=== PATIENT | male | born 1955 | race Two or more races ===

== ENCOUNTER 2023-03-20 10:22 | Inpatient (IN) | payer MEDICARE, MEDICAID ==
[~2023-03-20] VITALS: Ht 165.1 cm; Wt 71.8 kg
[2023-03-20] MEDS ORDERED: VANCOMYCIN 1 GM in IV D5W 250 ML IV ONE (11:00)
[2023-03-20] MEDS ORDERED: IV NS 0.9% 1,000 ML BAG IV ONE (11:00)
[2023-03-20] MEDS ORDERED: PIPERACILLIN /TAZOBACTAM 3.375 G in IV D5W 50 ML IV ONE (11:00)
--- NOTE | 2023-03-20 11:00 | NUR ---
pt BIBA for RLE wound. Hypotension on Ambulance. BP 98/48 upon arrival.
--- NOTE | 2023-03-20 11:15 | NUR ---
Straight cath inserted. 125cc collected. urine sent to lab
--- NOTE | 2023-03-20 11:22 | NUR ---
IV started on RW20g and LW 18g. flushing well no infiltration noted. Blood sent to lab
[2023-03-20 11:23] LABS: BASOPHILS % (AUTO) 0.6 % (0.0-2.0); EOSINOPHILS % (AUTO) 9.4 % (0.0-6.0); HEMATOCRIT 40 % (39-51); HEMOGLOBIN 12.6 g/dL (13.5-17.5); LYMPHOCYTES # (AUTO) 1.1 K/uL (0.8-4.8); LYMPHOCYTES % (AUTO) 19.4 % (20.0-44.0); MEAN CORPUSCULAR HGB CONC 32 g/dl (31.0-36.0); MEAN CORPUSCULAR VOLUME 84 fL (80-96); MONOCYTES # (AUTO) 0.5 K/uL (0.1-1.30); MONOCYTES % (AUTO) 9.9 % (2.0-12.0); NEUTROPHILS # (AUTO) 3.3 K/uL (1.8-8.9); NEUTROPHILS % (AUTO) 60.7 % (43.0-81.0); PLATELET COUNT (AUTO) 309 K/uL (150-450); RED BLOOD CELL COUNT(AUTO) 4.74 MIL/uL (4.5-6.0); WHITE BLOOD COUNT (AUTO) 5.5 K/uL (4.3-11.0)
--- NOTE | 2023-03-20 11:23 | NUR ---
IV medication started. no infiltration noted
[2023-03-20 11:35] LABS: CALCIUM, SERUM 9.2 mg/dL (8.5-10.1); CARBON DIOXIDE 26 mmol/L (21-32); CHLORIDE 107 mmol/L (98-107); CREATININE 0.8 mg/dL (0.6-1.3); GLUCOSE 101 mg/dL (74-106); POTASSIUM 4.5 mmol/L (3.5-5.1); SODIUM SERUM 140 mmol/L (136-145); UREA NITROGEN, BLOOD 35 mg/dL (7-18)
[2023-03-20 11:37] LABS: BILIRUBIN,URINE NEGATIVE (NEGATIVE); COLOR,URINE YELLOW (YELLOW); LEUKOCYTE ESTERASE ,URINE 3+ (NEGATIVE); NITRITE, URINE POSITIVE (NEGATIVE); PH,URINE 7.5 (5.0-8.0); PROTEIN,URINE 1+ mg/dl (NEGATIVE); UGLUCOSE NEGATIVE (NEGATIVE); UROBILINOGEN,URINE 0.2 EU/dL (0.2)
[2023-03-20 11:49] LABS: ALANINE AMINOTRANSFERASE 39 U/L (12-78); ALBUMIN 2.9 g/dL (3.4-5.0); ALKALINE PHOSPHATASE 107 U/L (46-116); ASPARTATE AMINOTRANSFERASE 36 U/L (15-37); BILIRUBIN,DIRECT 0.1 mg/dL (0.0-0.2); BILIRUBIN,TOTAL 0.1 mg/dL (0.2-1.0); TOTAL PROTEIN, SERUM 7.5 g/dL (6.4-8.2)
--- NOTE | 2023-03-20 12:21 | NUR ---
VERBAL CONSENT FROM SISTER TRINIDAD POE GIVEN, CONFIRMED BY 2RNS, CONSENT PHONE PLACED IN PT'S CHART.
[2023-03-20 12:30] LABS: BACTERIA,URINE Many /HPF (None Seen); SQUAMOUS EPITHELIAL CELL,UR Few /HPF (None Seen); WBC,URINE TOO NUMEROUS TO COUN /HPF (0-3)
--- NOTE | 2023-03-20 12:33 | NUR ---
SPOKE TO CHANGE ATTENDANT CLIFTON [phone]. ASKING FOR MD NOTE AND FACESHEET TO BE FAXED TO [phone]
--- NOTE | 2023-03-20 13:00 | NUR ---
called dr rosa, speaking with dr frias
--- NOTE | 2023-03-20 13:29 | NUR ---
CALLED NURSING SUP REGARDING PT BED
--- NOTE | 2023-03-20 14:19 | NUR ---
BED GIVEN 105
--- NOTE | 2023-03-20 14:50 | NUR ---
Report given to financial consultant for [facility]. Will send pt as soon as room is clean
--- NOTE | 2023-03-20 15:12 | NUR ---
PT TRANSFERRED TO [facility] WITH ACLS PROTOCOLS IN PLACE
--- NOTE | 2023-03-20 15:20 | NUR ---
RECEIVED PATIENT FROM ER, ALERT, COOPERATIVE. PT IS BEDBOUND, OBTUND, CRISTHIAN WITH FUNCTIONAL QUADRIPLEGIA. SKIN PROBLEM DOCUMENTED, NON HEALING WOUND RIGHT FOOT. PT S/P TRACH, NO MORE VENT DEPENDENT, ON RA WITH 100% SATURATION. S/P G-TUBE, DIET IS GLUCERNA 1.2 AT 50ML/HR. IV ACCESS RIGHT AND LEFT HANDS AND RIGHT UPPER ARM PICC LINE. WILL CONTINUE TO MONITOR.
[2023-03-20] MEDS ORDERED: ASCO-352 GT (16:31)
[2023-03-20] MEDS ORDERED: APIX5TAB GT (16:31)
[2023-03-20] MEDS ORDERED: DOCU-141 GT (16:31)
[2023-03-20] MEDS ORDERED: METO25TA20 GT (16:31)
[2023-03-20] MEDS ORDERED: DOXA2TAB2 GT (16:31)
[2023-03-20] MEDS ORDERED: FAMO20TA8 GT (16:31)
[2023-03-20] MEDS ORDERED: CHLO473M5 MM (16:31)
[2023-03-20] MEDS ORDERED: ASPI-1169 GT (16:31)
[2023-03-20] MEDS ORDERED: ALBU18HF2 IH ×2 (16:31)
[2023-03-20] MEDS ORDERED: MAGN400O6 GT (16:31)
[2023-03-20] MEDS ORDERED: INSU100V11 SQ (16:31)
[2023-03-20] MEDS ORDERED: MULT9LIQ6 GT (16:31)
[2023-03-20] MEDS ORDERED: NA P133E RC (16:31)
[2023-03-20] MEDS ORDERED: AMLO-212 GT (16:31)
[2023-03-20] MEDS ORDERED: AMIN30LI2 GT (16:31)
[2023-03-20] MEDS ORDERED: NUT.250L18 GT (16:31)
[2023-03-20] MEDS ORDERED: ARGI1POW13 GT (16:31)
[2023-03-20] MEDS ORDERED: ACET650S26 GT ×2 (16:31)
[2023-03-20] MEDS ORDERED: BISA10SU11 RC (16:31)
[2023-03-20] MEDS ORDERED: POTA20PA3 GT (16:31)
[2023-03-20] MEDS ORDERED: FURO-144 GT (16:31)
[2023-03-20] MEDS ORDERED: CRAN425C6 GT (16:31)
[2023-03-20] MEDS ORDERED: ISOS30TA86 GT (16:31)
[2023-03-20] MEDS ORDERED: LEVE500T9 GT (16:31)
[2023-03-20] MEDS ORDERED: HYDR-4076 GT (16:31)
[2023-03-20] MEDS ORDERED: MAGN400T26 GT (16:31)
[2023-03-20] MEDS ORDERED: POVI3780 TP (16:31)
[2023-03-20] MEDS ORDERED: Medication Not On Formulary EA (Cranberry Extract (Cranberry) 850 MG) GT SCH (17:00)
[2023-03-20] MEDS ORDERED: BISACODYL SUPP (10 MG) 10 MG/SUPP.RECT SUPP.RECT RC PRN (17:00)
[2023-03-20] MEDS ORDERED: MAGNESIUM HYDROXIDE 30 ML UDC GT PRN (17:00)
[2023-03-20] MEDS ORDERED: NA PHOS,M-B/NA PHOS,DI-BA 1 EA ENEMA RC PRN (17:00)
[2023-03-20] MEDS ORDERED: ACETAMINOPHEN 650 MG/20.3 ML UDC GT PRN (17:00)
[2023-03-20] MEDS ORDERED: ALBUTEROL FS 2.5 MG/0.5 ML VIAL.NEB IH PRN (17:30)
[2023-03-20] MEDS: CHLORHEXIDINE GLUCONATE 15 ML UDC MM SCH ×2 (17:54→17:58)
[2023-03-20] MEDS: FAMOTIDINE (20 MG) 20 MG TABLET GT SCH (17:58)
[2023-03-20] MEDS: ASPIRIN 81 MG TAB.CHEW GT SCH (17:58)
[2023-03-20] MEDS: ASCORBIC ACID 500 MG TABLET GT SCH (17:58)
[2023-03-20] MEDS: MULTIVIT W/MINERALS 1 TAB TABLET GT SCH (17:59)
[2023-03-20] MEDS: MAGNESIUM OXIDE 400 MG TABLET GT SCH (17:59)
[2023-03-20] MEDS ORDERED: Medication Not On Formulary EA (Arginine/Ascorbate Sod/Vite AC (Arginaid Powder) 1 EACH) GT SCH (18:00)
[2023-03-20] MEDS ORDERED: GLUCERNA 1.2 1,000 ML BOTTLE NG PRN (18:00)
[2023-03-20] MEDS ORDERED: PROSOURCE / PROSTAT (PYXIS) 30 ML UDC GT SCH (18:00)
[2023-03-20] MEDS: APIXABAN 5 MG TABLET GT SCH (18:01)
[2023-03-20] MEDS: IV NS 0.9% 1,000 ML IV PRN (18:03)
--- NOTE | 2023-03-20 18:50 | NUR ---
RN CLOSING NOTE. PT ASLEEP, ALL MEDS ADMINISTERED, ALL NEEDS ATTENDED. SAFETY MEASURES IMPLEMENTED, BED LOCKED AND IN LOWEST POSITION. WILL ENDORSE TO THE BULL RIVETER FOR JUAN PABLO.
--- NOTE | 2023-03-20 19:35 | NUR ---
RN OPENING NOTE RECEIVED PATIENT IN BED; AWAKE, ALERT AND ORIENTED X 1-2. ON ROOM AIR; TOLERATING WELL SATURATING @ 100%. BREATHING EVEN AND UNLABORED. ON EXTERNAL CARDIAC MONITORING WHICH READS A FLUTTER HR-74 BPM. NO S/S OF PAIN OR DISCOMFORT NOTED AT THIS TIME. WITH ARIADNA PICC LINE; PATENT, INTACT AND SALINE LOCKED. ANOTHER IV ACCESS ON RIGHT WRIST 20g; PATENT AND INTACT INFUSING WITH NS 1L REGULATED @ 100 ML/HR; FLUSHES WELL. WITH G-TUBE IN PLACE; PATENT AND INTACT RUNNING WITH GLUCERNA 1.2 REGULATED @ 50 ML/HR; FLUSHING WELL. NEEDS ANTICIPATED. SAFETY PRECAUTIONS IMPLEMENTED: HEAD OF BED ELEVATED, CALL LIGHT AND TABLE WITHIN REACH, SIDE RAILS UP X 3, BED IN LOWEST LOCKED POSITION. WILL CONTINUE TO MONITOR THROUGHOUT SHIFT.
[2023-03-20 20:00] VITALS: BP 111/52
[2023-03-20] MEDS: CEFTRIAXONE 1 G in IV D5W 50 ML IV SCH (20:27)
[2023-03-20] MEDS: LEVETIRACETAM SOL (5 ML) 100 MG/ML UDC GT SCH (20:30)
--- NOTE | 2023-03-20 21:12 | NUR ---
UNABLE TO PERFORM ARTERIAL U/S OF LOWER EXTREMITIES. BOTH LEGS ARE CONTRACTED. INFORMED RN TREVER.
[2023-03-21] VITALS: BP 99/50
[2023-03-21 04:00] VITALS: BP 99/54
--- NOTE | 2023-03-21 06:45 | NUR ---
RN NOTE CALLED TRINIDAD POE X 3 (SISTER:[phone]) TO GET TELEPHONE CONSENT FOR WOUND DEBRIDEMENT; UNABLE TO CONTACT. LEFT VOICEMAIL; AWAITING CALL BACK. CALLED TONIE POE (BROTHER:[phone]); HE CAN'T GIVE A CONSENT INSTEAD HE SAID TRINIDAD IS THE ONE WHO WILL GIVE THE CONSENT.
--- NOTE | 2023-03-21 06:50 | NUR ---
RN CLOSING NOTE PATIENT IN BED; AWAKE, A/O X 1-2. STILL ON ROOM AIR; WELL TOLERATING. IN NO ACUTE DISTRESS. ON EXTERNAL CARDIAC MONITORING WHICH READS A FLUTTER HR-63 BPM. NO S/S OF PAIN OR DISCOMFORT AT THIS TIME. WITH ARIADNA PICC LINE; PATENT, INTACT AND SALINE LOCKED. ANOTHER IV ACCESS ON RIGHT WRIST 20g; PATENT AND INTACT INFUSING WITH NS 1L REGULATED @ 100 ML/HR; FLUSHES WELL. WITH G-TUBE IN PLACE; PATENT AND INTACT RUNNING WITH GLUCERNA 1.2 RUNNING @ 50 ML/HR; FLUSHING WELL. ALL NEEDS ATTENDED. SAFETY PRECAUTIONS MAINTAINED: HEAD OF BED ELEVATED, CALL LIGHT AND TABLE WITHIN REACH, SIDE RAILS UP X 3, BED IN LOWEST LOCKED POSITION. ENDORSED TO MORNING SHIFT FOR JUAN PABLO.
[2023-03-21 08:00] VITALS: BP 117/59
[2023-03-21 08:01] LABS: BASOPHILS # (AUTO) 0.1 K/uL (0.0-0.2); BASOPHILS % (AUTO) 0.9 % (0.0-2.0); EOSINOPHILS % (AUTO) 11.9 % (0.0-6.0); HEMATOCRIT 36 % (39-51); HEMOGLOBIN 11.3 g/dL (13.5-17.5); LYMPHOCYTES # (AUTO) 1.1 K/uL (0.8-4.8); LYMPHOCYTES % (AUTO) 18.3 % (20.0-44.0); MEAN CORPUSCULAR HGB CONC 31 g/dl (31.0-36.0); MEAN CORPUSCULAR VOLUME 84 fL (80-96); MONOCYTES # (AUTO) 0.6 K/uL (0.1-1.30); MONOCYTES % (AUTO) 9.5 % (2.0-12.0); NEUTROPHILS # (AUTO) 3.5 K/uL (1.8-8.9); NEUTROPHILS % (AUTO) 59.4 % (43.0-81.0); PLATELET COUNT (AUTO) 285 K/uL (150-450); RED BLOOD CELL COUNT(AUTO) 4.31 MIL/uL (4.5-6.0); WHITE BLOOD COUNT (AUTO) 5.8 K/uL (4.3-11.0)
[2023-03-21 08:22] LABS: CREATININE 0.8 mg/dL (0.6-1.3); POTASSIUM 3.8 mmol/L (3.5-5.1)
--- NOTE | 2023-03-21 08:48 | NUR ---
WOUND CARE CONSULT: PT PRESENTS WITH SACRAL SCARRING, SCARRING TO LEFT LATERAL ANKLE, FRAGILE SKIN, RT 2ND TOE AND RT HEEL PURULENT WOUNDS, PRESENT ON ADMISSION. PT HAS LOWER EXTREMITY CONTRACTURES. PT IS INCONTINENT. DEFER TO PODIATRY FOR WOUND TREATMENT PLAN. DISCUSSED SKIN PROTECTION WITH NURSING STAFF. M D IN AGREEMENT WITH PLAN OF CARE. PT IS ON [place] [facility] LOW AIRLOSS BED.
[2023-03-21] MEDS ORDERED: Z GUARD REMEDY 4 OZ OINT TP PRN (09:00)
[2023-03-21] MEDS: APIXABAN 5 MG TABLET GT SCH ×2 (09:00→17:00)
--- NOTE | 2023-03-21 11:27 | NUR ---
RN NOTE PATIENT'S SISTER TRINIDAD ([phone] CONSENTED ON TELEPHONE, FOR PATIENT TO HAVE MRI OF RIGHT FOOT WITHOUT CONTRAST, AND FOR RIGHT FOOT WOUND DEBRIDEMENT, PARTIAL CALCENECTOMY, POSSIBLE RIGHT SECOND TOE AMPUTATION, AND BLOOD TRANSFUSION CONSENTS PLACED IN CHART.
[2023-03-21] MEDS: VANCOMYCIN 1 GM in IV D5W 250ml IV SCH ×2 (11:41→22:00)
[2023-03-21] MEDS: DAKINS QUARTER STRENGTH (0.125%) 480 ML BOTTLE TOP SCH (11:42)
[2023-03-21] MEDS: Z GUARD REMEDY 4 OZ OINT TP SCH (11:42)
[2023-03-21] MEDS: AMMONIUM LACTATE 227 GM BOTTLE TP SCH ×2 (11:43→17:24)
[2023-03-21 12:00] VITALS: BP 131/78
[2023-03-21] MEDS: PROSOURCE / PROSTAT (PYXIS) 30 ML UDC GT SCH ×2 (13:49→19:22)
[2023-03-21] MEDS: FAMOTIDINE (20 MG) 20 MG TABLET GT SCH ×2 (13:52→19:22)
[2023-03-21] MEDS: LEVETIRACETAM SOL (5 ML) 100 MG/ML UDC GT SCH ×2 (13:52→20:47)
[2023-03-21] MEDS: IV NS 0.9% 1,000 ML IV PRN ×2 (13:53→23:47)
[2023-03-21 16:00] VITALS: BP 122/66
--- NOTE | 2023-03-21 17:17 | NUR ---
RN NOTE WOUND CULTURE OF R HEEL SENT TO LAB AT THIS TIME.
--- NOTE | 2023-03-21 19:09 | NUR ---
RN NOTE ELIQUIS DOES HELD AT THIS TIME DUE TO POSSIBLE AMPUTATION FRIDAY.
[2023-03-21] MEDS: CHLORHEXIDINE GLUCONATE 15 ML UDC MM SCH (19:22)
[2023-03-21] MEDS: ASPIRIN 81 MG TAB.CHEW GT SCH (19:22)
[2023-03-21] MEDS: MAGNESIUM OXIDE 400 MG TABLET GT SCH (19:23)
[2023-03-21] MEDS: ASCORBIC ACID 500 MG TABLET GT SCH (19:23)
[2023-03-21] MEDS: MULTIVIT W/MINERALS 1 TAB TABLET GT SCH (19:23)
--- NOTE | 2023-03-21 19:53 | NUR ---
RN CLOSING NOTE PATIENT IN BED; AWAKE, A/O X 1-2. BREATHING STILL ON ROOM AIR; WELL TOLERATING. IN NO ACUTE DISTRESS. ON EXTERNAL CARDIAC MONITORING WHICH READS A FLUTTER HR 77 BPM. NO S/S OF PAIN OR DISCOMFORT AT THIS TIME. WITH ARIADNA PICC LINE; PATENT, INTACT AND SALINE LOCKED. ANOTHER IV ACCESS ON RIGHT WRIST 20g; PATENT AND INTACT INFUSING WITH NS 1L REGULATED @ 100 ML/HR; FLUSHES WELL. WITH G-TUBE IN PLACE; PATENT AND INTACT RUNNING WITH GLUCERNA 1.2 RUNNING @ 65ML/HR; FLUSHING WELL. ALL NEEDS ATTENDED. SAFETY PRECAUTIONS MAINTAINED: HEAD OF BED ELEVATED, CALL LIGHT AND TABLE WITHIN REACH, SIDE RAILS UP X 3, BED IN LOWEST LOCKED POSITION. ENDORSED TO DIRECTOR ASSET FOR JUAN PABLO.
[2023-03-21 20:00] VITALS: BP 131/73
[2023-03-21] MEDS: CEFTRIAXONE 1 G in IV D5W 50 ML IV SCH (20:45)
[2023-03-21] MEDS: MUPIROCIN OINT 2% 22 GM TUBE NS SCH (20:47)
[2023-03-22] VITALS: BP 127/63
[2023-03-22 04:00] VITALS: BP 116/65
[2023-03-22] MEDS: GLUCERNA 1.2 1,000 ML BOTTLE NG PRN (06:02)
--- NOTE | 2023-03-22 06:51 | NUR ---
RN NOTES PATIENT REMAOINS STABLE NO SIGNIFICANT CHANGES. ALL DUE MEDS GIVEN ORDERED. NGT RUNNING @ 65 CC/HR TOLERATING WELL NO RESIDUAL NOTED. ALL NEEDS ATTENDED. KEPT CLEAN AND DRY AT ALL TIMES. WILL ENDORSED TO [id number] SHIFT FOR JUAN PABLO
[2023-03-22 08:00] VITALS: BP 143/59
[2023-03-22 09:34] LABS: BASOPHILS # (AUTO) 0.1 K/uL (0.0-0.2); BASOPHILS % (AUTO) 0.9 % (0.0-2.0); EOSINOPHILS % (AUTO) 11.9 % (0.0-6.0); HEMATOCRIT 38 % (39-51); HEMOGLOBIN 11.8 g/dL (13.5-17.5); LYMPHOCYTES # (AUTO) 1.4 K/uL (0.8-4.8); LYMPHOCYTES % (AUTO) 20.2 % (20.0-44.0); MEAN CORPUSCULAR HGB CONC 31 g/dl (31.0-36.0); MEAN CORPUSCULAR VOLUME 84 fL (80-96); MONOCYTES # (AUTO) 0.6 K/uL (0.1-1.30); MONOCYTES % (AUTO) 9.3 % (2.0-12.0); NEUTROPHILS # (AUTO) 3.9 K/uL (1.8-8.9); NEUTROPHILS % (AUTO) 57.7 % (43.0-81.0); PLATELET COUNT (AUTO) 252 K/uL (150-450); RED BLOOD CELL COUNT(AUTO) 4.47 MIL/uL (4.5-6.0); WHITE BLOOD COUNT (AUTO) 6.7 K/uL (4.3-11.0)
[2023-03-22 09:45] LABS: ALBUMIN 2.8 g/dL (3.4-5.0); BILIRUBIN,TOTAL 0.2 mg/dL (0.2-1.0); CALCIUM, SERUM 8.7 mg/dL (8.5-10.1); CREATININE 0.6 mg/dL (0.6-1.3); POTASSIUM 3.6 mmol/L (3.5-5.1); TOTAL PROTEIN, SERUM 7.2 g/dL (6.4-8.2)
[2023-03-22] MEDS: MUPIROCIN OINT 2% 22 GM TUBE NS SCH ×2 (09:48→21:30)
[2023-03-22] MEDS: AMMONIUM LACTATE 227 GM BOTTLE TP SCH ×2 (09:48→17:00)
[2023-03-22] MEDS: DAKINS QUARTER STRENGTH (0.125%) 480 ML BOTTLE TOP SCH (09:48)
[2023-03-22] MEDS: Z GUARD REMEDY 4 OZ OINT TP SCH (09:48)
[2023-03-22] MEDS: IV NS 0.9% 1,000 ML IV PRN ×2 (09:51→19:50)
[2023-03-22] MEDS: PROSOURCE / PROSTAT (PYXIS) 30 ML UDC GT SCH ×2 (10:19→18:40)
[2023-03-22] MEDS: APIXABAN 5 MG TABLET GT SCH ×2 (10:19→18:38)
[2023-03-22] MEDS: LEVETIRACETAM SOL (5 ML) 100 MG/ML UDC GT SCH ×2 (10:20→21:26)
[2023-03-22] MEDS: CHLORHEXIDINE GLUCONATE 15 ML UDC MM SCH ×2 (10:20→18:40)
[2023-03-22] MEDS: VANCOMYCIN 1 GM in IV D5W 250ml IV SCH ×2 (10:20→22:03)
[2023-03-22] MEDS: FAMOTIDINE (20 MG) 20 MG TABLET GT SCH ×2 (10:20→18:40)
--- NOTE | 2023-03-22 10:21 | NUR ---
RN NOTE PER ROBERTO AT PHARMACY OK TO GIVE 1000 VANCO DOSE. TROUGH LEVEL IS ORDERED FOR TODAY AT 1900.
[2023-03-22 12:00] VITALS: BP 149/54
[2023-03-22 16:00] VITALS: BP 150/64
[2023-03-22] MEDS: ASCORBIC ACID 500 MG TABLET GT SCH (18:39)
[2023-03-22] MEDS: ASPIRIN 81 MG TAB.CHEW GT SCH (18:40)
[2023-03-22] MEDS: MAGNESIUM OXIDE 400 MG TABLET GT SCH (18:40)
[2023-03-22] MEDS: MULTIVIT W/MINERALS 1 TAB TABLET GT SCH (18:40)
[2023-03-22] MEDS: CEFTRIAXONE 1 G in IV D5W 50 ML IV SCH (19:40)
--- NOTE | 2023-03-22 19:52 | NUR ---
RN CLOSING NOTE PATIENT IN BED; AWAKE, A/O X 3-4. BREATHING STILL ON ROOM AIR; WELL TOLERATING. IN NO ACUTE DISTRESS. ON EXTERNAL CARDIAC MONITORING WHICH READS A FLUTTER HR 93 BPM. NO S/S OF PAIN OR DISCOMFORT AT THIS TIME. WITH ARIADNA PICC LINE; PATENT, INTACT AND SALINE LOCKED. ANOTHER IV ACCESS ON RIGHT WRIST 20g; PATENT AND INTACT INFUSING WITH NS 1L REGULATED @ 100 ML/HR; FLUSHES WELL. WITH G-TUBE IN PLACE; PATENT AND INTACT RUNNING WITH GLUCERNA 1.2 RUNNING @ 65ML/HR; FLUSHING WELL. ALL NEEDS ATTENDED. KEPT WOUNDS CLEAN AND DRY. ALL SAFETY PRECAUTIONS MAINTAINED: HEAD OF BED ELEVATED AT 40 DEGREES, CALL LIGHT AND TABLE WITHIN REACH, SIDE RAILS UP X 3, BED IN LOWEST LOCKED POSITION. ENDORSED TO WATCHMAKING TEACHER FOR JUAN PABLO.
[2023-03-22 20:00] VITALS: BP_SYST 108; BP_SYST 118; BP_SYST 148; BP_DIAS 39; BP_DIAS 89
[2023-03-23] VITALS (7 sets, daily range): BP systolic 110–139; BP diastolic 60–73
[2023-03-23] MEDS: GLUCERNA 1.2 1,000 ML BOTTLE NG PRN ×2 (00:45→17:35)
--- NOTE | 2023-03-23 04:42 | NUR ---
CLOSING NOTES: ALERT / ORX1 HIS EYES WILL WATCH WHAT I AM DOING TACH CARE AND ORAL CARE GIVEN GT FEEDING RUNNING VIA PUMP NO RESIDUAL HOB KEPT ELEVATED 40 DEGREES ASP PRECAUTIONS DIAPER ON VANCO TROUGH WAS DONE AT 2100 LAST NIGHT RESULTS BEING 14
[2023-03-23 07:30] LABS: CALCIUM, SERUM 8.8 mg/dL (8.5-10.1); CREATININE 0.6 mg/dL (0.6-1.3); POTASSIUM 3.4 mmol/L (3.5-5.1)
--- NOTE | 2023-03-23 07:56 | NUR ---
RN OPENING NOTE RECEIVED PATIENT IN BED AO x 1, ABLE TO RESPONDS PHYSICAL STIMULI. RESPIRATORY EVEN AND UNLABORED IN ROOM AIR. IN NO ACUTE RESPIRATORY DISTRESS OBSERVED. SKIN IS WARM TO TOUCH, KEEP CLEAN/DRY. KEPT ELEVATED HOB FOR ASPIRATION PRECAUTION AND ENSURE AIRWAY, ALSO LOWEST BED POSITIONED. BED ALARM IS ON AT ALL TIMES FOR SAFETY. CALL LIGHT WITHIN REACH, WILL CONTINUE TO MONITOR.
[2023-03-23] MEDS ORDERED: POTASSIUM CHLORIDE 20 MEQ POWDER PACKET PO SCH (09:30)
[2023-03-23] MEDS: LEVETIRACETAM SOL (5 ML) 100 MG/ML UDC GT SCH ×2 (09:38→21:14)
[2023-03-23] MEDS: CHLORHEXIDINE GLUCONATE 15 ML UDC MM SCH ×2 (09:38→17:25)
[2023-03-23] MEDS: FAMOTIDINE (20 MG) 20 MG TABLET GT SCH ×2 (09:39→17:24)
[2023-03-23] MEDS: PROSOURCE / PROSTAT (PYXIS) 30 ML UDC GT SCH ×2 (09:39→17:25)
[2023-03-23] MEDS: APIXABAN 5 MG TABLET GT SCH ×2 (09:41→17:00)
[2023-03-23] MEDS: DAKINS QUARTER STRENGTH (0.125%) 480 ML BOTTLE TOP SCH (09:43)
[2023-03-23] MEDS: AMMONIUM LACTATE 227 GM BOTTLE TP SCH ×2 (09:44→17:26)
[2023-03-23] MEDS: VANCOMYCIN 1 GM in IV D5W 250ml IV SCH ×2 (09:44→21:14)
[2023-03-23] MEDS: Z GUARD REMEDY 4 OZ OINT TP SCH (09:44)
[2023-03-23] MEDS: IV NS 0.9% 1,000 ML IV PRN (10:02)
[2023-03-23] MEDS ORDERED: POTASSIUM CHLORIDE 20 MEQ POWDER PACKET PO ONE (11:30)
--- NOTE | 2023-03-23 11:51 | NUR ---
DR. WARNER ORDERED POTASSIUM 40 EMQ, BUT PATIENT HAD [address] WARNER CANCELLED POTASSIUM 40 MEQ.
[2023-03-23] MEDS: MUPIROCIN OINT 2% 22 GM TUBE NS SCH ×2 (14:02→20:34)
[2023-03-23] MEDS: MULTIVIT W/MINERALS 1 TAB TABLET GT SCH (17:24)
[2023-03-23] MEDS: ASPIRIN 81 MG TAB.CHEW GT SCH (17:24)
[2023-03-23] MEDS: MAGNESIUM OXIDE 400 MG TABLET GT SCH (17:24)
[2023-03-23] MEDS: ASCORBIC ACID 500 MG TABLET GT SCH (17:25)
--- NOTE | 2023-03-23 17:27 | NUR ---
PATIENT GOING HAVE SX TOMORROW, ASKED DR. MOMIN AND WILL HOLD ELIQUISE AT THIS TIME.
--- NOTE | 2023-03-23 18:30 | NUR ---
RN CLOSING NOTE PATIENT RESTING IN BED. IN NO ACUTE DISTRESS OBSERVED. RESPIRATORY EVEN AND UNLABORED IN ROOM AIR, O2SAT 100%, NO SOB OR DESATURATION NOTED. SKIN IS WARM TO TOUCH KEEP CLEAN/DRY. KEPT ELEVATED HOB FOR ENSURE AIRWAY AND ASPIRATION PRECAUTION, ALSO LOWEST BED POSITION. BED ALARM IS ON AT ALL TIMES FOR SAFETY. PATIENT GOING PROCEDURE FOR AMPUTATE AND NPO AFTER MN. CALL LIGHT WITHIN REACH, WILL ENDORSE PARTS EXPEDITER.
--- NOTE | 2023-03-23 19:41 | NUR ---
RN OPENING NOTE RECEIVED PATIENT IN BED AO x 1. RESPIRATORY EVEN AND UNLABORED IN ROOM AIR. IN NO ACUTE RESPIRATORY DISTRESS OBSERVED. SKIN IS WARM TO TOUCH, KEEP CLEAN/DRY. KEPT ELEVATED HOB FOR ASPIRATION PRECAUTION AND ENSURE AIRWAY, ALSO LOWEST BED POSITIONED. BED ALARM IS ON AT ALL TIMES FOR SAFETY. G TUBE RUNNING GLUCERNA 1.2 @65 ML/HR TOLERATING WELL. NO RESIDUAL NOTED.CALL LIGHT WITHIN REACH.
[2023-03-23] MEDS: CEFTRIAXONE 1 G in IV D5W 50 ML IV SCH (19:48)
--- NOTE | 2023-03-24 00:08 | NUR ---
RN NOTE PT DISCONNECTED FROM FEEDING AT THIS TIME HE IS TO MAINTAIN NPO FOR DEBRIDEMENT IN THE AM.
[2023-03-24 00:33] VITALS: BP 142/81
[2023-03-24 04:00] VITALS: BP 145/83
--- NOTE | 2023-03-24 06:50 | NUR ---
RN CLOSING NOTE PATIENT IN BED AO x 2. RESPIRATORY EVEN AND UNLABORED IN ROOM AIR. IN NO ACUTE RESPIRATORY DISTRESS OBSERVED. SKIN IS WARM TO TOUCH, KEEP CLEAN/DRY. KEPT ELEVATED HOB FOR ASPIRATION PRECAUTION AND ENSURE AIRWAY, ALSO LOWEST BED POSITIONED. BED ALARM IS ON AT ALL TIMES FOR SAFETY. NPO SINCE MIDNIGHT FOR DEBRIDEMENT PROCEDURE TODAY.CALL LIGHT WITHIN REACH.CALL LIGHT WITHIN REACH HOB ELEVATED. BILATERAL SIDE RAILS UP FOR SAFETY.
--- NOTE | 2023-03-24 07:00 | NUR ---
RN OPENING NOTE RECEIVE PATIENT IN BED A0 X1, IN BED, ON ROOM AIR BREATHING EVEN AND UNLABORED, IV SITE ARIADNA PICC LINE WITH NS RUNNING 100ML/HR. IV FLUSHING WELL AND INTACT. HEAD OF BED ELEVATED, BED IN LOWEST AND LOCKED POSITION, ALL SAFETY MEASURES IN PLACE, CALL LIGHT WITHIN REACH. WILL CONTINUE TO MONITOR
[2023-03-24 08:00] VITALS: BP 120/47
[2023-03-24 08:04] LABS: CALCIUM, SERUM 8.7 mg/dL (8.5-10.1); CREATININE 0.7 mg/dL (0.6-1.3); POTASSIUM 3.6 mmol/L (3.5-5.1)
[2023-03-24] MEDS: CHLORHEXIDINE GLUCONATE 15 ML UDC MM SCH ×2 (08:17→16:33)
[2023-03-24] MEDS: LEVETIRACETAM SOL (5 ML) 100 MG/ML UDC GT SCH ×2 (08:17→20:13)
[2023-03-24] MEDS: APIXABAN 5 MG TABLET GT SCH ×2 (08:18→22:11)
--- NOTE | 2023-03-24 08:19 | NUR ---
RN NOTE CHANO HELD, PATIENT IS SCHEDULED FOR WOUND DEBRIDEMENT TODAY
[2023-03-24] MEDS: FAMOTIDINE (20 MG) 20 MG TABLET GT SCH ×2 (08:20→16:33)
[2023-03-24] MEDS: DAKINS QUARTER STRENGTH (0.125%) 480 ML BOTTLE TOP SCH (08:33)
[2023-03-24] MEDS: Z GUARD REMEDY 4 OZ OINT TP SCH (08:34)
[2023-03-24] MEDS: AMMONIUM LACTATE 227 GM BOTTLE TP SCH ×2 (08:35→16:34)
[2023-03-24] MEDS: MUPIROCIN OINT 2% 22 GM TUBE NS SCH ×2 (08:35→22:13)
[2023-03-24] MEDS: PROSOURCE / PROSTAT (PYXIS) 30 ML UDC GT SCH ×2 (08:36→16:33)
[2023-03-24] MEDS: VANCOMYCIN 1 GM in IV D5W 250ml IV SCH (10:31)
--- NOTE | 2023-03-24 11:50 | NUR ---
RN NOTES: PT PICKED UP BY SURGERY STAFF, CALLED SISTER VIA PHONE CONSENTED BLOOD TRANSFUSION IN CASE NEEDED, PT LEFT IN STABLE CONDITION
[2023-03-24] MEDS ORDERED: BUPIVACAINE 0.25% 75 MG/30 ML VIAL ONE (12:55)
[2023-03-24] MEDS ORDERED: LIDOCAINE HCL/MPF 1% 30 ML VIAL IJ ONE (12:55)
[2023-03-24] MEDS ORDERED: LEVOFLOXACIN 500 MG /D5W 100ML 500 MG in PREMIX 1 EA IV SCH (14:00)
--- NOTE | 2023-03-24 15:00 | NUR ---
RN NOTES: PT IS BACK PER SURGERY RN MAY RIGHT HEEL DEBRIDEMENT DONE, RIGHT SECOND TOE AMPUTATION DONE, NO BLEEDING NOTED AT THIS TIME, VITAL SIGNS BP 123/58, TEMP 97.8,HR 94,RR 14, O2 SAT 100 % ON ROOM AIR WILL MONITOR
[2023-03-24 16:00] VITALS: BP 120/47
[2023-03-24] MEDS: ASPIRIN 81 MG TAB.CHEW GT SCH (17:45)
[2023-03-24] MEDS: MULTIVIT W/MINERALS 1 TAB TABLET GT SCH (17:45)
[2023-03-24] MEDS: ASCORBIC ACID 500 MG TABLET GT SCH (17:46)
[2023-03-24] MEDS: MAGNESIUM OXIDE 400 MG TABLET GT SCH (17:49)
--- NOTE | 2023-03-24 19:30 | NUR ---
PROJECT ASSISTANT OPENING NOTES RECEIVED PATIENT IN BED AWAKE. A/O x 2. ON ROOM AIR, BREATHING EVEN AND UNLABORED, RESPIRATORY EVEN AND UNLABORED, NO ACUTE RESPIRATORY DISTRESS AND SOB NOTED AT THIS TIME. HOB ELEVATED FOR ASPIRATION PRECAUTION. PICC LINE ARIADNA RUNNING NS @100ML/HR. GT WITH GLUCERNA RUNNING @ 65ML/HR. SAFETY PRECAUSTIONS IN PLACE WITH BED IN LOWEST LOCKED POSITION, SIDE RAILS UPX 2. CALL LIGHT WITHIN EASY REACH. WILL CONTINUE WITH THE PLAN OF CARE.
--- NOTE | 2023-03-24 19:36 | NUR ---
RN CLOSING NOTE PATIENT IN BED AO x 2. RESPIRATORY EVEN AND UNLABORED IN ROOM AIR. IN NO ACUTE RESPIRATORY DISTRESS OBSERVED. SKIN IS WARM TO TOUCH, KEEP CLEAN/DRY. KEPT ELEVATED HOB FOR ASPIRATION PRECAUTION AND ENSURE AIRWAY, ALSO LOWEST BED POSITIONED. BED ALARM IS ON AT ALL TIMES FOR SAFETY.CALL LIGHT WITHIN REACH.CALL LIGHT WITHIN REACH HOB ELEVATED. BILATERAL SIDE RAILS UP FOR SAFETY.
[2023-03-24 20:00] VITALS: BP 127/60
[2023-03-24] MEDS: IV NS 0.9% 1,000 ML IV PRN (20:00)
[2023-03-24] MEDS: CIPROFLOXACIN HCL 500 MG TABLET PO SCH (20:13)
[2023-03-24] MEDS ORDERED: SULFAMETH/TRIMETH 800/160 MG 1 UDTAB TABLET PO SCH (21:00)
[2023-03-24 23:35] VITALS: BP 127/60
[2023-03-25] VITALS: BP 138/64
[2023-03-25] MEDS: GLUCERNA 1.2 1,000 ML BOTTLE NG PRN (01:41)
[2023-03-25] MEDS: IV NS 0.9% 1,000 ML IV PRN (05:47)
--- NOTE | 2023-03-25 07:14 | NUR ---
[employer] TECHNICAL MANAGER OPENING NOTES PATIENT RECEIVED IN BED. AO x2-3. CALM AND COOPERATIVE. ON TELE MONITOR. STATUS POST TRACH WITH CAP. ON ROOM AIR WITH BREATHING EVEN AND UNLABORED AND NO S/S OF RESPIRATORY DISTRESS OR SOB. SAFETY MEASURES IN PLACE, WITH BED IN LOWEST AND LOCKED POSITION, SIDE RAILS UP X3, BED ALARM ON, AND CALL LIGHT AND BEDSIDE TABLE WITHIN REACH. WILL CONTINUE TO MONITOR.
[2023-03-25] MEDS ORDERED: SULFAMETH/TRIMETH 800/160 MG 1 UDTAB TABLET GT SCH (07:25)
[2023-03-25 07:39] LABS: BASOPHILS % (AUTO) 0.5 % (0.0-2.0); EOSINOPHILS % (AUTO) 8.9 % (0.0-6.0); HEMATOCRIT 37 % (39-51); HEMOGLOBIN 11.9 g/dL (13.5-17.5); LYMPHOCYTES # (AUTO) 1.2 K/uL (0.8-4.8); LYMPHOCYTES % (AUTO) 16.1 % (20.0-44.0); MEAN CORPUSCULAR HGB CONC 33 g/dl (31.0-36.0); MEAN CORPUSCULAR VOLUME 84 fL (80-96); MONOCYTES # (AUTO) 0.7 K/uL (0.1-1.30); MONOCYTES % (AUTO) 8.9 % (2.0-12.0); NEUTROPHILS % (AUTO) 65.6 % (43.0-81.0); PLATELET COUNT (AUTO) 276 K/uL (150-450); RED BLOOD CELL COUNT(AUTO) 4.36 MIL/uL (4.5-6.0); WHITE BLOOD COUNT (AUTO) 7.6 K/uL (4.3-11.0)
[2023-03-25 07:51] LABS: CALCIUM, SERUM 8.6 mg/dL (8.5-10.1); CREATININE 0.7 mg/dL (0.6-1.3); POTASSIUM 3.7 mmol/L (3.5-5.1)
[2023-03-25 07:57] VITALS: BP 142/71
[2023-03-25 08:00] VITALS: BP 148/65
[2023-03-25] MEDS: CIPROFLOXACIN HCL 500 MG TABLET PO SCH (08:06)
[2023-03-25] MEDS: APIXABAN 5 MG TABLET GT SCH (08:08)
[2023-03-25] MEDS: FAMOTIDINE (20 MG) 20 MG TABLET GT SCH (08:08)
[2023-03-25] MEDS: CHLORHEXIDINE GLUCONATE 15 ML UDC MM SCH (08:08)
[2023-03-25] MEDS: LEVETIRACETAM SOL (5 ML) 100 MG/ML UDC GT SCH (08:08)
[2023-03-25] MEDS: PROSOURCE / PROSTAT (PYXIS) 30 ML UDC GT SCH (08:09)
[2023-03-25] MEDS ORDERED: SULF1TAB48 PO (08:48)
[2023-03-25] MEDS ORDERED: CIPR-262 PO (08:48)
[2023-03-25] MEDS: DAKINS QUARTER STRENGTH (0.125%) 480 ML BOTTLE TOP SCH (09:33)
[2023-03-25] MEDS: AMMONIUM LACTATE 227 GM BOTTLE TP SCH (09:33)
[2023-03-25] MEDS: Z GUARD REMEDY 4 OZ OINT TP SCH (09:33)
[2023-03-25] MEDS: MUPIROCIN OINT 2% 22 GM TUBE NS SCH (09:33)
--- NOTE | 2023-03-25 09:45 | NUR ---
PHOTO TAKEN OF AMPUTATED TOE. PICTURE PLACED IN CHART.
--- NOTE | 2023-03-25 11:33 | NUR ---
RAPID TEST GIVEN AND RETURNED TO LAB
[2023-03-25 12:00] VITALS: BP 119/54
== END 2023-03-25 15:58 | DRG 853 ==
LOC: ER 10:36 → TELE1 14:41 → MEDSG1 03-25 10:37
PROVIDERS: ADMIT Internal Medicine; ATTEND Internal Medicine
PROC: 02HV33Z Insertion of Infusion Device into Superior Vena Cava, Percutaneous Approach (ICD-10-PCS; 2023-03-20)
PROC: B548ZZA Ultrasonography of Superior Vena Cava, Guidance (ICD-10-PCS; 2023-03-20)
PROC: 0Y6R0Z1 Detachment at Right 2nd Toe, High, Open Approach (ICD-10-PCS; principal; 2023-03-24)
PROC: 0QBL0ZZ Excision of Right Tarsal, Open Approach (ICD-10-PCS; 2023-03-24)
DX: A41.9 Sepsis, unspecified organism (principal); R53.2 Functional quadriplegia; E11.52 Type 2 diabetes mellitus with diabetic peripheral angiopathy with gangrene; J96.10 Chronic respiratory failure, unspecified whether with hypoxia or hypercapnia; I69.351 Hemiplegia and hemiparesis following cerebral infarction affecting right dominant side; N39.0 Urinary tract infection, site not specified; M86.171 Other acute osteomyelitis, right ankle and foot; I70.92 Chronic total occlusion of artery of the extremities; I70.268 Atherosclerosis of native arteries of extremities with gangrene, other extremity; L97.414 Non-pressure chronic ulcer of right heel and midfoot with necrosis of bone; E11.51 Type 2 diabetes mellitus with diabetic peripheral angiopathy without gangrene; E11.621 Type 2 diabetes mellitus with foot ulcer; I50.9 Heart failure, unspecified; I11.0 Hypertensive heart disease with heart failure; R13.10 Dysphagia, unspecified; E78.5 Hyperlipidemia, unspecified; I48.0 Paroxysmal atrial fibrillation; Z74.01 Bed confinement status; M24.561 Contracture, right knee; M24.562 Contracture, left knee; E11.69 Type 2 diabetes mellitus with other specified complication; R56.9 Unspecified convulsions; Z20.822 Contact with and (suspected) exposure to COVID-19; M62.50 Muscle wasting and atrophy, not elsewhere classified, unspecified site; Z79.01 Long term (current) use of anticoagulants; S90.32XA Contusion of left foot, initial encounter; S90.31XA Contusion of right foot, initial encounter; X58.XXXA Exposure to other specified factors, initial encounter; Y92.9 Unspecified place or not applicable; Z93.1 Gastrostomy status; E87.6 Hypokalemia; K21.9 Gastro-esophageal reflux disease without esophagitis; Z93.0 Tracheostomy status; M20.11 Hallux valgus (acquired), right foot; Z79.51 Long term (current) use of inhaled steroids; Z79.4 Long term (current) use of insulin; Z79.82 Long term (current) use of aspirin; L97.514 Non-pressure chronic ulcer of other part of right foot with necrosis of bone
CPT/HCPCS: 36415; 71045-TC; 73630-TC; 80048-TC; 80053-TC; 80076-TC; 80202-TC; 81001; 83605-TC; 84484-TC; 85025-TC; 85652-TC; 85730-TC; 86140-TC; 87040-TC; 87081-TC; 87086-TC; 93307-TC; A4216; A4217; A4223; A4349; A4629; A6253; A6403; C9803; G0378; J0690; J0696; J1953; J1956; J2543; J3370; J3490; J7030; J7050; J7060

== ENCOUNTER 2023-07-02 10:33 | Inpatient (IN) | payer MEDICARE, MEDICAID ==
[~2023-07-02] VITALS: Ht 175.3 cm; Wt 68.7 kg
[2023-07-02] VITALS (15 sets, daily range): BP systolic 104–124; BP diastolic 42–66; TEMP 96.2; O2SAT 99–100
[~2023-07-02 10:33] MED LIST: ACET650S26 GT; ALBU18HF2 IH; AMIN30LI2 GT; AMLO-212 GT; APIX5TAB GT; ARGI1POW13 GT; ASCO-352 GT; ASPI-1169 GT; BISA10SU11 RC; CHLO473M5 MM; CIPR-262 PO; CRAN425C6 GT; DOCU-141 GT; DOXA2TAB2 GT; FAMO20TA8 GT; FURO-144 GT; HYDR-4076 GT; INSU100V11 SQ; ISOS30TA86 GT; LEVE500T9 GT; MAGN400O6 GT; MAGN400T26 GT; METO25TA20 GT; MULT9LIQ6 GT; NA P133E RC; NUT.250L18 GT; POTA20PA3 GT; POVI3780 TP; SULF1TAB48 PO
[2023-07-02] MEDS: CEFEPIME 1 GM in IV D5W 50 ML IV ONE ×2 (11:00→11:59)
[2023-07-02] MEDS ORDERED: VANCOMYCIN 1 GM in IV D5W 250 ML IV ONE (11:00)
[2023-07-02 11:26] LABS: BASOPHILS % (AUTO) 0.4 % (0.0-2.0); EOSINOPHILS # (AUTO) 0.3 K/uL (0.0-0.7); EOSINOPHILS % (AUTO) 3.8 % (0.0-6.0); LYMPHOCYTES # (AUTO) 0.5 K/uL (0.8-4.8); LYMPHOCYTES % (AUTO) 6.1 % (20.0-44.0); MEAN CORPUSCULAR HEMOGLOBIN 27 PG (26.0-33.0); MEAN CORPUSCULAR HGB CONC 33 g/dl (31.0-36.0); MEAN CORPUSCULAR VOLUME 83 fL (80-96); MONOCYTES # (AUTO) 0.3 K/uL (0.1-1.30); MONOCYTES % (AUTO) 4.1 % (2.0-12.0); NEUTROPHILS % (AUTO) 85.6 % (43.0-81.0); PLATELET COUNT (AUTO) 171 K/uL (150-450); RED CELL DISTRIBUTION WIDTH 19.4 % (11.5-15.0); WHITE BLOOD COUNT (AUTO) 8.1 K/uL (4.3-11.0)
[2023-07-02] MEDS ORDERED: NORM210S TP (11:29)
[2023-07-02] MEDS ORDERED: NUT.237L30 GT (11:29)
[2023-07-02] MEDS ORDERED: INSU100I47 SQ (11:29)
[2023-07-02] MEDS ORDERED: ACET-2605 GT (11:29)
[2023-07-02] MEDS ORDERED: IV NS 0.9% 1,000 ML BAG IV ONE (11:30)
[2023-07-02 11:33] LABS: CALCIUM, SERUM 9.3 mg/dL (8.5-10.1); CARBON DIOXIDE 27 mmol/L (21-32); CHLORIDE 106 mmol/L (98-107); CREATININE 0.6 mg/dL (0.6-1.3); GLUCOSE 125 mg/dL (74-106); POTASSIUM 5.4 mmol/L (3.5-5.1); SODIUM SERUM 139 mmol/L (136-145); UREA NITROGEN, BLOOD 55 mg/dL (7-18)
[2023-07-02 11:34] LABS: HEMOGLOBIN 6.3 g/dL (13.5-17.5)
[2023-07-02 11:35] LABS: HEMATOCRIT 19 % (39-51); INR 1.25 (0.91-1.10); PARTIAL THROMBOPLASTIN TIME 48.8 SEC (24.3-34.3)
[2023-07-02 11:38] LABS: ALANINE AMINOTRANSFERASE 41 U/L (12-78); ALBUMIN 1.8 g/dL (3.4-5.0); ALKALINE PHOSPHATASE 156 U/L (46-116); ASPARTATE AMINOTRANSFERASE 36 U/L (15-37); BILIRUBIN,TOTAL 0.2 mg/dL (0.2-1.0); TOTAL PROTEIN, SERUM 6.6 g/dL (6.4-8.2)
[2023-07-02 12:02] LABS: LACTIC ACID 2.4 mmol/L (0.4-2.0)
[2023-07-02] MEDS ORDERED: CEFTRIAXONE 1GM BAG (ER ONLY) 0 ML IV ONE (12:07)
[2023-07-02 13:35] LABS: COLOR,URINE AMBER (YELLOW); PH,URINE 7.5 (5.0-8.0)
[2023-07-02 13:36] LABS: BILIRUBIN,URINE NEGATIVE (NEGATIVE); KETONES,URINE N mg/dL (NEGATIVE); PROTEIN,URINE 3+ mg/dl (NEGATIVE); UGLUCOSE NEGATIVE (NEGATIVE); UROBILINOGEN,URINE 0.2 EU/dL (0.2)
[2023-07-02 13:37] LABS: APPEARANCE,URINE CLOUDY (CLEAR); BLOOD, URINE 3+ Ery/uL (NEGATIVE); LEUKOCYTE ESTERASE ,URINE 2+ (NEGATIVE); NITRITE, URINE NEGATIVE (NEGATIVE)
[2023-07-02 13:40] LABS: ADD URINE CULTURE YES; BACTERIA,URINE Many /HPF (None Seen); RBC,URINE 81-100 /HPF (0-2); SQUAMOUS EPITHELIAL CELL,UR Moderate /HPF (None Seen); URINE AMORPHOUS PHOSPHATES Moderate /HPF (None Seen); WBC,URINE 51-80 /HPF (0-3)
[2023-07-02 14:05] LABS: ANISOCYTOSIS 2+; BAND % (MANUAL) 3 % (0.0-5.0); EOSINOPHILS % (MANUAL) 4 % (0-4); HYPOCHROMASIA 1+; LYMPHOCYTES % (MANUAL) 8 % (16-48); MONOCYTES % (MANUAL) 3 % (0-11.0); NEUTROPHILS % (MANUAL) 82 (42-76); OVALOCYTES 1+; PLATELET ESTIMATE ADEQUATE
[2023-07-02] MEDS ORDERED: IV NS 0.9% 1,000 ML IV ONE (15:00)
[2023-07-02] MEDS ORDERED: HYDROCORTISONE SOD SUCCINATE 100 MG/2 ML VIAL ONE ×2 (15:25→15:26)
[2023-07-02] MEDS ORDERED: HYDROCORTISONE SOD SUCCINATE 100 MG/2 ML VIAL IV ONE (15:30)
[2023-07-02] MEDS ORDERED: IV NS 0.9% 500 ML IV ONE (16:00)
[2023-07-02] MEDS: NOREPINEPHRINE 8 MG in IV NS 0.9% 242 ML IV PRN ×3 (16:10→18:18)
[2023-07-02] MEDS ORDERED: NA PHOS,M-B/NA PHOS,DI-BA 1 EA ENEMA RC PRN (16:30)
[2023-07-02] MEDS ORDERED: BISACODYL SUPP (10 MG) 10 MG/SUPP.RECT SUPP.RECT RC PRN (16:30)
[2023-07-02] MEDS ORDERED: MAGNESIUM HYDROXIDE 30 ML UDC GT PRN (16:30)
[2023-07-02] MEDS ORDERED: FAMOTIDINE (20 MG) 20 MG TABLET GT SCH (17:00)
[2023-07-02] MEDS ORDERED: Medication Not On Formulary EA (Cranberry Extract (Cranberry) 850 MG) GT SCH (17:00)
[2023-07-02] MEDS ORDERED: ALBUTEROL FS 2.5 MG/3 ML VIAL.NEB NEB PRN (17:30)
[2023-07-02] MEDS: PANTOPRAZOLE 40 MG VIAL IV SCH (17:51)
[2023-07-02] MEDS: MAGNESIUM OXIDE 400 MG TABLET GT SCH (17:51)
[2023-07-02] MEDS ORDERED: CEFEPIME 1 GM in IV D5W 50 ML IV ONE (18:00)
[2023-07-02] MEDS ORDERED: Medication Not On Formulary EA (Arginine/Ascorbate Sod/Vite AC (Arginaid Powder) 1 EACH) GT SCH (18:00)
[2023-07-02] MEDS: ASCORBIC ACID 500 MG TABLET GT SCH (18:18)
[2023-07-02] MEDS: VANCOMYCIN HCL 0.75 GM in IV D5W 250 ML IV SCH (19:02)
[2023-07-02] MEDS: LEVETIRACETAM SOL (5 ML) 100 MG/ML UDC GT SCH (21:17)
[2023-07-02] MEDS: CHLORHEXIDINE GLUCONATE 15 ML UDC MM SCH (21:17)
[2023-07-02] MEDS: ALBUTEROL FS 2.5 MG/3 ML VIAL.NEB NEB SCH (21:26)
[2023-07-03] VITALS (64 sets, daily range): BP systolic 80–144; BP diastolic 35–116; TEMP 96–97.5; O2SAT 96–100
[2023-07-03] MEDS: ALBUTEROL FS 2.5 MG/3 ML VIAL.NEB NEB SCH ×4 (01:11→19:32)
[2023-07-03] MEDS: VANCOMYCIN HCL 0.75 GM in IV D5W 250 ML IV SCH ×3 (02:00→17:01)
[2023-07-03 03:13] LABS: BASOPHILS % (AUTO) 0.1 % (0.0-2.0); EOSINOPHILS % (AUTO) 0.1 % (0.0-6.0); HEMATOCRIT 22 % (39-51); HEMOGLOBIN 7.1 g/dL (13.5-17.5); LYMPHOCYTES # (AUTO) 0.3 K/uL (0.8-4.8); LYMPHOCYTES % (AUTO) 2.8 % (20.0-44.0); MEAN CORPUSCULAR HEMOGLOBIN 28 PG (26.0-33.0); MEAN CORPUSCULAR HGB CONC 33 g/dl (31.0-36.0); MEAN CORPUSCULAR VOLUME 84 fL (80-96); MONOCYTES # (AUTO) 0.2 K/uL (0.1-1.30); NEUTROPHILS # (AUTO) 9.8 K/uL (1.8-8.9); PLATELET COUNT (AUTO) 165 K/uL (150-450); RED BLOOD CELL COUNT(AUTO) 2.58 MIL/uL (4.5-6.0); WHITE BLOOD COUNT (AUTO) 10.3 K/uL (4.3-11.0)
[2023-07-03 03:37] LABS: ALBUMIN 1.7 g/dL (3.4-5.0); BILIRUBIN,TOTAL 0.2 mg/dL (0.2-1.0); CALCIUM, SERUM 8.4 mg/dL (8.5-10.1); CREATININE 0.6 mg/dL (0.6-1.3); POTASSIUM 4.4 mmol/L (3.5-5.1); TOTAL PROTEIN, SERUM 6.4 g/dL (6.4-8.2)
[2023-07-03 03:42] LABS: LACTIC ACID 1.9 mmol/L (0.4-2.0)
[2023-07-03] MEDS: NOREPINEPHRINE 8 MG in IV NS 0.9% 242 ML IV PRN ×2 (07:09→20:08)
[2023-07-03] MEDS: ARGININE/GLUTAMINE/CALCIUM BMB 1 EACH POWD.PACK PEG SCH ×2 (09:00→16:57)
[2023-07-03] MEDS ORDERED: [UNRECOGNIZED DRUG - OTHER] TP SCH (09:00)
[2023-07-03] MEDS ORDERED: NORMAL SALINE TP SCH (09:00)
[2023-07-03] MEDS: ACETAMINOPHEN 650 MG/20.3 ML UDC GT SCH (09:00)
[2023-07-03] MEDS: CHLORHEXIDINE GLUCONATE 15 ML UDC MM SCH ×2 (09:19→21:01)
[2023-07-03] MEDS: PANTOPRAZOLE 40 MG VIAL IV SCH ×2 (09:19→17:01)
[2023-07-03] MEDS: LEVETIRACETAM SOL (5 ML) 100 MG/ML UDC GT SCH ×2 (09:19→21:01)
[2023-07-03] MEDS: PROSOURCE / PROSTAT (PYXIS) 30 ML UDC GT SCH (09:30)
[2023-07-03] MEDS: GLUCERNA 1.2 1,000 ML BOTTLE NG PRN (09:30)
[2023-07-03] MEDS: IV NS 0.9% 250 ML IV PRN (14:29)
[2023-07-03 15:32] LABS: HEMOGLOBIN 6.8 g/dL (13.5-17.5)
[2023-07-03] MEDS: CEFEPIME 2 GM in IV D5W 100 ML IV SCH (17:01)
[2023-07-03] MEDS: ASCORBIC ACID 500 MG TABLET GT SCH (17:01)
[2023-07-03] MEDS: MAGNESIUM OXIDE 400 MG TABLET GT SCH (17:04)
[2023-07-03] MEDS: HYDROGEL DRESSING 90 GM TUBE TP SCH (23:00)
[2023-07-03] MEDS: THERAHONEY GEL 1.5 OZ TUBE TP SCH (23:00)
[2023-07-04] VITALS (56 sets, daily range): BP systolic 92–131; BP diastolic 36–77; TEMP 96.1–98.8; O2SAT 97–100
[2023-07-04 00:09] LABS: BASOPHILS % (AUTO) 0.6 % (0.0-2.0); EOSINOPHILS # (AUTO) 0.1 K/uL (0.0-0.7); EOSINOPHILS % (AUTO) 2.3 % (0.0-6.0); HEMATOCRIT 24 % (39-51); HEMOGLOBIN 7.7 g/dL (13.5-17.5); LYMPHOCYTES # (AUTO) 0.6 K/uL (0.8-4.8); LYMPHOCYTES % (AUTO) 10.3 % (20.0-44.0); MEAN CORPUSCULAR HEMOGLOBIN 26 PG (26.0-33.0); MEAN CORPUSCULAR HGB CONC 32 g/dl (31.0-36.0); MEAN CORPUSCULAR VOLUME 82 fL (80-96); MONOCYTES # (AUTO) 0.4 K/uL (0.1-1.30); NEUTROPHILS % (AUTO) 79.8 % (43.0-81.0); PLATELET COUNT (AUTO) 146 K/uL (150-450); RED BLOOD CELL COUNT(AUTO) 2.95 MIL/uL (4.5-6.0); RED CELL DISTRIBUTION WIDTH 18.8 % (11.5-15.0); WHITE BLOOD COUNT (AUTO) 6.2 K/uL (4.3-11.0)
[2023-07-04] MEDS: ALBUTEROL FS 2.5 MG/3 ML VIAL.NEB NEB SCH ×4 (01:51→19:09)
[2023-07-04 04:00] LABS: BASOPHILS % (AUTO) 0.6 % (0.0-2.0); EOSINOPHILS # (AUTO) 0.2 K/uL (0.0-0.7); EOSINOPHILS % (AUTO) 3.1 % (0.0-6.0); HEMATOCRIT 23 % (39-51); HEMOGLOBIN 7.5 g/dL (13.5-17.5); LYMPHOCYTES # (AUTO) 0.6 K/uL (0.8-4.8); LYMPHOCYTES % (AUTO) 10.4 % (20.0-44.0); MEAN CORPUSCULAR HEMOGLOBIN 27 PG (26.0-33.0); MEAN CORPUSCULAR HGB CONC 33 g/dl (31.0-36.0); MEAN CORPUSCULAR VOLUME 82 fL (80-96); MONOCYTES # (AUTO) 0.5 K/uL (0.1-1.30); MONOCYTES % (AUTO) 8.1 % (2.0-12.0); NEUTROPHILS # (AUTO) 4.7 K/uL (1.8-8.9); NEUTROPHILS % (AUTO) 77.8 % (43.0-81.0); PLATELET COUNT (AUTO) 149 K/uL (150-450); RED BLOOD CELL COUNT(AUTO) 2.81 MIL/uL (4.5-6.0)
[2023-07-04 04:14] LABS: CREATININE 0.5 mg/dL (0.6-1.3)
[2023-07-04] MEDS: VANCOMYCIN HCL 0.75 GM in IV D5W 250 ML IV SCH ×2 (06:00→18:45)
[2023-07-04] MEDS: PROSOURCE / PROSTAT (PYXIS) 30 ML UDC GT SCH (08:57)
[2023-07-04] MEDS: ARGININE/GLUTAMINE/CALCIUM BMB 1 EACH POWD.PACK PEG SCH ×2 (08:58→18:06)
[2023-07-04] MEDS: PANTOPRAZOLE 40 MG VIAL IV SCH ×2 (08:58→18:07)
[2023-07-04] MEDS: CHLORHEXIDINE GLUCONATE 15 ML UDC MM SCH ×2 (08:58→20:49)
[2023-07-04] MEDS: ACETAMINOPHEN 650 MG/20.3 ML UDC GT SCH (08:58)
[2023-07-04] MEDS: LEVETIRACETAM SOL (5 ML) 100 MG/ML UDC GT SCH ×2 (08:58→20:49)
[2023-07-04] MEDS: THERAHONEY GEL 1.5 OZ TUBE TP SCH (08:59)
[2023-07-04] MEDS: HYDROGEL DRESSING 90 GM TUBE TP SCH (08:59)
[2023-07-04] MEDS: GLUCERNA 1.2 1,000 ML BOTTLE NG PRN (09:00)
[2023-07-04] MEDS: IV NS 0.9% 250 ML IV PRN (18:06)
[2023-07-04] MEDS: MAGNESIUM OXIDE 400 MG TABLET GT SCH (18:07)
[2023-07-04] MEDS: CEFEPIME 2 GM in IV D5W 100 ML IV SCH (18:07)
[2023-07-04] MEDS: ASCORBIC ACID 500 MG TABLET GT SCH (18:07)
[2023-07-05] VITALS (25 sets, daily range): BP systolic 105–135; BP diastolic 39–74; TEMP 97.4–98.3; O2SAT 91–100
[2023-07-05] MEDS: ALBUTEROL FS 2.5 MG/3 ML VIAL.NEB NEB SCH ×4 (00:55→20:00)
[2023-07-05 05:16] LABS: CALCIUM, SERUM 9.2 mg/dL (8.5-10.1); CREATININE 0.6 mg/dL (0.6-1.3); POTASSIUM 4.1 mmol/L (3.5-5.1)
[2023-07-05 05:29] LABS: BASOPHILS % (AUTO) 0.3 % (0.0-2.0); EOSINOPHILS # (AUTO) 0.2 K/uL (0.0-0.7); HEMATOCRIT 26 % (39-51); HEMOGLOBIN 8.5 g/dL (13.5-17.5); LYMPHOCYTES # (AUTO) 0.8 K/uL (0.8-4.8); LYMPHOCYTES % (AUTO) 10.1 % (20.0-44.0); MEAN CORPUSCULAR HEMOGLOBIN 27 PG (26.0-33.0); MEAN CORPUSCULAR HGB CONC 33 g/dl (31.0-36.0); MEAN CORPUSCULAR VOLUME 82 fL (80-96); MONOCYTES # (AUTO) 0.8 K/uL (0.1-1.30); MONOCYTES % (AUTO) 9.5 % (2.0-12.0); NEUTROPHILS # (AUTO) 6.2 K/uL (1.8-8.9); NEUTROPHILS % (AUTO) 77.1 % (43.0-81.0); PLATELET COUNT (AUTO) 154 K/uL (150-450); RED BLOOD CELL COUNT(AUTO) 3.17 MIL/uL (4.5-6.0); RED CELL DISTRIBUTION WIDTH 18.2 % (11.5-15.0)
[2023-07-05] MEDS: GLUCERNA 1.2 1,000 ML BOTTLE NG PRN (05:36)
[2023-07-05 05:58] LABS: EOSINOPHILS % (MANUAL) 8 % (0-4); LYMPHOCYTES % (MANUAL) 10 % (16-48); MONOCYTES % (MANUAL) 3 % (0-11.0); MYELOCYTES % 2 % (0-0); NEUTROPHILS % (MANUAL) 77 (42-76); PLATELET ESTIMATE ADEQUATE
[2023-07-05] MEDS: VANCOMYCIN HCL 0.75 GM in IV D5W 250 ML IV SCH ×2 (05:59→18:16)
[2023-07-05] MEDS: ACETAMINOPHEN 650 MG/20.3 ML UDC GT SCH (09:25)
[2023-07-05] MEDS: CHLORHEXIDINE GLUCONATE 15 ML UDC MM SCH ×2 (09:25→21:48)
[2023-07-05] MEDS: PANTOPRAZOLE 40 MG VIAL IV SCH ×2 (09:25→18:12)
[2023-07-05] MEDS: LEVETIRACETAM SOL (5 ML) 100 MG/ML UDC GT SCH ×2 (09:25→21:48)
[2023-07-05] MEDS: ARGININE/GLUTAMINE/CALCIUM BMB 1 EACH POWD.PACK PEG SCH ×2 (09:26→18:15)
[2023-07-05] MEDS: PROSOURCE / PROSTAT (PYXIS) 30 ML UDC GT SCH (09:26)
[2023-07-05] MEDS: THERAHONEY GEL 1.5 OZ TUBE TP SCH (09:27)
[2023-07-05] MEDS: HYDROGEL DRESSING 90 GM TUBE TP SCH (09:27)
[2023-07-05] MEDS: Z GUARD REMEDY 4 OZ OINT TP SCH ×2 (10:41→22:06)
[2023-07-05] MEDS: CEFEPIME 2 GM in IV D5W 100 ML IV SCH ×2 (10:42→21:24)
[2023-07-05] MEDS: MAGNESIUM OXIDE 400 MG TABLET GT SCH (18:12)
[2023-07-05] MEDS: ASCORBIC ACID 500 MG TABLET GT SCH (18:12)
[2023-07-06] VITALS (10 sets, daily range): BP systolic 123–135; BP diastolic 58–71; TEMP 97.7–98.1; O2SAT 95–100
[2023-07-06] MEDS: GLUCERNA 1.2 1,000 ML BOTTLE NG PRN (01:16)
[2023-07-06] MEDS: ALBUTEROL FS 2.5 MG/3 ML VIAL.NEB NEB SCH ×4 (01:43→19:45)
[2023-07-06] MEDS: VANCOMYCIN HCL 0.75 GM in IV D5W 250 ML IV SCH ×2 (05:40→18:00)
[2023-07-06 07:05] LABS: CALCIUM, SERUM 9.2 mg/dL (8.5-10.1); CREATININE 0.8 mg/dL (0.6-1.3); POTASSIUM 3.9 mmol/L (3.5-5.1)
[2023-07-06 07:48] LABS: BASOPHILS % (AUTO) 0.3 % (0.0-2.0); EOSINOPHILS # (AUTO) 0.3 K/uL (0.0-0.7); EOSINOPHILS % (AUTO) 3.9 % (0.0-6.0); HEMATOCRIT 26 % (39-51); HEMOGLOBIN 8.4 g/dL (13.5-17.5); LYMPHOCYTES # (AUTO) 1.1 K/uL (0.8-4.8); MEAN CORPUSCULAR HEMOGLOBIN 27 PG (26.0-33.0); MEAN CORPUSCULAR HGB CONC 33 g/dl (31.0-36.0); MEAN CORPUSCULAR VOLUME 82 fL (80-96); MONOCYTES # (AUTO) 0.9 K/uL (0.1-1.30); MONOCYTES % (AUTO) 10.6 % (2.0-12.0); NEUTROPHILS # (AUTO) 6.1 K/uL (1.8-8.9); NEUTROPHILS % (AUTO) 72.2 % (43.0-81.0); PLATELET COUNT (AUTO) 166 K/uL (150-450); RED BLOOD CELL COUNT(AUTO) 3.15 MIL/uL (4.5-6.0); RED CELL DISTRIBUTION WIDTH 18.7 % (11.5-15.0); WHITE BLOOD COUNT (AUTO) 8.5 K/uL (4.3-11.0)
[2023-07-06] MEDS: CEFEPIME 2 GM in IV D5W 100 ML IV SCH (08:37)
[2023-07-06] MEDS: PROSOURCE / PROSTAT (PYXIS) 30 ML UDC GT SCH (08:37)
[2023-07-06] MEDS: ACETAMINOPHEN 650 MG/20.3 ML UDC GT SCH (08:38)
[2023-07-06] MEDS: PANTOPRAZOLE 40 MG VIAL IV SCH ×2 (08:38→16:39)
[2023-07-06] MEDS: CHLORHEXIDINE GLUCONATE 15 ML UDC MM SCH ×2 (08:38→20:36)
[2023-07-06] MEDS: LEVETIRACETAM SOL (5 ML) 100 MG/ML UDC GT SCH ×2 (08:38→20:36)
[2023-07-06] MEDS: Z GUARD REMEDY 4 OZ OINT TP SCH ×2 (08:39→20:49)
[2023-07-06] MEDS: THERAHONEY GEL 1.5 OZ TUBE TP SCH (08:39)
[2023-07-06] MEDS: HYDROGEL DRESSING 90 GM TUBE TP SCH (08:39)
[2023-07-06] MEDS: ARGININE/GLUTAMINE/CALCIUM BMB 1 EACH POWD.PACK PEG SCH ×2 (10:01→16:40)
[2023-07-06] MEDS: MEROPENEM 1 G in IV NS 0.9% 100 ML IV SCH ×2 (11:14→18:24)
[2023-07-06] MEDS: ASCORBIC ACID 500 MG TABLET GT SCH (17:24)
[2023-07-06] MEDS: MAGNESIUM OXIDE 400 MG TABLET GT SCH (17:37)
[2023-07-06] MEDS: VANCOMYCIN 500 MG in IV D5W 100ml IV SCH (19:06)
[2023-07-07] VITALS (18 sets, daily range): BP systolic 86–112; BP diastolic 40–61; TEMP 94.1–98.4; O2SAT 96–100
[2023-07-07] MEDS: ALBUTEROL FS 2.5 MG/3 ML VIAL.NEB NEB SCH ×4 (01:57→19:45)
[2023-07-07] MEDS: MEROPENEM 1 G in IV NS 0.9% 100 ML IV SCH ×3 (02:27→20:37)
[2023-07-07 06:23] LABS: BASOPHILS % (AUTO) 0.3 % (0.0-2.0); EOSINOPHILS # (AUTO) 0.3 K/uL (0.0-0.7); EOSINOPHILS % (AUTO) 4.2 % (0.0-6.0); HEMATOCRIT 25 % (39-51); HEMOGLOBIN 8.1 g/dL (13.5-17.5); LYMPHOCYTES # (AUTO) 0.8 K/uL (0.8-4.8); MEAN CORPUSCULAR HEMOGLOBIN 27 PG (26.0-33.0); MEAN CORPUSCULAR HGB CONC 32 g/dl (31.0-36.0); MEAN CORPUSCULAR VOLUME 83 fL (80-96); MONOCYTES # (AUTO) 0.8 K/uL (0.1-1.30); MONOCYTES % (AUTO) 10.1 % (2.0-12.0); NEUTROPHILS # (AUTO) 6.4 K/uL (1.8-8.9); NEUTROPHILS % (AUTO) 76.4 % (43.0-81.0); PLATELET COUNT (AUTO) 161 K/uL (150-450); RED BLOOD CELL COUNT(AUTO) 3.02 MIL/uL (4.5-6.0); RED CELL DISTRIBUTION WIDTH 18.6 % (11.5-15.0); WHITE BLOOD COUNT (AUTO) 8.3 K/uL (4.3-11.0)
[2023-07-07 06:32] LABS: CALCIUM, SERUM 9.1 mg/dL (8.5-10.1); CREATININE 0.8 mg/dL (0.6-1.3); POTASSIUM 3.8 mmol/L (3.5-5.1)
[2023-07-07] MEDS: VANCOMYCIN 500 MG in IV D5W 100ml IV SCH ×2 (06:56→19:40)
[2023-07-07] MEDS: PROSOURCE / PROSTAT (PYXIS) 30 ML UDC GT SCH (08:00)
[2023-07-07] MEDS: CHLORHEXIDINE GLUCONATE 15 ML UDC MM SCH ×2 (08:30→21:24)
[2023-07-07] MEDS: ACETAMINOPHEN 650 MG/20.3 ML UDC GT SCH (08:31)
[2023-07-07] MEDS: PANTOPRAZOLE 40 MG VIAL IV SCH ×2 (08:31→17:14)
[2023-07-07] MEDS: LEVETIRACETAM SOL (5 ML) 100 MG/ML UDC GT SCH ×2 (08:31→21:24)
[2023-07-07] MEDS: ARGININE/GLUTAMINE/CALCIUM BMB 1 EACH POWD.PACK PEG SCH ×2 (08:32→17:14)
[2023-07-07] MEDS: HYDROGEL DRESSING 90 GM TUBE TP SCH (08:33)
[2023-07-07] MEDS: Z GUARD REMEDY 4 OZ OINT TP SCH ×2 (08:33→21:24)
[2023-07-07] MEDS: THERAHONEY GEL 1.5 OZ TUBE TP SCH (08:34)
[2023-07-07] MEDS ORDERED: MIDAZOLAM HCL 2 MG/2ML VIAL ONE (12:37)
[2023-07-07] MEDS ORDERED: FENTANYL PF 100MCG/2ML AMPUL ONE (12:37)
[2023-07-07] MEDS ORDERED: LIDOCAINE HCL/MPF 1% 30 ML VIAL IJ ONE (12:55)
[2023-07-07] MEDS ORDERED: BUPIVACAINE 0.5 % PF 150 MG/30 ML VIAL ONE (12:55)
[2023-07-07] MEDS ORDERED: ANESTHESIA TRAY IN PYXIS 1 EA TRAY MC ONE (13:50)
[2023-07-07] MEDS ORDERED: FLUMAZENIL 0.5 MG VIAL ONE (14:05)
[2023-07-07] MEDS: MAGNESIUM OXIDE 400 MG TABLET GT SCH (17:14)
[2023-07-07] MEDS: ASCORBIC ACID 500 MG TABLET GT SCH (17:14)
[2023-07-07] MEDS: GLUCERNA 1.2 1,000 ML BOTTLE NG PRN (17:19)
[2023-07-08] VITALS (11 sets, daily range): BP systolic 110–115; BP diastolic 49–52; TEMP 98–99.6; O2SAT 97–100
[2023-07-08] MEDS: ALBUTEROL FS 2.5 MG/3 ML VIAL.NEB NEB SCH ×4 (01:10→20:17)
[2023-07-08] MEDS: MEROPENEM 1 G in IV NS 0.9% 100 ML IV SCH ×3 (05:01→20:56)
[2023-07-08] MEDS: VANCOMYCIN 500 MG in IV D5W 100ml IV SCH ×2 (06:22→18:15)
[2023-07-08 06:47] LABS: BASOPHILS % (AUTO) 0.3 % (0.0-2.0); EOSINOPHILS # (AUTO) 0.2 K/uL (0.0-0.7); EOSINOPHILS % (AUTO) 2.6 % (0.0-6.0); HEMATOCRIT 24 % (39-51); HEMOGLOBIN 7.7 g/dL (13.5-17.5); LYMPHOCYTES # (AUTO) 0.7 K/uL (0.8-4.8); LYMPHOCYTES % (AUTO) 7.3 % (20.0-44.0); MEAN CORPUSCULAR HEMOGLOBIN 27 PG (26.0-33.0); MEAN CORPUSCULAR HGB CONC 32 g/dl (31.0-36.0); MEAN CORPUSCULAR VOLUME 83 fL (80-96); MONOCYTES # (AUTO) 0.8 K/uL (0.1-1.30); MONOCYTES % (AUTO) 8.7 % (2.0-12.0); NEUTROPHILS # (AUTO) 7.4 K/uL (1.8-8.9); NEUTROPHILS % (AUTO) 81.1 % (43.0-81.0); PLATELET COUNT (AUTO) 179 K/uL (150-450); RED BLOOD CELL COUNT(AUTO) 2.87 MIL/uL (4.5-6.0); RED CELL DISTRIBUTION WIDTH 18.3 % (11.5-15.0); WHITE BLOOD COUNT (AUTO) 9.1 K/uL (4.3-11.0)
[2023-07-08 07:03] LABS: CALCIUM, SERUM 8.8 mg/dL (8.5-10.1); CREATININE 0.8 mg/dL (0.6-1.3)
[2023-07-08] MEDS: ACETAMINOPHEN 650 MG/20.3 ML UDC GT SCH (08:30)
[2023-07-08] MEDS: CHLORHEXIDINE GLUCONATE 15 ML UDC MM SCH ×2 (08:30→20:57)
[2023-07-08] MEDS: PANTOPRAZOLE 40 MG VIAL IV SCH ×2 (08:30→17:00)
[2023-07-08] MEDS: LEVETIRACETAM SOL (5 ML) 100 MG/ML UDC GT SCH ×2 (08:30→20:57)
[2023-07-08] MEDS: PROSOURCE / PROSTAT (PYXIS) 30 ML UDC GT SCH (08:31)
[2023-07-08] MEDS: Z GUARD REMEDY 4 OZ OINT TP SCH ×2 (08:31→20:59)
[2023-07-08] MEDS: ARGININE/GLUTAMINE/CALCIUM BMB 1 EACH POWD.PACK PEG SCH ×2 (08:31→17:00)
[2023-07-08] MEDS: HYDROGEL DRESSING 90 GM TUBE TP SCH (08:32)
[2023-07-08] MEDS: THERAHONEY GEL 1.5 OZ TUBE TP SCH (08:32)
[2023-07-08] MEDS: GLUCERNA 1.2 1,000 ML BOTTLE NG PRN (13:57)
[2023-07-08] MEDS: MAGNESIUM OXIDE 400 MG TABLET GT SCH (17:00)
[2023-07-08] MEDS: ASCORBIC ACID 500 MG TABLET GT SCH (17:00)
[2023-07-09] VITALS (11 sets, daily range): BP systolic 107–121; BP diastolic 53–62; TEMP 97.6–98.2; O2SAT 92–100
[2023-07-09] MEDS: ALBUTEROL FS 2.5 MG/3 ML VIAL.NEB NEB SCH ×4 (01:18→20:08)
[2023-07-09] MEDS: MEROPENEM 1 G in IV NS 0.9% 100 ML IV SCH ×3 (04:48→21:49)
[2023-07-09 06:48] LABS: CALCIUM, SERUM 9.1 mg/dL (8.5-10.1); CREATININE 0.8 mg/dL (0.6-1.3); POTASSIUM 3.7 mmol/L (3.5-5.1)
[2023-07-09] MEDS: VANCOMYCIN 500 MG in IV D5W 100ml IV SCH ×2 (08:18→18:52)
[2023-07-09] MEDS: PROSOURCE / PROSTAT (PYXIS) 30 ML UDC GT SCH (08:18)
[2023-07-09] MEDS: LEVETIRACETAM SOL (5 ML) 100 MG/ML UDC GT SCH ×2 (09:16→21:49)
[2023-07-09] MEDS: ACETAMINOPHEN 650 MG/20.3 ML UDC GT SCH (09:16)
[2023-07-09] MEDS: PANTOPRAZOLE 40 MG VIAL IV SCH ×2 (09:16→16:25)
[2023-07-09] MEDS: CHLORHEXIDINE GLUCONATE 15 ML UDC MM SCH ×2 (09:16→21:49)
[2023-07-09] MEDS: ARGININE/GLUTAMINE/CALCIUM BMB 1 EACH POWD.PACK PEG SCH ×2 (09:18→16:25)
[2023-07-09] MEDS: Z GUARD REMEDY 4 OZ OINT TP SCH ×2 (09:20→21:49)
[2023-07-09] MEDS: THERAHONEY GEL 1.5 OZ TUBE TP SCH (09:20)
[2023-07-09] MEDS: HYDROGEL DRESSING 90 GM TUBE TP SCH (09:21)
[2023-07-09] MEDS: GLUCERNA 1.2 1,000 ML BOTTLE NG PRN (10:52)
[2023-07-09] MEDS: MAGNESIUM OXIDE 400 MG TABLET GT SCH (17:24)
[2023-07-09] MEDS: ASCORBIC ACID 500 MG TABLET GT SCH (17:24)
[2023-07-10] VITALS (27 sets, daily range): BP systolic 90–123; BP diastolic 42–71; TEMP 98.3–100.2; O2SAT 95–100
[2023-07-10] MEDS: ALBUTEROL FS 2.5 MG/3 ML VIAL.NEB NEB SCH ×4 (01:58→19:47)
[2023-07-10] MEDS: GLUCERNA 1.2 1,000 ML BOTTLE NG PRN ×2 (03:41→18:30)
[2023-07-10] MEDS: MEROPENEM 1 G in IV NS 0.9% 100 ML IV SCH ×3 (05:29→21:15)
[2023-07-10 06:26] LABS: BASOPHILS % (AUTO) 0.4 % (0.0-2.0); EOSINOPHILS # (AUTO) 0.2 K/uL (0.0-0.7); EOSINOPHILS % (AUTO) 2.6 % (0.0-6.0); HEMATOCRIT 21 % (39-51); LYMPHOCYTES % (AUTO) 11.8 % (20.0-44.0); MEAN CORPUSCULAR HEMOGLOBIN 27 PG (26.0-33.0); MEAN CORPUSCULAR HGB CONC 32 g/dl (31.0-36.0); MEAN CORPUSCULAR VOLUME 83 fL (80-96); MONOCYTES # (AUTO) 0.8 K/uL (0.1-1.30); MONOCYTES % (AUTO) 9.3 % (2.0-12.0); NEUTROPHILS # (AUTO) 6.4 K/uL (1.8-8.9); NEUTROPHILS % (AUTO) 75.9 % (43.0-81.0); PLATELET COUNT (AUTO) 205 K/uL (150-450); RED BLOOD CELL COUNT(AUTO) 2.48 MIL/uL (4.5-6.0); RED CELL DISTRIBUTION WIDTH 18.4 % (11.5-15.0); WHITE BLOOD COUNT (AUTO) 8.4 K/uL (4.3-11.0)
[2023-07-10 06:30] LABS: CALCIUM, SERUM 9.2 mg/dL (8.5-10.1); POTASSIUM 3.9 mmol/L (3.5-5.1)
[2023-07-10 07:29] LABS: HEMOGLOBIN 6.6 g/dL (13.5-17.5)
[2023-07-10] MEDS: VANCOMYCIN 500 MG in IV D5W 100ml IV SCH ×2 (07:54→21:06)
[2023-07-10] MEDS: LEVETIRACETAM SOL (5 ML) 100 MG/ML UDC GT SCH ×2 (08:57→21:14)
[2023-07-10] MEDS: CHLORHEXIDINE GLUCONATE 15 ML UDC MM SCH ×2 (08:57→21:14)
[2023-07-10] MEDS: PANTOPRAZOLE 40 MG VIAL IV SCH ×2 (08:57→16:16)
[2023-07-10] MEDS: PROSOURCE / PROSTAT (PYXIS) 30 ML UDC GT SCH (08:57)
[2023-07-10] MEDS: ACETAMINOPHEN 650 MG/20.3 ML UDC GT SCH (08:58)
[2023-07-10] MEDS: ARGININE/GLUTAMINE/CALCIUM BMB 1 EACH POWD.PACK PEG SCH ×2 (09:00→16:16)
[2023-07-10] MEDS: HYDROGEL DRESSING 90 GM TUBE TP SCH (09:01)
[2023-07-10] MEDS: Z GUARD REMEDY 4 OZ OINT TP SCH ×2 (09:01→21:15)
[2023-07-10] MEDS: THERAHONEY GEL 1.5 OZ TUBE TP SCH (09:01)
[2023-07-10 11:39] LABS: EOSINOPHILS % (MANUAL) 2 % (0-4); LYMPHOCYTES % (MANUAL) 12 % (16-48); MONOCYTES % (MANUAL) 8 % (0-11.0); NEUTROPHILS % (MANUAL) 78 (42-76); PLATELET ESTIMATE ADEQUATE
[2023-07-10 11:40] LABS: ANISOCYTOSIS 1+
[2023-07-10] MEDS: ACETAMINOPHEN ES 500 MG TABLET GT PRN (16:16)
[2023-07-10] MEDS: ASCORBIC ACID 500 MG TABLET GT SCH (17:02)
[2023-07-10] MEDS: MAGNESIUM OXIDE 400 MG TABLET GT SCH (17:02)
[2023-07-10] MEDS: CIPROFLOXACIN HCL 500 MG TABLET PO SCH (22:10)
[2023-07-11] VITALS (11 sets, daily range): BP systolic 110–130; BP diastolic 47–74; TEMP 98.1–99.5; O2SAT 92–99
[2023-07-11] MEDS: ALBUTEROL FS 2.5 MG/3 ML VIAL.NEB NEB SCH ×4 (01:32→20:01)
[2023-07-11] MEDS: MEROPENEM 1 G in IV NS 0.9% 100 ML IV SCH ×3 (04:24→20:44)
[2023-07-11 06:48] LABS: BASOPHILS # (AUTO) 0.1 K/uL (0.0-0.2); BASOPHILS % (AUTO) 0.5 % (0.0-2.0); EOSINOPHILS # (AUTO) 0.3 K/uL (0.0-0.7); EOSINOPHILS % (AUTO) 2.8 % (0.0-6.0); HEMATOCRIT 27 % (39-51); LYMPHOCYTES # (AUTO) 1.1 K/uL (0.8-4.8); LYMPHOCYTES % (AUTO) 10.5 % (20.0-44.0); MEAN CORPUSCULAR HEMOGLOBIN 28 PG (26.0-33.0); MEAN CORPUSCULAR HGB CONC 33 g/dl (31.0-36.0); MEAN CORPUSCULAR VOLUME 84 fL (80-96); MONOCYTES # (AUTO) 0.9 K/uL (0.1-1.30); MONOCYTES % (AUTO) 8.7 % (2.0-12.0); NEUTROPHILS # (AUTO) 7.8 K/uL (1.8-8.9); NEUTROPHILS % (AUTO) 77.5 % (43.0-81.0); PLATELET COUNT (AUTO) 218 K/uL (150-450); RED BLOOD CELL COUNT(AUTO) 3.23 MIL/uL (4.5-6.0)
[2023-07-11 06:55] LABS: CALCIUM, SERUM 9.3 mg/dL (8.5-10.1); POTASSIUM 3.7 mmol/L (3.5-5.1)
[2023-07-11] MEDS: LEVETIRACETAM SOL (5 ML) 100 MG/ML UDC GT SCH ×2 (08:29→20:56)
[2023-07-11] MEDS: ACETAMINOPHEN 650 MG/20.3 ML UDC GT SCH (08:29)
[2023-07-11] MEDS: CHLORHEXIDINE GLUCONATE 15 ML UDC MM SCH ×2 (08:29→20:35)
[2023-07-11] MEDS: CIPROFLOXACIN HCL 500 MG TABLET PO SCH ×2 (08:29→20:57)
[2023-07-11] MEDS: ARGININE/GLUTAMINE/CALCIUM BMB 1 EACH POWD.PACK PEG SCH ×2 (08:29→16:24)
[2023-07-11] MEDS: PROSOURCE / PROSTAT (PYXIS) 30 ML UDC GT SCH (08:29)
[2023-07-11] MEDS: PANTOPRAZOLE 40 MG VIAL IV SCH ×2 (08:30→16:24)
[2023-07-11] MEDS: IV D5W 1,000 ML IV SCH ×2 (08:54→21:06)
[2023-07-11] MEDS: THERAHONEY GEL 1.5 OZ TUBE TP SCH (08:55)
[2023-07-11] MEDS: Z GUARD REMEDY 4 OZ OINT TP SCH ×2 (08:56→20:50)
[2023-07-11] MEDS: HYDROGEL DRESSING 90 GM TUBE TP SCH (08:58)
[2023-07-11] MEDS: GLUCERNA 1.2 1,000 ML BOTTLE NG PRN (15:24)
[2023-07-11] MEDS: MAGNESIUM OXIDE 400 MG TABLET GT SCH (17:03)
[2023-07-11] MEDS: ASCORBIC ACID 500 MG TABLET GT SCH (17:03)
[2023-07-12] VITALS (8 sets, daily range): BP systolic 110–137; BP diastolic 58–59; TEMP 99.1–100; O2SAT 95–100
[2023-07-12] MEDS: ALBUTEROL FS 2.5 MG/3 ML VIAL.NEB NEB SCH ×3 (01:30→13:30)
[2023-07-12] MEDS: MEROPENEM 1 G in IV NS 0.9% 100 ML IV SCH ×2 (04:03→13:14)
[2023-07-12 06:36] LABS: BASOPHILS # (AUTO) 0.1 K/uL (0.0-0.2); BASOPHILS % (AUTO) 0.6 % (0.0-2.0); EOSINOPHILS # (AUTO) 0.4 K/uL (0.0-0.7); EOSINOPHILS % (AUTO) 4.8 % (0.0-6.0); HEMATOCRIT 29 % (39-51); HEMOGLOBIN 9.2 g/dL (13.5-17.5); LYMPHOCYTES # (AUTO) 0.9 K/uL (0.8-4.8); LYMPHOCYTES % (AUTO) 10.1 % (20.0-44.0); MEAN CORPUSCULAR HEMOGLOBIN 27 PG (26.0-33.0); MEAN CORPUSCULAR HGB CONC 32 g/dl (31.0-36.0); MEAN CORPUSCULAR VOLUME 84 fL (80-96); MONOCYTES # (AUTO) 0.6 K/uL (0.1-1.30); MONOCYTES % (AUTO) 7.2 % (2.0-12.0); NEUTROPHILS # (AUTO) 6.5 K/uL (1.8-8.9); NEUTROPHILS % (AUTO) 77.3 % (43.0-81.0); PLATELET COUNT (AUTO) 270 K/uL (150-450); RED BLOOD CELL COUNT(AUTO) 3.47 MIL/uL (4.5-6.0); WHITE BLOOD COUNT (AUTO) 8.5 K/uL (4.3-11.0)
[2023-07-12 07:08] LABS: CALCIUM, SERUM 8.7 mg/dL (8.5-10.1); CREATININE 0.9 mg/dL (0.6-1.3); POTASSIUM 3.4 mmol/L (3.5-5.1)
[2023-07-12] MEDS ORDERED: CIPR-262 PO (07:55)
[2023-07-12] MEDS ORDERED: MERO1VIA23 IV (07:55)
[2023-07-12] MEDS ORDERED: POTASSIUM CHLORIDE 20 MEQ POWDER PACKET GT ONE (08:00)
[2023-07-12] MEDS: LEVETIRACETAM SOL (5 ML) 100 MG/ML UDC GT SCH (08:35)
[2023-07-12] MEDS: CHLORHEXIDINE GLUCONATE 15 ML UDC MM SCH (08:35)
[2023-07-12] MEDS: ACETAMINOPHEN 650 MG/20.3 ML UDC GT SCH (08:36)
[2023-07-12] MEDS: THERAHONEY GEL 1.5 OZ TUBE TP SCH (08:36)
[2023-07-12] MEDS: HYDROGEL DRESSING 90 GM TUBE TP SCH (08:36)
[2023-07-12] MEDS: PANTOPRAZOLE 40 MG VIAL IV SCH (08:36)
[2023-07-12] MEDS: Z GUARD REMEDY 4 OZ OINT TP SCH (08:36)
[2023-07-12] MEDS: ARGININE/GLUTAMINE/CALCIUM BMB 1 EACH POWD.PACK PEG SCH ×2 (08:37→17:25)
[2023-07-12] MEDS: PROSOURCE / PROSTAT (PYXIS) 30 ML UDC GT SCH (08:38)
[2023-07-12] MEDS: CIPROFLOXACIN HCL 500 MG TABLET PO SCH (08:41)
[2023-07-12] MEDS: IV D5W 1,000 ML IV SCH (10:53)
[2023-07-12] MEDS: GLUCERNA 1.2 1,000 ML BOTTLE NG PRN (10:56)
[2023-07-12 15:20] LABS: CALCIUM, SERUM 8.9 mg/dL (8.5-10.1); CREATININE 0.9 mg/dL (0.6-1.3)
[2023-07-12] MEDS: ACETAMINOPHEN ES 500 MG TABLET GT PRN (15:47)
[2023-07-12] MEDS ORDERED: PANTOPRAZOLE 40 MG/PACK PACK GT SCH (17:00)
[2023-07-12] MEDS: MAGNESIUM OXIDE 400 MG TABLET GT SCH (17:25)
[2023-07-12] MEDS: ASCORBIC ACID 500 MG TABLET GT SCH (17:25)
== END 2023-07-12 18:46 | DRG 853 ==
LOC: ER 10:35 → ICU 17:15 → MED 07-05 14:30
PROVIDERS: ADMIT Internal Medicine; ATTEND Internal Medicine
PROC: 30233N1 Transfusion of Nonautologous Red Blood Cells into Peripheral Vein, Percutaneous Approach (ICD-10-PCS; 2023-07-04)
PROC: 0KBV0ZZ Excision of Right Foot Muscle, Open Approach (ICD-10-PCS; principal; 2023-07-07)
PROC: 0KBP0ZZ Excision of Left Hip Muscle, Open Approach (ICD-10-PCS; 2023-07-09)
PROC: 0KBN0ZZ Excision of Right Hip Muscle, Open Approach (ICD-10-PCS; 2023-07-09)
DX: A41.9 Sepsis, unspecified organism (principal); E43 Unspecified severe protein-calorie malnutrition; R65.21 Severe sepsis with septic shock; L89.154 Pressure ulcer of sacral region, stage 4; R53.2 Functional quadriplegia; R57.1 Hypovolemic shock; J96.10 Chronic respiratory failure, unspecified whether with hypoxia or hypercapnia; L03.115 Cellulitis of right lower limb; N39.0 Urinary tract infection, site not specified; I69.351 Hemiplegia and hemiparesis following cerebral infarction affecting right dominant side; M86.8X7 Other osteomyelitis, ankle and foot; L02.611 Cutaneous abscess of right foot; R47.01 Aphasia; E87.0 Hyperosmolality and hypernatremia; K92.2 Gastrointestinal hemorrhage, unspecified; E86.1 Hypovolemia; I48.0 Paroxysmal atrial fibrillation; L97.519 Non-pressure chronic ulcer of other part of right foot with unspecified severity; Z20.822 Contact with and (suspected) exposure to COVID-19; E11.621 Type 2 diabetes mellitus with foot ulcer; E11.69 Type 2 diabetes mellitus with other specified complication; E11.51 Type 2 diabetes mellitus with diabetic peripheral angiopathy without gangrene; M24.561 Contracture, right knee; M24.562 Contracture, left knee; R13.10 Dysphagia, unspecified; B96.1 Klebsiella pneumoniae [K. pneumoniae] as the cause of diseases classified elsewhere; D63.8 Anemia in other chronic diseases classified elsewhere; Z79.899 Other long term (current) drug therapy; Z74.01 Bed confinement status; Z93.0 Tracheostomy status; Z93.1 Gastrostomy status; E78.5 Hyperlipidemia, unspecified; R56.9 Unspecified convulsions; I11.0 Hypertensive heart disease with heart failure; I50.9 Heart failure, unspecified; I95.89 Other hypotension; K21.9 Gastro-esophageal reflux disease without esophagitis; M62.50 Muscle wasting and atrophy, not elsewhere classified, unspecified site; Z79.4 Long term (current) use of insulin; Z79.51 Long term (current) use of inhaled steroids; Z79.82 Long term (current) use of aspirin; Z79.01 Long term (current) use of anticoagulants; L89.216 Pressure-induced deep tissue damage of right hip; S41.112A Laceration without foreign body of left upper arm, initial encounter; X58.XXXA Exposure to other specified factors, initial encounter; Y92.9 Unspecified place or not applicable; I70.25 Atherosclerosis of native arteries of other extremities with ulceration; B96.4 Proteus (mirabilis) (morganii) as the cause of diseases classified elsewhere; Z89.421 Acquired absence of other right toe(s)
CPT/HCPCS: 31720; 36415; 71045-TC; 73630-TC; 80048-TC; 80053-TC; 80076-TC; 80202-TC; 81001; 82962-TC; 83605-TC; 83735-TC; 84484-TC; 85025-TC; 85027-TC; 85652-TC; 85730-TC; 86140-TC; 86850-TC; 87040-TC; 87086-TC; 94762-TC; 94799-TC; A4217; A4223; A4623; A6209; A6248; A6253; A6403; A7526; C9113; G0378; J0692; J0696; J1720; J1953; J2185; J2250; J2370; J3010; J3370; J3490; J7030; J7040; J7042; J7050; J7060; J7070; P9016

== ENCOUNTER 2023-09-10 11:30 | Inpatient (IN) | payer MEDICARE, MEDICAID ==
[~2023-09-10] VITALS: Ht 172.7 cm; Wt 51.7 kg
[~2023-09-10 11:30] MED LIST changes: +ACET-2605 GT; -AMIN30LI2 GT; +INSU100I47 SQ; -INSU100V11 SQ; +MERO1VIA23 IV; -MULT9LIQ6 GT; +NORM210S TP; +NUT.237L30 GT; -NUT.250L18 GT; -SULF1TAB48 PO
[2023-09-10] MEDS ORDERED: IV NS 0.9% 1,000 ML BAG IV ONE (12:30)
[2023-09-10] MEDS ORDERED: XEROFORM TD (12:35)
[2023-09-10] MEDS ORDERED: ISOS30TA9 GT (12:35)
[2023-09-10] MEDS ORDERED: PETR113O TP (12:35)
[2023-09-10] MEDS ORDERED: CALC1TAB30 GT (12:35)
[2023-09-10] MEDS ORDERED: ALBU2.5V38 IH ×2 (12:35)
[2023-09-10] MEDS ORDERED: SODI480S2 TOP (12:35)
[2023-09-10] MEDS ORDERED: COLL30OI TP (12:35)
[2023-09-10] MEDS ORDERED: ACET650S26 GT (12:35)
[2023-09-10] MEDS ORDERED: NUT.250L18 GT (12:35)
[2023-09-10 12:48] LABS: EOSINOPHILS # (AUTO) 0.3 K/uL (0.0-0.7); LYMPHOCYTES # (AUTO) 0.7 K/uL (0.8-4.8)
[2023-09-10 12:53] LABS: BASOPHILS % (AUTO) 0.4 % (0.0-2.0); EOSINOPHILS % (AUTO) 2.9 % (0.0-6.0); HEMATOCRIT 23 % (39-51); MEAN CORPUSCULAR HEMOGLOBIN 22 PG (26.0-33.0); MEAN CORPUSCULAR HGB CONC 29 g/dl (31.0-36.0); MEAN CORPUSCULAR VOLUME 75 fL (80-96); MONOCYTES # (AUTO) 0.6 K/uL (0.1-1.30); NEUTROPHILS # (AUTO) 8.7 K/uL (1.8-8.9); NEUTROPHILS % (AUTO) 83.7 % (43.0-81.0); PLATELET COUNT (AUTO) 645 K/uL (150-450); RED BLOOD CELL COUNT(AUTO) 3.09 MIL/uL (4.5-6.0); RED CELL DISTRIBUTION WIDTH 20.5 % (11.5-15.0); WHITE BLOOD COUNT (AUTO) 10.4 K/uL (4.3-11.0)
[2023-09-10 12:55] LABS: HEMOGLOBIN 6.8 g/dL (13.5-17.5)
[2023-09-10 12:57] LABS: CALCIUM, SERUM 9.4 mg/dL (8.5-10.1); CREATININE 0.9 mg/dL (0.6-1.3); POTASSIUM 4.2 mmol/L (3.5-5.1)
[2023-09-10 13:02] LABS: INR 1.31 (0.91-1.10); PARTIAL THROMBOPLASTIN TIME 43.9 SEC (24.3-34.3); PROTHROMBIN TIME 13.6 SECS (9.2-11.1)
[2023-09-10 14:21] LABS: BAND % (MANUAL) 2 % (0.0-5.0); EOSINOPHILS % (MANUAL) 1 % (0-4); LYMPHOCYTES % (MANUAL) 8 % (16-48); MONOCYTES % (MANUAL) 7 % (0-11.0); NEUTROPHILS % (MANUAL) 82 (42-76)
[2023-09-10 14:22] LABS: ANISOCYTOSIS 1+; PLATELET ESTIMATE INCREASED
[2023-09-10 14:23] LABS: OVALOCYTES 1+; TARGET CELLS 1+
[2023-09-10] MEDS ORDERED: NA PHOS,M-B/NA PHOS,DI-BA 1 EA ENEMA RC PRN (18:00)
[2023-09-10] MEDS ORDERED: BISACODYL SUPP (10 MG) 10 MG/SUPP.RECT SUPP.RECT RC PRN (18:00)
[2023-09-10] MEDS ORDERED: MAGNESIUM HYDROXIDE 30 ML UDC GT PRN (18:00)
[2023-09-10] MEDS ORDERED: ALBUTEROL FS 2.5 MG/3 ML VIAL.NEB IH PRN (18:00)
[2023-09-10] MEDS: ASPIRIN 81 MG TAB.CHEW GT SCH (18:30)
[2023-09-10] MEDS: ASCORBIC ACID 500 MG TABLET GT SCH (18:30)
[2023-09-10] MEDS ORDERED: GLUCERNA 1.2 1,000 ML BOTTLE NG PRN (18:30)
[2023-09-10] MEDS ORDERED: DEXTROSE 50%-WATER 50 ML DISP.SYRIN IV PRN (18:30)
[2023-09-10 20:00] VITALS: BP 108/63; TEMP 97.2; O2SAT 98
[2023-09-10] MEDS: CEFEPIME 1 GM in IV D5W 50 ML IV SCH (20:15)
[2023-09-10] MEDS ORDERED: METOPROLOL TARTRATE 25 MG TABLET GT SCH (21:00)
[2023-09-10] MEDS: hydrALAZINE HCL 25 MG TABLET GT SCH (21:00)
[2023-09-10] MEDS: LEVETIRACETAM SOL (5 ML) 100 MG/ML UDC GT SCH (21:44)
[2023-09-10] MEDS: VANCOMYCIN 0.75 GM in IV D5W 250 ML IV SCH (21:45)
[2023-09-10] MEDS: CHLORHEXIDINE GLUCONATE 15 ML UDC MM SCH (21:46)
[2023-09-11] VITALS (15 sets, daily range): BP systolic 106–145; BP diastolic 49–70; TEMP 97.2–100.8; O2SAT 96–100
[2023-09-11] MEDS: BLOOD SUGAR DIAGNOSTIC 1 EACH STRIP IN SCH ×4 (00:24→17:11)
[2023-09-11] MEDS: INSULIN REGULAR, HUMAN 100 UNIT/ML 3 ML VIAL SQ PRN ×4 (00:26→17:13)
[2023-09-11] MEDS: ACETAMINOPHEN 650 MG/20.3 ML UDC GT PRN ×2 (04:59→21:57)
[2023-09-11] MEDS: hydrALAZINE HCL 25 MG TABLET GT SCH ×3 (05:00→21:18)
[2023-09-11 07:27] LABS: BASOPHILS % (AUTO) 0.4 % (0.0-2.0); EOSINOPHILS # (AUTO) 0.4 K/uL (0.0-0.7); EOSINOPHILS % (AUTO) 4.7 % (0.0-6.0); HEMATOCRIT 24 % (39-51); HEMOGLOBIN 7.5 g/dL (13.5-17.5); LYMPHOCYTES # (AUTO) 0.6 K/uL (0.8-4.8); LYMPHOCYTES % (AUTO) 7.4 % (20.0-44.0); MEAN CORPUSCULAR HEMOGLOBIN 24 PG (26.0-33.0); MEAN CORPUSCULAR HGB CONC 31 g/dl (31.0-36.0); MEAN CORPUSCULAR VOLUME 75 fL (80-96); MONOCYTES # (AUTO) 0.5 K/uL (0.1-1.30); MONOCYTES % (AUTO) 5.9 % (2.0-12.0); NEUTROPHILS # (AUTO) 6.8 K/uL (1.8-8.9); NEUTROPHILS % (AUTO) 81.6 % (43.0-81.0); PLATELET COUNT (AUTO) 558 K/uL (150-450); RED BLOOD CELL COUNT(AUTO) 3.17 MIL/uL (4.5-6.0); RED CELL DISTRIBUTION WIDTH 20.3 % (11.5-15.0); WHITE BLOOD COUNT (AUTO) 8.4 K/uL (4.3-11.0)
[2023-09-11 07:50] LABS: BILIRUBIN,TOTAL 0.2 mg/dL (0.2-1.0); CALCIUM, SERUM 9.4 mg/dL (8.5-10.1); CREATININE 0.9 mg/dL (0.6-1.3); POTASSIUM 3.8 mmol/L (3.5-5.1); TOTAL PROTEIN, SERUM 8.3 g/dL (6.4-8.2)
[2023-09-11] MEDS: CEFEPIME 1 GM in IV D5W 50 ML IV SCH ×2 (07:59→20:04)
[2023-09-11] MEDS: CALCIUM CARB 600MG /VIT D 1 EACH TABLET GT SCH (08:13)
[2023-09-11] MEDS: ISOSORBIDE DINITRATE (20MG) 20 MG TABLET GT SCH (08:13)
[2023-09-11] MEDS: FAMOTIDINE (20 MG) 20 MG TABLET GT SCH ×2 (08:14→16:06)
[2023-09-11] MEDS: CHLORHEXIDINE GLUCONATE 15 ML UDC MM SCH ×2 (08:14→21:18)
[2023-09-11] MEDS: AMLODIPINE BESYLATE 5 MG TABLET GT SCH ×2 (08:14→16:06)
[2023-09-11] MEDS: LEVETIRACETAM SOL (5 ML) 100 MG/ML UDC GT SCH ×2 (08:14→21:18)
[2023-09-11] MEDS: METOPROLOL TARTRATE 50 MG TABLET GT SCH ×2 (08:14→21:19)
[2023-09-11] MEDS: ARGININE/GLUTAMINE/CALCIUM BMB 1 EACH POWD.PACK GT SCH ×2 (08:16→16:06)
[2023-09-11 08:39] LABS: ALBUMIN 1.4 g/dL (3.4-5.0)
[2023-09-11] MEDS ORDERED: Medication Not On Formulary EA (Cranberry Extract (Cranberry) 850 MG) GT SCH (09:00)
[2023-09-11] MEDS: VANCOMYCIN 0.75 GM in IV D5W 250 ML IV SCH ×2 (09:07→21:17)
[2023-09-11] MEDS: Z GUARD REMEDY 4 OZ OINT TP SCH (09:11)
[2023-09-11] MEDS: DAKINS QUARTER STRENGTH (0.125%) 480 ML BOTTLE TOP SCH ×2 (09:11→12:51)
[2023-09-11 09:47] LABS: BAND % (MANUAL) 1 % (0.0-5.0); EOSINOPHILS % (MANUAL) 3 % (0-4); LYMPHOCYTES % (MANUAL) 6 % (16-48); MONOCYTES % (MANUAL) 10 % (0-11.0); NEUTROPHILS % (MANUAL) 80 (42-76)
[2023-09-11 09:48] LABS: ANISOCYTOSIS 1+; HYPOCHROMASIA 1+; PLATELET ESTIMATE INCREASED
[2023-09-11] MEDS: GLUCERNA 1.2 1,000 ML BOTTLE NG PRN (12:56)
[2023-09-11 16:15] LABS: APPEARANCE,URINE CLEAR (CLEAR); BILIRUBIN,URINE NEGATIVE (NEGATIVE); BLOOD, URINE NEGATIVE Ery/uL (NEGATIVE); COLOR,URINE YELLOW (YELLOW); KETONES,URINE TRACE mg/dL (NEGATIVE); LEUKOCYTE ESTERASE ,URINE TRACE (NEGATIVE); NITRITE, URINE NEGATIVE (NEGATIVE); PH,URINE 6.5 (5.0-8.0); PROTEIN,URINE NEGATIVE (NEGATIVE); UGLUCOSE NEGATIVE (NEGATIVE); UROBILINOGEN,URINE 0.2 EU/dL (0.2)
[2023-09-11 16:26] LABS: ADD URINE CULTURE NO; BACTERIA,URINE 1+ /HPF (None Seen); RBC,URINE NONE SEEN /HPF (0-2)
[2023-09-11] MEDS: ASCORBIC ACID 500 MG TABLET GT SCH (17:17)
[2023-09-11] MEDS: ASPIRIN 81 MG TAB.CHEW GT SCH (17:17)
[2023-09-12] VITALS (7 sets, daily range): BP systolic 104–127; BP diastolic 57–65; TEMP 97.5–98.6; O2SAT 97–100
[2023-09-12] MEDS: INSULIN REGULAR, HUMAN 100 UNIT/ML 3 ML VIAL SQ PRN ×3 (00:01→23:36)
[2023-09-12] MEDS: hydrALAZINE HCL 25 MG TABLET GT SCH ×3 (04:42→21:00)
[2023-09-12] MEDS: BLOOD SUGAR DIAGNOSTIC 1 EACH STRIP IN SCH ×5 (05:41→23:34)
[2023-09-12] MEDS ORDERED: IV NS 0.9% 1,000 ML IV SCH (06:00)
[2023-09-12 06:57] LABS: BASOPHILS # (AUTO) 0.1 K/uL (0.0-0.2); BASOPHILS % (AUTO) 0.6 % (0.0-2.0); EOSINOPHILS # (AUTO) 0.8 K/uL (0.0-0.7); EOSINOPHILS % (AUTO) 8.8 % (0.0-6.0); HEMATOCRIT 25 % (39-51); HEMOGLOBIN 7.9 g/dL (13.5-17.5); LYMPHOCYTES % (AUTO) 11.5 % (20.0-44.0); MEAN CORPUSCULAR HEMOGLOBIN 24 PG (26.0-33.0); MEAN CORPUSCULAR HGB CONC 31 g/dl (31.0-36.0); MEAN CORPUSCULAR VOLUME 78 fL (80-96); MONOCYTES # (AUTO) 0.8 K/uL (0.1-1.30); NEUTROPHILS # (AUTO) 6.3 K/uL (1.8-8.9); NEUTROPHILS % (AUTO) 70.1 % (43.0-81.0); PLATELET COUNT (AUTO) 543 K/uL (150-450); RED BLOOD CELL COUNT(AUTO) 3.25 MIL/uL (4.5-6.0); RED CELL DISTRIBUTION WIDTH 20.5 % (11.5-15.0)
[2023-09-12 07:11] LABS: INR 1.19 (0.91-1.10); PARTIAL THROMBOPLASTIN TIME 37.3 SEC (24.3-34.3); PROTHROMBIN TIME 12.5 SECS (9.2-11.1)
[2023-09-12 07:28] LABS: CALCIUM, SERUM 8.9 mg/dL (8.5-10.1); CREATININE 0.6 mg/dL (0.6-1.3); POTASSIUM 3.2 mmol/L (3.5-5.1)
[2023-09-12] MEDS: CALCIUM CARB 600MG /VIT D 1 EACH TABLET GT SCH (08:15)
[2023-09-12] MEDS: CHLORHEXIDINE GLUCONATE 15 ML UDC MM SCH ×2 (08:16→20:48)
[2023-09-12] MEDS: ISOSORBIDE DINITRATE (20MG) 20 MG TABLET GT SCH (08:16)
[2023-09-12] MEDS: AMLODIPINE BESYLATE 5 MG TABLET GT SCH ×2 (08:17→17:00)
[2023-09-12] MEDS: MUPIROCIN OINT 2% 22 GM TUBE NS SCH ×2 (08:17→21:18)
[2023-09-12] MEDS: FAMOTIDINE (20 MG) 20 MG TABLET GT SCH ×2 (08:17→17:55)
[2023-09-12] MEDS: METOPROLOL TARTRATE 50 MG TABLET GT SCH ×2 (08:17→21:18)
[2023-09-12] MEDS: LEVETIRACETAM SOL (5 ML) 100 MG/ML UDC GT SCH ×2 (08:17→20:48)
[2023-09-12] MEDS: CEFEPIME 1 GM in IV D5W 50 ML IV SCH ×2 (08:18→20:47)
[2023-09-12] MEDS ORDERED: ANESTHESIA TRAY IN PYXIS 1 EA TRAY MC ONE (08:20)
[2023-09-12] MEDS: ARGININE/GLUTAMINE/CALCIUM BMB 1 EACH POWD.PACK GT SCH ×2 (09:00→16:48)
[2023-09-12] MEDS ORDERED: POTASSIUM CHLORIDE 10 MEQ/50 ML PREMIXED IVPB FOR PERIPHERAL LINE IV ONE (09:00)
[2023-09-12] MEDS: POTASSIUM CL. PREMIX PERIPHER. 50 ML IV SCH ×4 (09:06→15:41)
[2023-09-12] MEDS: DAKINS QUARTER STRENGTH (0.125%) 480 ML BOTTLE TOP SCH ×2 (09:07)
[2023-09-12] MEDS: Z GUARD REMEDY 4 OZ OINT TP SCH (09:07)
[2023-09-12] MEDS: VANCOMYCIN 500 MG in IV D5W 100ml IV SCH ×2 (10:35→22:02)
[2023-09-12] MEDS ORDERED: FENTANYL PF 100MCG/2ML AMPUL ONE (11:51)
[2023-09-12] MEDS ORDERED: MIDAZOLAM HCL 2 MG/2ML VIAL ONE (11:51)
[2023-09-12] MEDS ORDERED: BUPIVACAINE 0.5 % PF 150 MG/30 ML VIAL ONE (11:54)
[2023-09-12] MEDS ORDERED: POLYMYXIN B SULFATE 500,000 UNITS ONE (12:30)
[2023-09-12] MEDS ORDERED: LIDOCAINE 1% INJ 50 ML MDV IJ ONE (12:30)
[2023-09-12] MEDS ORDERED: CELLULOSE,OXIDIZED 1 EA PACK MC ONE (13:01)
[2023-09-12] MEDS: IV NS 0.9% 1,000 ML IV PRN (16:59)
[2023-09-12] MEDS: GLUCERNA 1.2 1,000 ML BOTTLE NG PRN (17:43)
[2023-09-12] MEDS: ASCORBIC ACID 500 MG TABLET GT SCH (17:55)
[2023-09-12] MEDS: ASPIRIN 81 MG TAB.CHEW GT SCH (17:55)
[2023-09-13] VITALS (14 sets, daily range): BP systolic 98–134; BP diastolic 54–75; TEMP 98.6–100; O2SAT 96–100
[2023-09-13] MEDS: hydrALAZINE HCL 25 MG TABLET GT SCH ×3 (05:23→21:00)
[2023-09-13] MEDS: IV NS 0.9% 1,000 ML IV PRN (06:19)
[2023-09-13] MEDS: BLOOD SUGAR DIAGNOSTIC 1 EACH STRIP IN SCH ×4 (06:28→23:48)
[2023-09-13] MEDS: INSULIN REGULAR, HUMAN 100 UNIT/ML 3 ML VIAL SQ PRN ×2 (06:28→12:43)
[2023-09-13 08:06] LABS: BASOPHILS % (AUTO) 0.4 % (0.0-2.0); EOSINOPHILS # (AUTO) 0.2 K/uL (0.0-0.7); EOSINOPHILS % (AUTO) 2.4 % (0.0-6.0); HEMATOCRIT 21 % (39-51); LYMPHOCYTES # (AUTO) 0.6 K/uL (0.8-4.8); LYMPHOCYTES % (AUTO) 9.5 % (20.0-44.0); MEAN CORPUSCULAR HEMOGLOBIN 24 PG (26.0-33.0); MEAN CORPUSCULAR HGB CONC 30 g/dl (31.0-36.0); MEAN CORPUSCULAR VOLUME 79 fL (80-96); MONOCYTES # (AUTO) 0.5 K/uL (0.1-1.30); MONOCYTES % (AUTO) 7.4 % (2.0-12.0); NEUTROPHILS # (AUTO) 5.2 K/uL (1.8-8.9); NEUTROPHILS % (AUTO) 80.3 % (43.0-81.0); PLATELET COUNT (AUTO) 415 K/uL (150-450); RED BLOOD CELL COUNT(AUTO) 2.62 MIL/uL (4.5-6.0); RED CELL DISTRIBUTION WIDTH 21.6 % (11.5-15.0); WHITE BLOOD COUNT (AUTO) 6.5 K/uL (4.3-11.0)
[2023-09-13 08:23] LABS: HEMOGLOBIN 6.3 g/dL (13.5-17.5)
[2023-09-13 09:13] LABS: CREATININE 0.3 mg/dL (0.6-1.3)
[2023-09-13] MEDS: CEFEPIME 1 GM in IV D5W 50 ML IV SCH (09:17)
[2023-09-13] MEDS: ISOSORBIDE DINITRATE (20MG) 20 MG TABLET GT SCH (09:18)
[2023-09-13] MEDS: LEVETIRACETAM SOL (5 ML) 100 MG/ML UDC GT SCH ×2 (09:18→21:28)
[2023-09-13] MEDS: CHLORHEXIDINE GLUCONATE 15 ML UDC MM SCH ×2 (09:18→21:28)
[2023-09-13] MEDS: FAMOTIDINE (20 MG) 20 MG TABLET GT SCH ×2 (09:19→17:26)
[2023-09-13] MEDS: AMLODIPINE BESYLATE 5 MG TABLET GT SCH ×2 (09:19→17:00)
[2023-09-13] MEDS: CALCIUM CARB 600MG /VIT D 1 EACH TABLET GT SCH (09:20)
[2023-09-13] MEDS: METOPROLOL TARTRATE 50 MG TABLET GT SCH (09:20)
[2023-09-13] MEDS: ARGININE/GLUTAMINE/CALCIUM BMB 1 EACH POWD.PACK GT SCH ×2 (09:21→17:26)
[2023-09-13] MEDS: MUPIROCIN OINT 2% 22 GM TUBE NS SCH ×2 (09:21→23:48)
[2023-09-13] MEDS: DAKINS QUARTER STRENGTH (0.125%) 480 ML BOTTLE TOP SCH ×2 (09:23→09:24)
[2023-09-13] MEDS: Z GUARD REMEDY 4 OZ OINT TP SCH (09:24)
[2023-09-13 09:35] LABS: CALCIUM, SERUM 4.8 mg/dL (8.5-10.1); POTASSIUM 2.2 mmol/L (3.5-5.1)
[2023-09-13 10:08] LABS: ANISOCYTOSIS 2+; HYPOCHROMASIA 1+; LYMPHOCYTES % (MANUAL) 11 % (16-48); MONOCYTES % (MANUAL) 5 % (0-11.0); NEUTROPHILS % (MANUAL) 84 (42-76); PLATELET ESTIMATE ADEQUATE
[2023-09-13] MEDS: VANCOMYCIN 500 MG in IV D5W 100ml IV SCH ×2 (10:37→22:31)
[2023-09-13] MEDS: POTASSIUM CL. PREMIX PERIPHER. 50 ML IV SCH ×4 (11:20→15:28)
[2023-09-13] MEDS ORDERED: POTASSIUM CHLORIDE 20 MEQ POWDER PACKET GT ONE (12:00)
[2023-09-13] MEDS ORDERED: Calcium Gluconate 1GM/10ML 4.65 MEQ in IV NS 0.9% 100 ML IV ONE (12:00)
[2023-09-13] MEDS: ACETAMINOPHEN 650 MG/20.3 ML UDC GT PRN ×2 (16:48→17:26)
[2023-09-13] MEDS: ASPIRIN 81 MG TAB.CHEW GT SCH (17:29)
[2023-09-13] MEDS: ASCORBIC ACID 500 MG TABLET GT SCH (17:29)
[2023-09-13] MEDS: GLUCERNA 1.2 1,000 ML BOTTLE NG SCH (19:58)
[2023-09-13] MEDS: CEFEPIME 2 GM in IV D5W 100 ML IV SCH (21:58)
[2023-09-14] VITALS (17 sets, daily range): BP systolic 95–121; BP diastolic 56–86; TEMP 97–99.3; O2SAT 97–100
[2023-09-14] MEDS: METOPROLOL TARTRATE 50 MG TABLET GT SCH ×3 (01:11→21:00)
[2023-09-14] MEDS: hydrALAZINE HCL 25 MG TABLET GT SCH ×3 (04:49→21:00)
[2023-09-14] MEDS: BLOOD SUGAR DIAGNOSTIC 1 EACH STRIP IN SCH ×3 (05:17→18:00)
[2023-09-14 08:31] LABS: BASOPHILS % (AUTO) 0.4 % (0.0-2.0); EOSINOPHILS # (AUTO) 0.4 K/uL (0.0-0.7); EOSINOPHILS % (AUTO) 3.9 % (0.0-6.0); HEMATOCRIT 32 % (39-51); HEMOGLOBIN 10.4 g/dL (13.5-17.5); LYMPHOCYTES % (AUTO) 9.5 % (20.0-44.0); MEAN CORPUSCULAR HEMOGLOBIN 27 PG (26.0-33.0); MEAN CORPUSCULAR HGB CONC 32 g/dl (31.0-36.0); MEAN CORPUSCULAR VOLUME 83 fL (80-96); MONOCYTES # (AUTO) 0.4 K/uL (0.1-1.30); MONOCYTES % (AUTO) 3.9 % (2.0-12.0); NEUTROPHILS # (AUTO) 8.9 K/uL (1.8-8.9); NEUTROPHILS % (AUTO) 82.3 % (43.0-81.0); PLATELET COUNT (AUTO) 503 K/uL (150-450); RED BLOOD CELL COUNT(AUTO) 3.92 MIL/uL (4.5-6.0); RED CELL DISTRIBUTION WIDTH 21.8 % (11.5-15.0); WHITE BLOOD COUNT (AUTO) 10.9 K/uL (4.3-11.0)
[2023-09-14 08:42] LABS: CALCIUM, SERUM 8.7 mg/dL (8.5-10.1); CREATININE 0.7 mg/dL (0.6-1.3); MAGNESIUM 2.3 mg/dL (1.8-2.4); POTASSIUM 4.2 mmol/L (3.5-5.1)
[2023-09-14] MEDS: AMLODIPINE BESYLATE 5 MG TABLET GT SCH ×2 (09:00→17:59)
[2023-09-14] MEDS: ISOSORBIDE DINITRATE (20MG) 20 MG TABLET GT SCH (09:00)
[2023-09-14] MEDS: CALCIUM CARB 600MG /VIT D 1 EACH TABLET GT SCH (09:46)
[2023-09-14] MEDS: LEVETIRACETAM SOL (5 ML) 100 MG/ML UDC GT SCH ×2 (09:46→21:44)
[2023-09-14] MEDS: CHLORHEXIDINE GLUCONATE 15 ML UDC MM SCH ×2 (09:46→21:45)
[2023-09-14] MEDS: FAMOTIDINE (20 MG) 20 MG TABLET GT SCH ×2 (09:48→17:59)
[2023-09-14] MEDS: ARGININE/GLUTAMINE/CALCIUM BMB 1 EACH POWD.PACK GT SCH ×2 (09:48→17:59)
[2023-09-14] MEDS: CEFEPIME 2 GM in IV D5W 100 ML IV SCH ×2 (10:01→21:45)
[2023-09-14] MEDS: MUPIROCIN OINT 2% 22 GM TUBE NS SCH ×2 (10:19→21:45)
[2023-09-14] MEDS: DAKINS QUARTER STRENGTH (0.125%) 480 ML BOTTLE TOP SCH ×2 (10:21)
[2023-09-14] MEDS: Z GUARD REMEDY 4 OZ OINT TP PRN ×3 (10:21→10:24)
[2023-09-14] MEDS: Z GUARD REMEDY 4 OZ OINT TP SCH (10:25)
[2023-09-14] MEDS: VANCOMYCIN 500 MG in IV D5W 100ml IV SCH ×2 (11:00→22:36)
[2023-09-14] MEDS: INSULIN REGULAR, HUMAN 100 UNIT/ML 3 ML VIAL SQ PRN (12:43)
[2023-09-14] MEDS: ACETAMINOPHEN 650 MG/20.3 ML UDC GT PRN ×2 (12:52→17:36)
[2023-09-14] MEDS: ASPIRIN 81 MG TAB.CHEW GT SCH (17:59)
[2023-09-14] MEDS: ASCORBIC ACID 500 MG TABLET GT SCH (17:59)
[2023-09-14] MEDS: GLUCERNA 1.2 1,000 ML BOTTLE NG SCH (18:42)
[2023-09-15] VITALS (8 sets, daily range): BP systolic 98–112; BP diastolic 55–68; TEMP 97.7–98.6; O2SAT 96–100
[2023-09-15] MEDS: BLOOD SUGAR DIAGNOSTIC 1 EACH STRIP IN SCH ×3 (00:20→11:52)
[2023-09-15] MEDS: hydrALAZINE HCL 25 MG TABLET GT SCH ×2 (05:00→13:00)
[2023-09-15 08:18] LABS: CREATININE 0.7 mg/dL (0.6-1.3)
[2023-09-15] MEDS: LEVETIRACETAM SOL (5 ML) 100 MG/ML UDC GT SCH (08:29)
[2023-09-15] MEDS: CHLORHEXIDINE GLUCONATE 15 ML UDC MM SCH (08:29)
[2023-09-15] MEDS: ISOSORBIDE DINITRATE (20MG) 20 MG TABLET GT SCH (08:30)
[2023-09-15] MEDS: METOPROLOL TARTRATE 50 MG TABLET GT SCH (08:30)
[2023-09-15] MEDS: AMLODIPINE BESYLATE 5 MG TABLET GT SCH (08:36)
[2023-09-15] MEDS: Z GUARD REMEDY 4 OZ OINT TP SCH (08:38)
[2023-09-15] MEDS: FAMOTIDINE (20 MG) 20 MG TABLET GT SCH (08:38)
[2023-09-15] MEDS: CALCIUM CARB 600MG /VIT D 1 EACH TABLET GT SCH (08:38)
[2023-09-15] MEDS: MUPIROCIN OINT 2% 22 GM TUBE NS SCH (08:39)
[2023-09-15] MEDS: DAKINS QUARTER STRENGTH (0.125%) 480 ML BOTTLE TOP SCH ×2 (08:39)
[2023-09-15] MEDS: CEFEPIME 2 GM in IV D5W 100 ML IV SCH (08:40)
[2023-09-15] MEDS: ARGININE/GLUTAMINE/CALCIUM BMB 1 EACH POWD.PACK GT SCH (08:41)
[2023-09-15] MEDS ORDERED: LEVO500T90 PO (10:01)
[2023-09-15] MEDS ORDERED: METR500T PO (10:01)
[2023-09-15] MEDS: VANCOMYCIN 500 MG in IV D5W 100ml IV SCH (10:42)
[2023-09-15] MEDS: INSULIN REGULAR, HUMAN 100 UNIT/ML 3 ML VIAL SQ PRN (11:54)
== END 2023-09-15 13:55 | DRG 239 ==
LOC: ER 11:39 → MEDSG1 15:52 → TELE1 09-11 08:20
PROVIDERS: ADMIT Internal Medicine; ATTEND Internal Medicine
PROC: 30233N1 Transfusion of Nonautologous Red Blood Cells into Peripheral Vein, Percutaneous Approach (ICD-10-PCS; principal; 2023-09-11)
PROC: 0Y6C0Z2 Detachment at Right Upper Leg, Mid, Open Approach (ICD-10-PCS; 2023-09-12)
PROC: 05HD33Z Insertion of Infusion Device into Right Cephalic Vein, Percutaneous Approach (ICD-10-PCS; 2023-09-13)
DX: E11.52 Type 2 diabetes mellitus with diabetic peripheral angiopathy with gangrene (principal); E43 Unspecified severe protein-calorie malnutrition; L89.154 Pressure ulcer of sacral region, stage 4; R53.2 Functional quadriplegia; J69.0 Pneumonitis due to inhalation of food and vomit; J96.10 Chronic respiratory failure, unspecified whether with hypoxia or hypercapnia; I69.351 Hemiplegia and hemiparesis following cerebral infarction affecting right dominant side; Z68.1 Body mass index [BMI] 19.9 or less, adult; M00.9 Pyogenic arthritis, unspecified; I77.2 Rupture of artery; E11.621 Type 2 diabetes mellitus with foot ulcer; D64.9 Anemia, unspecified; L97.529 Non-pressure chronic ulcer of other part of left foot with unspecified severity; Z93.0 Tracheostomy status; E78.5 Hyperlipidemia, unspecified; I11.0 Hypertensive heart disease with heart failure; I50.9 Heart failure, unspecified; I48.0 Paroxysmal atrial fibrillation; E83.51 Hypocalcemia; E87.6 Hypokalemia; M24.561 Contracture, right knee; M24.562 Contracture, left knee; R13.10 Dysphagia, unspecified; Z79.01 Long term (current) use of anticoagulants; Z79.82 Long term (current) use of aspirin; Z79.899 Other long term (current) drug therapy; Z93.1 Gastrostomy status; Z74.01 Bed confinement status; K21.9 Gastro-esophageal reflux disease without esophagitis
CPT/HCPCS: 31720; 36415; 71045-TC; 72192-TC; 80048-TC; 80053-TC; 80202-TC; 81001; 82962-TC; 83735-TC; 85025-TC; 85610-TC; 85730-TC; 86850-TC; 87081-TC; 94640-TC; 94799-TC; A4223; A4349; A4623; A6253; A6403; A7526; G0378; J0610; J0690; J0692; J1815; J1953; J2250; J2704; J3010; J3370; J3480; J3490; J7030; J7040; J7050; J7060; P9016

== ENCOUNTER 2023-10-21 00:41 | Inpatient (IN) | payer MEDICARE, MEDICAID ==
[~2023-10-21] VITALS: Ht 165.1 cm; Wt 45.4 kg
[2023-10-21] VITALS (18 sets, daily range): BP systolic 90–100; BP diastolic 38–57; TEMP 97.7–98.6; O2SAT 98–100
[~2023-10-21 00:41] MED LIST changes: -ALBU18HF2 IH; +ALBU2.5V38 IH; +CALC1TAB30 GT; -CIPR-262 PO; +COLL30OI TP; -ISOS30TA86 GT; +ISOS30TA9 GT; +LEVO500T90 PO; -MERO1VIA23 IV; +METR500T PO; -NORM210S TP; -NUT.237L30 GT; +NUT.250L18 GT; +PETR113O TP; +SODI480S2 TOP; +XEROFORM TD
[2023-10-21] MEDS ORDERED: CEFEPIME 1 GM in IV D5W 50 ML IV ONE (01:00)
[2023-10-21] MEDS ORDERED: VANCOMYCIN 1 GM in IV D5W 250 ML IV ONE (01:00)
[2023-10-21] MEDS ORDERED: IV NS 0.9% 1,000 ML BAG IV ONE (01:00)
[2023-10-21] MEDS ORDERED: CEFEPIME 1 GM VIAL ONE (01:55)
[2023-10-21 02:10] LABS: BASOPHILS % (AUTO) 0.3 % (0.0-2.0); EOSINOPHILS # (AUTO) 0.1 K/uL (0.0-0.7); EOSINOPHILS % (AUTO) 0.6 % (0.0-6.0); LYMPHOCYTES # (AUTO) 1.3 K/uL (0.8-4.8); LYMPHOCYTES % (AUTO) 11.9 % (20.0-44.0); MEAN CORPUSCULAR HEMOGLOBIN 26 PG (26.0-33.0); MEAN CORPUSCULAR HGB CONC 30 g/dl (31.0-36.0); MEAN CORPUSCULAR VOLUME 86 fL (80-96); MONOCYTES # (AUTO) 0.4 K/uL (0.1-1.30); MONOCYTES % (AUTO) 3.7 % (2.0-12.0); NEUTROPHILS % (AUTO) 83.5 % (43.0-81.0); PLATELET COUNT (AUTO) 486 K/uL (150-450); RED BLOOD CELL COUNT(AUTO) 2.38 MIL/uL (4.5-6.0); RED CELL DISTRIBUTION WIDTH 24.7 % (11.5-15.0); WHITE BLOOD COUNT (AUTO) 10.8 K/uL (4.3-11.0)
[2023-10-21 02:13] LABS: HEMATOCRIT 20 % (39-51); HEMOGLOBIN 6.1 g/dL (13.5-17.5)
[2023-10-21 02:20] LABS: CALCIUM, SERUM 9.6 mg/dL (8.5-10.1); CARBON DIOXIDE 30 mmol/L (21-32); CHLORIDE 110 mmol/L (98-107); CREATININE 1.5 mg/dL (0.6-1.3); GLUCOSE 187 mg/dL (74-106); POTASSIUM 5.1 mmol/L (3.5-5.1); SODIUM SERUM 147 mmol/L (136-145)
[2023-10-21 02:21] LABS: INR 1.3 (0.91-1.10); PARTIAL THROMBOPLASTIN TIME 35.9 SEC (24.3-34.3); PROTHROMBIN TIME 13.5 SECS (9.2-11.1)
[2023-10-21 02:26] LABS: ALANINE AMINOTRANSFERASE 12 U/L (12-78); ALBUMIN 1.5 g/dL (3.4-5.0); ALKALINE PHOSPHATASE 89 U/L (46-116); ASPARTATE AMINOTRANSFERASE 21 U/L (15-37); BILIRUBIN,DIRECT 0.1 mg/dL (0.0-0.2); BILIRUBIN,TOTAL 0.3 mg/dL (0.2-1.0); TOTAL PROTEIN, SERUM 8.1 g/dL (6.4-8.2)
[2023-10-21 02:27] LABS: UREA NITROGEN, BLOOD 92 mg/dL (7-18)
[2023-10-21] MEDS ORDERED: VANCOMYCIN 1 GM /D5W 250 ML PB IV ONE (02:48)
[2023-10-21 02:55] LABS: LACTIC ACID 2.5 mmol/L (0.4-2.0)
[2023-10-21 03:02] LABS: APPEARANCE,URINE TURBID (CLEAR); BILIRUBIN,URINE NEGATIVE (NEGATIVE); BLOOD, URINE 2+ Ery/uL (NEGATIVE); COLOR,URINE DARK YELLOW (YELLOW); KETONES,URINE NEGATIVE (NEGATIVE); LEUKOCYTE ESTERASE ,URINE 3+ (NEGATIVE); NITRITE, URINE NEGATIVE (NEGATIVE); PROTEIN,URINE 1+ mg/dl (NEGATIVE); UGLUCOSE NEGATIVE (NEGATIVE)
[2023-10-21 03:07] LABS: ADD URINE CULTURE YES; BACTERIA,URINE Moderate /HPF (None Seen); SQUAMOUS EPITHELIAL CELL,UR Rare /HPF (None Seen)
[2023-10-21 04:21] LABS: IRON, SERUM 13 ug/dl (50-175); TOTAL IRON BINDING CAPACITY 178 ug/dl (250-450)
[2023-10-21 05:05] LABS: BASOPHILS % (MANUAL) 0 % (0.0-2.0); EOSINOPHILS % (MANUAL) 0 % (0-4); LYMPHOCYTES % (MANUAL) 13 % (16-48); MONOCYTES % (MANUAL) 2 % (0-11.0); NEUTROPHILS % (MANUAL) 85 (42-76); PLATELET ESTIMATE ADEQUATE
[2023-10-21 05:06] LABS: ANISOCYTOSIS 1+; HYPOCHROMASIA 1+
[2023-10-21] MEDS ORDERED: HYDR-4303 GT (08:38)
[2023-10-21] MEDS ORDERED: LEVO500T90 GT (08:38)
[2023-10-21] MEDS ORDERED: AMIN30LI2 GT (08:38)
[2023-10-21] MEDS ORDERED: ACET-868 GT (08:38)
[2023-10-21] MEDS ORDERED: IV D5/ 0.9% NACL 1,000 ML IV PRN (10:00)
[2023-10-21] MEDS ORDERED: NA PHOS,M-B/NA PHOS,DI-BA 1 EA ENEMA RC PRN (10:00)
[2023-10-21] MEDS ORDERED: MAGNESIUM HYDROXIDE 30 ML UDC GT PRN (10:00)
[2023-10-21] MEDS ORDERED: ALBUTEROL FS 2.5 MG/3 ML VIAL.NEB NEB PRN (10:00)
[2023-10-21] MEDS: IPRATROPIUM NEB FS 0.5 MG/2.5 ML AMPUL.NEB NEB SCH ×3 (10:00→20:02)
[2023-10-21] MEDS ORDERED: BISACODYL SUPP (10 MG) 10 MG/SUPP.RECT SUPP.RECT RC PRN (10:00)
[2023-10-21] MEDS ORDERED: ACETAMINOPHEN ES 500 MG TABLET GT PRN (10:00)
[2023-10-21] MEDS ORDERED: HYDROCODONE/APAP 5/325MG TABLET GT PRN (10:00)
[2023-10-21] MEDS ORDERED: ACETAMINOPHEN 650 MG/20.3 ML UDC PO PRN (10:30)
[2023-10-21] MEDS ORDERED: DEXTROSE 50%-WATER 50 ML DISP.SYRIN IV PRN (11:00)
[2023-10-21] MEDS: BLOOD SUGAR DIAGNOSTIC 1 EACH STRIP IN SCH ×2 (12:22→18:00)
[2023-10-21] MEDS: ZOSYN IVPB 2.25 G in IV D5W 50ml IV SCH ×2 (12:25→21:10)
[2023-10-21] MEDS: INSULIN REGULAR, HUMAN 100 UNIT/ML 3 ML VIAL SQ PRN ×2 (12:45→19:33)
[2023-10-21] MEDS: DAKINS QUARTER STRENGTH (0.125%) 480 ML BOTTLE TOP SCH (13:28)
[2023-10-21] MEDS: THERAHONEY GEL 1.5 OZ TUBE TP SCH (13:28)
[2023-10-21] MEDS: ALBUTEROL FS 2.5 MG/3 ML VIAL.NEB NEB SCH ×2 (14:13→20:02)
[2023-10-21] MEDS: GLUCERNA 1.2 1,000 ML BOTTLE NG PRN (15:58)
[2023-10-21] MEDS ORDERED: IV 1/2NS 1000 ML 1,000 ML IV PRN (16:00)
[2023-10-21] MEDS ORDERED: Medication Not On Formulary EA (Cranberry Extract (Cranberry) 850 MG) GT SCH (17:00)
[2023-10-21] MEDS ORDERED: DOCUSATE SODIUM 100 MG CAPSULE PO SCH (17:00)
[2023-10-21] MEDS ORDERED: APIXABAN 5 MG TABLET GT SCH (17:00)
[2023-10-21] MEDS: PROSOURCE / PROSTAT (PYXIS) 30 ML UDC GT SCH (17:54)
[2023-10-21] MEDS: ASCORBIC ACID 500 MG TABLET GT SCH (17:54)
[2023-10-21] MEDS: MAGNESIUM OXIDE 400 MG TABLET GT SCH (17:58)
[2023-10-21] MEDS: ASPIRIN 81 MG TAB.CHEW GT SCH (18:00)
[2023-10-21] MEDS: ARGININE/GLUTAMINE/CALCIUM BMB 1 EACH POWD.PACK GT SCH (18:00)
[2023-10-21] MEDS: VITAMINS A AND D 56.7 GM TUBE TP SCH (18:00)
[2023-10-21] MEDS ORDERED: POTASSIUM CHLORIDE 20 MEQ POWDER PACKET GT SCH (18:00)
[2023-10-21 19:51] LABS: HEMOGLOBIN 9.4 g/dL (13.5-17.5)
[2023-10-21] MEDS: LEVETIRACETAM SOL (5 ML) 100 MG/ML UDC GT SCH (20:58)
[2023-10-21] MEDS: METOPROLOL TARTRATE 25 MG TABLET GT SCH (21:00)
[2023-10-21] MEDS: CHLORHEXIDINE GLUCONATE 15 ML UDC MM SCH (21:19)
[2023-10-22] VITALS (11 sets, daily range): BP systolic 91–116; BP diastolic 46–67; TEMP 97.9–99.3; O2SAT 95–100
[2023-10-22] MEDS: BLOOD SUGAR DIAGNOSTIC 1 EACH STRIP IN SCH ×4 (00:13→17:34)
[2023-10-22] MEDS: INSULIN REGULAR, HUMAN 100 UNIT/ML 3 ML VIAL SQ PRN ×4 (00:14→17:46)
[2023-10-22] MEDS: IPRATROPIUM NEB FS 0.5 MG/2.5 ML AMPUL.NEB NEB SCH ×4 (01:48→20:29)
[2023-10-22] MEDS: ALBUTEROL FS 2.5 MG/3 ML VIAL.NEB NEB SCH ×4 (01:48→20:29)
[2023-10-22] MEDS: ZOSYN IVPB 2.25 G in IV D5W 50ml IV SCH (04:57)
[2023-10-22 07:00] LABS: BASOPHILS % (AUTO) 0.3 % (0.0-2.0); EOSINOPHILS # (AUTO) 0.3 K/uL (0.0-0.7); EOSINOPHILS % (AUTO) 4.4 % (0.0-6.0); HEMATOCRIT 29 % (39-51); HEMOGLOBIN 8.9 g/dL (13.5-17.5); LYMPHOCYTES # (AUTO) 0.8 K/uL (0.8-4.8); LYMPHOCYTES % (AUTO) 9.8 % (20.0-44.0); MEAN CORPUSCULAR HEMOGLOBIN 26 PG (26.0-33.0); MEAN CORPUSCULAR HGB CONC 31 g/dl (31.0-36.0); MEAN CORPUSCULAR VOLUME 84 fL (80-96); MONOCYTES # (AUTO) 0.3 K/uL (0.1-1.30); MONOCYTES % (AUTO) 4.3 % (2.0-12.0); NEUTROPHILS # (AUTO) 6.3 K/uL (1.8-8.9); NEUTROPHILS % (AUTO) 81.2 % (43.0-81.0); PLATELET COUNT (AUTO) 421 K/uL (150-450); RED BLOOD CELL COUNT(AUTO) 3.39 MIL/uL (4.5-6.0); WHITE BLOOD COUNT (AUTO) 7.7 K/uL (4.3-11.0)
[2023-10-22 07:25] LABS: CALCIUM, SERUM 8.9 mg/dL (8.5-10.1); CREATININE 0.8 mg/dL (0.6-1.3); MAGNESIUM 2.4 mg/dL (1.8-2.4); POTASSIUM 3.5 mmol/L (3.5-5.1)
[2023-10-22] MEDS ORDERED: IV D5W 1,000 ML IV PRN (08:30)
[2023-10-22] MEDS ORDERED: Medication Not On Formulary EA (Calcium Carbonate/Vitamin D3 (Os-Cal 500+D Tablet) 1 EAC GT SCH (09:00)
[2023-10-22] MEDS ORDERED: COLLAGENASE 30 GM TUBE TP SCH (09:00)
[2023-10-22] MEDS: METOPROLOL TARTRATE 25 MG TABLET GT SCH ×2 (09:00→21:00)
[2023-10-22] MEDS: CALCIUM CARB 600MG /VIT D 1 EACH TABLET GT SCH (09:28)
[2023-10-22] MEDS: PROSOURCE / PROSTAT (PYXIS) 30 ML UDC GT SCH ×2 (09:28→17:34)
[2023-10-22] MEDS: ARGININE/GLUTAMINE/CALCIUM BMB 1 EACH POWD.PACK GT SCH ×2 (09:28→17:35)
[2023-10-22] MEDS: DOCUSATE SODIUM LIQ 100 MG/10 ML UDC GT SCH ×2 (09:28→17:34)
[2023-10-22] MEDS: LEVETIRACETAM SOL (5 ML) 100 MG/ML UDC GT SCH ×2 (09:29→21:32)
[2023-10-22] MEDS: FAMOTIDINE (20 MG) 20 MG TABLET GT SCH (09:29)
[2023-10-22] MEDS: DAKINS QUARTER STRENGTH (0.125%) 480 ML BOTTLE TOP SCH (09:31)
[2023-10-22] MEDS: THERAHONEY GEL 1.5 OZ TUBE TP SCH (09:32)
[2023-10-22] MEDS: VITAMINS A AND D 56.7 GM TUBE TP SCH ×2 (09:32→17:34)
[2023-10-22] MEDS: CHLORHEXIDINE GLUCONATE 15 ML UDC MM SCH ×2 (09:36→21:32)
[2023-10-22] MEDS: PIPERACILLIN /TAZOBACTAM 3.375 G in IV D5W 100 ML IV SCH ×2 (13:31→21:31)
[2023-10-22] MEDS: ASPIRIN 81 MG TAB.CHEW GT SCH (17:34)
[2023-10-22] MEDS: ASCORBIC ACID 500 MG TABLET GT SCH (17:34)
[2023-10-22] MEDS: MAGNESIUM OXIDE 400 MG TABLET GT SCH (17:35)
[2023-10-22] MEDS: GLUCERNA 1.2 1,000 ML BOTTLE NG PRN (19:27)
[2023-10-23] VITALS (15 sets, daily range): BP systolic 102–118; BP diastolic 55–69; TEMP 98.2–99.1; O2SAT 94–100
[2023-10-23] MEDS: BLOOD SUGAR DIAGNOSTIC 1 EACH STRIP IN SCH ×5 (00:55→18:44)
[2023-10-23] MEDS: INSULIN REGULAR, HUMAN 100 UNIT/ML 3 ML VIAL SQ PRN ×3 (01:00→12:22)
[2023-10-23] MEDS: IPRATROPIUM NEB FS 0.5 MG/2.5 ML AMPUL.NEB NEB SCH ×4 (02:09→19:29)
[2023-10-23] MEDS: ALBUTEROL FS 2.5 MG/3 ML VIAL.NEB NEB SCH ×4 (02:09→19:29)
[2023-10-23] MEDS: PIPERACILLIN /TAZOBACTAM 3.375 G in IV D5W 100 ML IV SCH ×3 (04:36→20:53)
[2023-10-23 07:33] LABS: OCCULT BLOOD STOOL POSITIVE (NEGATIVE)
[2023-10-23] MEDS: CHLORHEXIDINE GLUCONATE 15 ML UDC MM SCH ×2 (09:31→20:35)
[2023-10-23] MEDS: DOCUSATE SODIUM LIQ 100 MG/10 ML UDC GT SCH ×2 (09:32→17:11)
[2023-10-23] MEDS: LEVETIRACETAM SOL (5 ML) 100 MG/ML UDC GT SCH ×2 (09:32→20:35)
[2023-10-23] MEDS: CALCIUM CARB 600MG /VIT D 1 EACH TABLET GT SCH (09:32)
[2023-10-23] MEDS: FAMOTIDINE (20 MG) 20 MG TABLET GT SCH (09:32)
[2023-10-23] MEDS: METOPROLOL TARTRATE 25 MG TABLET GT SCH ×2 (09:37→20:50)
[2023-10-23] MEDS: PROSOURCE / PROSTAT (PYXIS) 30 ML UDC GT SCH ×2 (09:39→17:12)
[2023-10-23] MEDS: ARGININE/GLUTAMINE/CALCIUM BMB 1 EACH POWD.PACK GT SCH ×2 (09:39→17:16)
[2023-10-23] MEDS: THERAHONEY GEL 1.5 OZ TUBE TP SCH (10:11)
[2023-10-23] MEDS: DAKINS QUARTER STRENGTH (0.125%) 480 ML BOTTLE TOP SCH (10:11)
[2023-10-23] MEDS: VITAMINS A AND D 56.7 GM TUBE TP SCH ×2 (10:11→17:13)
[2023-10-23 15:08] LABS: BASOPHILS % (AUTO) 0.3 % (0.0-2.0); EOSINOPHILS # (AUTO) 0.3 K/uL (0.0-0.7); HEMATOCRIT 33 % (39-51); HEMOGLOBIN 10.2 g/dL (13.5-17.5); LYMPHOCYTES # (AUTO) 1.4 K/uL (0.8-4.8); LYMPHOCYTES % (AUTO) 18.4 % (20.0-44.0); MEAN CORPUSCULAR HEMOGLOBIN 26 PG (26.0-33.0); MEAN CORPUSCULAR HGB CONC 31 g/dl (31.0-36.0); MEAN CORPUSCULAR VOLUME 86 fL (80-96); MONOCYTES # (AUTO) 0.4 K/uL (0.1-1.30); MONOCYTES % (AUTO) 5.7 % (2.0-12.0); NEUTROPHILS # (AUTO) 5.3 K/uL (1.8-8.9); NEUTROPHILS % (AUTO) 71.6 % (43.0-81.0); PLATELET COUNT (AUTO) 398 K/uL (150-450); RED BLOOD CELL COUNT(AUTO) 3.86 MIL/uL (4.5-6.0); RED CELL DISTRIBUTION WIDTH 20.8 % (11.5-15.0); WHITE BLOOD COUNT (AUTO) 7.5 K/uL (4.3-11.0)
[2023-10-23 15:21] LABS: CALCIUM, SERUM 9.4 mg/dL (8.5-10.1); CREATININE 0.7 mg/dL (0.6-1.3)
[2023-10-23] MEDS: GLUCERNA 1.2 1,000 ML BOTTLE NG PRN (17:07)
[2023-10-23] MEDS: ASPIRIN 81 MG TAB.CHEW GT SCH ×2 (17:11→17:15)
[2023-10-23] MEDS: MAGNESIUM OXIDE 400 MG TABLET GT SCH (17:11)
[2023-10-23] MEDS: ASCORBIC ACID 500 MG TABLET GT SCH (17:12)
[2023-10-23] MEDS ORDERED: IV NS 0.9% 1,000 ML IV PRN (19:30)
[2023-10-24] VITALS (13 sets, daily range): BP systolic 104–128; BP diastolic 64–66; TEMP 97.6–98.5; O2SAT 96–100
[2023-10-24] MEDS: BLOOD SUGAR DIAGNOSTIC 1 EACH STRIP IN SCH ×4 (00:37→18:07)
[2023-10-24] MEDS: ALBUTEROL FS 2.5 MG/3 ML VIAL.NEB NEB SCH ×4 (02:20→20:01)
[2023-10-24] MEDS: IPRATROPIUM NEB FS 0.5 MG/2.5 ML AMPUL.NEB NEB SCH ×4 (02:20→20:01)
[2023-10-24] MEDS: PIPERACILLIN /TAZOBACTAM 3.375 G in IV D5W 100 ML IV SCH ×3 (04:00→21:03)
[2023-10-24] MEDS ORDERED: IV NS 0.9% 1,000 ML IV PRN (06:00)
[2023-10-24] MEDS ORDERED: IV NS 0.9% 1,000 ML BAG IV PRN (06:00)
[2023-10-24 07:08] LABS: BASOPHILS % (AUTO) 0.5 % (0.0-2.0); EOSINOPHILS # (AUTO) 0.3 K/uL (0.0-0.7); HEMATOCRIT 31 % (39-51); HEMOGLOBIN 9.6 g/dL (13.5-17.5); LYMPHOCYTES % (AUTO) 14.2 % (20.0-44.0); MEAN CORPUSCULAR HEMOGLOBIN 26 PG (26.0-33.0); MEAN CORPUSCULAR HGB CONC 31 g/dl (31.0-36.0); MEAN CORPUSCULAR VOLUME 84 fL (80-96); MONOCYTES # (AUTO) 0.4 K/uL (0.1-1.30); MONOCYTES % (AUTO) 5.6 % (2.0-12.0); NEUTROPHILS # (AUTO) 5.2 K/uL (1.8-8.9); NEUTROPHILS % (AUTO) 74.7 % (43.0-81.0); PLATELET COUNT (AUTO) 423 K/uL (150-450); RED BLOOD CELL COUNT(AUTO) 3.67 MIL/uL (4.5-6.0); RED CELL DISTRIBUTION WIDTH 20.4 % (11.5-15.0)
[2023-10-24 07:18] LABS: CALCIUM, SERUM 9.1 mg/dL (8.5-10.1); CREATININE 0.7 mg/dL (0.6-1.3)
[2023-10-24] MEDS ORDERED: SILVER NITRATE APPLICATOR 1 EA BOX TP SCH (07:30)
[2023-10-24] MEDS ORDERED: LIDOCAINE 1%-EPI 1:100,000 50 ML VIAL IJ ONE (07:30)
[2023-10-24] MEDS: METOPROLOL TARTRATE 25 MG TABLET GT SCH ×2 (09:00→21:32)
[2023-10-24] MEDS: ARGININE/GLUTAMINE/CALCIUM BMB 1 EACH POWD.PACK GT SCH ×2 (10:11→18:06)
[2023-10-24] MEDS: CALCIUM CARB 600MG /VIT D 1 EACH TABLET GT SCH (10:11)
[2023-10-24] MEDS: DOCUSATE SODIUM LIQ 100 MG/10 ML UDC GT SCH ×2 (10:11→18:06)
[2023-10-24] MEDS: LEVETIRACETAM SOL (5 ML) 100 MG/ML UDC GT SCH ×2 (10:11→21:26)
[2023-10-24] MEDS: PROSOURCE / PROSTAT (PYXIS) 30 ML UDC GT SCH ×2 (10:12→18:06)
[2023-10-24] MEDS: FAMOTIDINE (20 MG) 20 MG TABLET GT SCH (10:12)
[2023-10-24] MEDS: CHLORHEXIDINE GLUCONATE 15 ML UDC MM SCH ×2 (10:12→21:26)
[2023-10-24] MEDS: DAKINS QUARTER STRENGTH (0.125%) 480 ML BOTTLE TOP SCH (10:13)
[2023-10-24] MEDS: ASCORBIC ACID 500 MG TABLET GT SCH ×2 (10:13→18:06)
[2023-10-24] MEDS: THERAHONEY GEL 1.5 OZ TUBE TP SCH (10:13)
[2023-10-24] MEDS: VITAMINS A AND D 56.7 GM TUBE TP SCH ×2 (10:13→18:09)
[2023-10-24] MEDS ORDERED: POLYMYXIN B SULFATE 0 UNITS ONE (10:37)
[2023-10-24] MEDS ORDERED: ANESTHESIA TRAY IN PYXIS 1 EA TRAY MC ONE (10:38)
[2023-10-24] MEDS ORDERED: POTASSIUM CHLORIDE 20 MEQ POWDER PACKET PO ONE (11:30)
[2023-10-24] MEDS: INSULIN REGULAR, HUMAN 100 UNIT/ML 3 ML VIAL SQ PRN ×2 (12:53→18:07)
[2023-10-24] MEDS: MAGNESIUM OXIDE 400 MG TABLET GT SCH (18:06)
[2023-10-24] MEDS: ASPIRIN 81 MG TAB.CHEW GT SCH (18:06)
[2023-10-24] MEDS: VANCOMYCIN 0.75 GM in IV D5W 250 ML IV SCH (18:11)
[2023-10-25] VITALS (15 sets, daily range): BP systolic 98–133; BP diastolic 52–55; TEMP 98.1–99.1; O2SAT 95–100
[2023-10-25] MEDS: BLOOD SUGAR DIAGNOSTIC 1 EACH STRIP IN SCH ×5 (00:50→23:57)
[2023-10-25] MEDS: INSULIN REGULAR, HUMAN 100 UNIT/ML 3 ML VIAL SQ PRN ×4 (00:51→23:57)
[2023-10-25] MEDS: ALBUTEROL FS 2.5 MG/3 ML VIAL.NEB NEB SCH ×4 (01:42→20:10)
[2023-10-25] MEDS: IPRATROPIUM NEB FS 0.5 MG/2.5 ML AMPUL.NEB NEB SCH ×4 (01:42→20:10)
[2023-10-25] MEDS: GLUCERNA 1.2 1,000 ML BOTTLE NG PRN (03:55)
[2023-10-25] MEDS: VANCOMYCIN 0.75 GM in IV D5W 250 ML IV SCH ×2 (04:00→16:07)
[2023-10-25] MEDS: PIPERACILLIN /TAZOBACTAM 3.375 G in IV D5W 100 ML IV SCH ×2 (05:37→12:14)
[2023-10-25 06:51] LABS: BASOPHILS % (AUTO) 0.4 % (0.0-2.0); EOSINOPHILS # (AUTO) 0.5 K/uL (0.0-0.7); EOSINOPHILS % (AUTO) 7.2 % (0.0-6.0); HEMATOCRIT 31 % (39-51); HEMOGLOBIN 9.3 g/dL (13.5-17.5); LYMPHOCYTES # (AUTO) 1.2 K/uL (0.8-4.8); LYMPHOCYTES % (AUTO) 15.8 % (20.0-44.0); MEAN CORPUSCULAR HEMOGLOBIN 26 PG (26.0-33.0); MEAN CORPUSCULAR HGB CONC 30 g/dl (31.0-36.0); MEAN CORPUSCULAR VOLUME 87 fL (80-96); MONOCYTES # (AUTO) 0.4 K/uL (0.1-1.30); NEUTROPHILS # (AUTO) 5.2 K/uL (1.8-8.9); NEUTROPHILS % (AUTO) 70.6 % (43.0-81.0); PLATELET COUNT (AUTO) 407 K/uL (150-450); RED BLOOD CELL COUNT(AUTO) 3.57 MIL/uL (4.5-6.0); RED CELL DISTRIBUTION WIDTH 20.6 % (11.5-15.0); WHITE BLOOD COUNT (AUTO) 7.4 K/uL (4.3-11.0)
[2023-10-25 07:09] LABS: CALCIUM, SERUM 9.1 mg/dL (8.5-10.1); CREATININE 0.7 mg/dL (0.6-1.3); POTASSIUM 3.6 mmol/L (3.5-5.1)
[2023-10-25] MEDS: DAKINS QUARTER STRENGTH (0.125%) 480 ML BOTTLE TOP SCH (08:59)
[2023-10-25] MEDS: IV D5W 1,000 ML IV SCH ×2 (08:59→21:49)
[2023-10-25] MEDS: THERAHONEY GEL 1.5 OZ TUBE TP SCH (08:59)
[2023-10-25] MEDS: CHLORHEXIDINE GLUCONATE 15 ML UDC MM SCH ×2 (09:00→20:31)
[2023-10-25] MEDS: DOCUSATE SODIUM LIQ 100 MG/10 ML UDC GT SCH ×2 (09:00→17:07)
[2023-10-25] MEDS: PROSOURCE / PROSTAT (PYXIS) 30 ML UDC GT SCH ×2 (09:00→17:07)
[2023-10-25] MEDS: CALCIUM CARB 600MG /VIT D 1 EACH TABLET GT SCH (09:00)
[2023-10-25] MEDS: ARGININE/GLUTAMINE/CALCIUM BMB 1 EACH POWD.PACK GT SCH ×2 (09:00→17:07)
[2023-10-25] MEDS: LEVETIRACETAM SOL (5 ML) 100 MG/ML UDC GT SCH ×2 (09:00→20:31)
[2023-10-25] MEDS: METOPROLOL TARTRATE 25 MG TABLET GT SCH ×2 (09:01→20:36)
[2023-10-25] MEDS: FAMOTIDINE (20 MG) 20 MG TABLET GT SCH (09:01)
[2023-10-25] MEDS: VITAMINS A AND D 56.7 GM TUBE TP SCH ×2 (09:02→17:22)
[2023-10-25] MEDS: MAGNESIUM OXIDE 400 MG TABLET GT SCH (17:07)
[2023-10-25] MEDS: ASPIRIN 81 MG TAB.CHEW GT SCH (17:07)
[2023-10-25] MEDS: ASCORBIC ACID 500 MG TABLET GT SCH (17:07)
[2023-10-25] MEDS: MEROPENEM 1 G in IV NS 0.9% 100 ML IV SCH (17:22)
[2023-10-26] VITALS (13 sets, daily range): BP systolic 107–136; BP diastolic 51–56; TEMP 98–100.2; O2SAT 97–100
[2023-10-26] MEDS: MEROPENEM 1 G in IV NS 0.9% 100 ML IV SCH ×3 (00:30→16:02)
[2023-10-26] MEDS: ALBUTEROL FS 2.5 MG/3 ML VIAL.NEB NEB SCH ×4 (00:45→20:11)
[2023-10-26] MEDS: IPRATROPIUM NEB FS 0.5 MG/2.5 ML AMPUL.NEB NEB SCH ×4 (00:45→20:11)
[2023-10-26] MEDS: GLUCERNA 1.2 1,000 ML BOTTLE NG PRN (03:18)
[2023-10-26 04:27] LABS: CREATININE 0.7 mg/dL (0.6-1.3); POTASSIUM 3.7 mmol/L (3.5-5.1)
[2023-10-26] MEDS: VANCOMYCIN 0.75 GM in IV D5W 250 ML IV SCH ×2 (05:42→16:44)
[2023-10-26] MEDS: BLOOD SUGAR DIAGNOSTIC 1 EACH STRIP IN SCH ×3 (06:03→17:10)
[2023-10-26] MEDS: INSULIN REGULAR, HUMAN 100 UNIT/ML 3 ML VIAL SQ PRN ×3 (06:04→17:10)
[2023-10-26] MEDS: LEVETIRACETAM SOL (5 ML) 100 MG/ML UDC GT SCH ×2 (08:52→20:58)
[2023-10-26] MEDS: CHLORHEXIDINE GLUCONATE 15 ML UDC MM SCH ×2 (08:52→20:58)
[2023-10-26] MEDS: DOCUSATE SODIUM LIQ 100 MG/10 ML UDC GT SCH ×2 (08:52→17:08)
[2023-10-26] MEDS: CALCIUM CARB 600MG /VIT D 1 EACH TABLET GT SCH (08:52)
[2023-10-26] MEDS: FAMOTIDINE (20 MG) 20 MG TABLET GT SCH (08:52)
[2023-10-26] MEDS: ARGININE/GLUTAMINE/CALCIUM BMB 1 EACH POWD.PACK GT SCH ×2 (08:53→17:08)
[2023-10-26] MEDS: METOPROLOL TARTRATE 25 MG TABLET GT SCH ×2 (08:53→21:00)
[2023-10-26] MEDS: PROSOURCE / PROSTAT (PYXIS) 30 ML UDC GT SCH ×2 (08:53→17:08)
[2023-10-26] MEDS: THERAHONEY GEL 1.5 OZ TUBE TP SCH (08:55)
[2023-10-26] MEDS: VITAMINS A AND D 56.7 GM TUBE TP SCH ×2 (08:55→17:10)
[2023-10-26] MEDS: DAKINS QUARTER STRENGTH (0.125%) 480 ML BOTTLE TOP SCH (08:56)
[2023-10-26] MEDS: IV D5W 1,000 ML IV SCH (12:01)
[2023-10-26] MEDS: ACETAMINOPHEN 650 MG/20.3 ML UDC GT PRN (16:43)
[2023-10-26] MEDS: MAGNESIUM OXIDE 400 MG TABLET GT SCH (17:08)
[2023-10-26] MEDS: ASCORBIC ACID 500 MG TABLET GT SCH (17:08)
[2023-10-26] MEDS: ASPIRIN 81 MG TAB.CHEW GT SCH (17:09)
[2023-10-27] VITALS (15 sets, daily range): BP systolic 94–120; BP diastolic 50–63; TEMP 97.4–98.7; O2SAT 97–100
[2023-10-27] MEDS: BLOOD SUGAR DIAGNOSTIC 1 EACH STRIP IN SCH ×4 (00:35→18:12)
[2023-10-27] MEDS: MEROPENEM 1 G in IV NS 0.9% 100 ML IV SCH ×3 (00:48→18:11)
[2023-10-27] MEDS: INSULIN REGULAR, HUMAN 100 UNIT/ML 3 ML VIAL SQ PRN ×2 (01:00→11:35)
[2023-10-27] MEDS: IV D5W 1,000 ML IV SCH ×2 (01:15→13:50)
[2023-10-27] MEDS: IPRATROPIUM NEB FS 0.5 MG/2.5 ML AMPUL.NEB NEB SCH ×4 (02:01→20:19)
[2023-10-27] MEDS: ALBUTEROL FS 2.5 MG/3 ML VIAL.NEB NEB SCH ×4 (02:01→20:19)
[2023-10-27] MEDS: VANCOMYCIN 0.75 GM in IV D5W 250 ML IV SCH ×2 (04:30→18:49)
[2023-10-27] MEDS ORDERED: IV NS 0.9% 1,000 ML IV PRN (06:00)
[2023-10-27] MEDS ORDERED: IV NS 0.9% 1,000 ML BAG IV SCH (06:00)
[2023-10-27 07:43] LABS: BASOPHILS # (AUTO) 0.1 K/uL (0.0-0.2); BASOPHILS % (AUTO) 0.6 % (0.0-2.0); EOSINOPHILS # (AUTO) 0.7 K/uL (0.0-0.7); EOSINOPHILS % (AUTO) 7.5 % (0.0-6.0); HEMATOCRIT 29 % (39-51); HEMOGLOBIN 8.7 g/dL (13.5-17.5); LYMPHOCYTES # (AUTO) 1.5 K/uL (0.8-4.8); LYMPHOCYTES % (AUTO) 16.2 % (20.0-44.0); MEAN CORPUSCULAR HEMOGLOBIN 26 PG (26.0-33.0); MEAN CORPUSCULAR HGB CONC 30 g/dl (31.0-36.0); MEAN CORPUSCULAR VOLUME 85 fL (80-96); MONOCYTES # (AUTO) 0.4 K/uL (0.1-1.30); MONOCYTES % (AUTO) 3.8 % (2.0-12.0); NEUTROPHILS # (AUTO) 6.8 K/uL (1.8-8.9); NEUTROPHILS % (AUTO) 71.9 % (43.0-81.0); RED BLOOD CELL COUNT(AUTO) 3.39 MIL/uL (4.5-6.0); WHITE BLOOD COUNT (AUTO) 9.4 K/uL (4.3-11.0)
[2023-10-27 07:45] LABS: INR 1.08 (0.91-1.10); PARTIAL THROMBOPLASTIN TIME 26.6 SEC (24.3-34.3); PROTHROMBIN TIME 11.4 SECS (9.2-11.1)
[2023-10-27 07:51] LABS: CALCIUM, SERUM 8.6 mg/dL (8.5-10.1); CREATININE 0.5 mg/dL (0.6-1.3); POTASSIUM 3.7 mmol/L (3.5-5.1)
[2023-10-27] MEDS: DAKINS QUARTER STRENGTH (0.125%) 480 ML BOTTLE TOP SCH (08:38)
[2023-10-27] MEDS: VITAMINS A AND D 56.7 GM TUBE TP SCH ×2 (08:39→17:00)
[2023-10-27] MEDS: THERAHONEY GEL 1.5 OZ TUBE TP SCH (08:39)
[2023-10-27] MEDS: CALCIUM CARB 600MG /VIT D 1 EACH TABLET GT SCH (08:40)
[2023-10-27] MEDS: DOCUSATE SODIUM LIQ 100 MG/10 ML UDC GT SCH ×2 (08:40→17:00)
[2023-10-27] MEDS: FAMOTIDINE (20 MG) 20 MG TABLET GT SCH (08:41)
[2023-10-27] MEDS: LEVETIRACETAM SOL (5 ML) 100 MG/ML UDC GT SCH ×2 (08:41→20:25)
[2023-10-27] MEDS: METOPROLOL TARTRATE 25 MG TABLET GT SCH ×2 (08:41→20:26)
[2023-10-27] MEDS: ARGININE/GLUTAMINE/CALCIUM BMB 1 EACH POWD.PACK GT SCH ×2 (08:41→17:00)
[2023-10-27] MEDS: PROSOURCE / PROSTAT (PYXIS) 30 ML UDC GT SCH ×2 (08:41→17:00)
[2023-10-27] MEDS: CHLORHEXIDINE GLUCONATE 15 ML UDC MM SCH ×2 (08:46→20:25)
[2023-10-27] MEDS ORDERED: FENTANYL PF 100MCG/2ML AMPUL ONE (15:51)
[2023-10-27] MEDS ORDERED: MIDAZOLAM HCL 2 MG/2ML VIAL ONE (15:51)
[2023-10-27] MEDS ORDERED: BUPIVACAINE 0.5 % PF 150 MG/30 ML VIAL ONE (15:52)
[2023-10-27] MEDS ORDERED: METOPROLOL TARTRATE INJ 5 MG/5 ML AMPUL ONE (16:36)
[2023-10-27] MEDS ORDERED: CELLULOSE,OXIDIZED 1 EA PACK MC ONE (17:00)
[2023-10-27] MEDS: MAGNESIUM OXIDE 400 MG TABLET GT SCH (17:01)
[2023-10-27] MEDS: ASPIRIN 81 MG TAB.CHEW GT SCH (17:01)
[2023-10-27] MEDS: ASCORBIC ACID 500 MG TABLET GT SCH (17:01)
[2023-10-27 19:48] LABS: PLATELET COUNT (AUTO) 423 K/uL (150-450)
[2023-10-28] VITALS (13 sets, daily range): BP systolic 91–109; BP diastolic 51–75; TEMP 98.6–100.9; O2SAT 97–100
[2023-10-28] MEDS: INSULIN REGULAR, HUMAN 100 UNIT/ML 3 ML VIAL SQ PRN ×2 (00:01→14:09)
[2023-10-28] MEDS: MEROPENEM 1 G in IV NS 0.9% 100 ML IV SCH ×3 (00:58→17:08)
[2023-10-28] MEDS: IPRATROPIUM NEB FS 0.5 MG/2.5 ML AMPUL.NEB NEB SCH ×4 (01:26→20:25)
[2023-10-28] MEDS: ALBUTEROL FS 2.5 MG/3 ML VIAL.NEB NEB SCH ×4 (01:26→20:25)
[2023-10-28] MEDS: IV D5W 1,000 ML IV SCH (03:15)
[2023-10-28] MEDS: VANCOMYCIN 0.75 GM in IV D5W 250 ML IV SCH (04:53)
[2023-10-28] MEDS: BLOOD SUGAR DIAGNOSTIC 1 EACH STRIP IN SCH ×5 (06:25→23:22)
[2023-10-28 07:22] LABS: BASOPHILS % (AUTO) 0.4 % (0.0-2.0); EOSINOPHILS # (AUTO) 0.4 K/uL (0.0-0.7); HEMATOCRIT 30 % (39-51); HEMOGLOBIN 9.1 g/dL (13.5-17.5); MEAN CORPUSCULAR HEMOGLOBIN 26 PG (26.0-33.0); MONOCYTES # (AUTO) 0.3 K/uL (0.1-1.30); NEUTROPHILS # (AUTO) 6.2 K/uL (1.8-8.9); RED BLOOD CELL COUNT(AUTO) 3.55 MIL/uL (4.5-6.0)
[2023-10-28 07:29] LABS: EOSINOPHILS % (AUTO) 5.5 % (0.0-6.0); LYMPHOCYTES % (AUTO) 12.7 % (20.0-44.0); MEAN CORPUSCULAR HGB CONC 31 g/dl (31.0-36.0); MEAN CORPUSCULAR VOLUME 84 fL (80-96); MONOCYTES % (AUTO) 3.4 % (2.0-12.0); PLATELET COUNT (AUTO) 449 K/uL (150-450); RED CELL DISTRIBUTION WIDTH 19.7 % (11.5-15.0)
[2023-10-28 07:44] LABS: CALCIUM, SERUM 8.2 mg/dL (8.5-10.1); CREATININE 0.5 mg/dL (0.6-1.3); POTASSIUM 3.3 mmol/L (3.5-5.1)
[2023-10-28] MEDS: LEVETIRACETAM SOL (5 ML) 100 MG/ML UDC GT SCH ×2 (08:38→20:42)
[2023-10-28] MEDS: CALCIUM CARB 600MG /VIT D 1 EACH TABLET GT SCH (08:38)
[2023-10-28] MEDS: DOCUSATE SODIUM LIQ 100 MG/10 ML UDC GT SCH ×2 (08:38→16:59)
[2023-10-28] MEDS: FAMOTIDINE (20 MG) 20 MG TABLET GT SCH (08:38)
[2023-10-28] MEDS: CHLORHEXIDINE GLUCONATE 15 ML UDC MM SCH ×2 (08:38→20:42)
[2023-10-28] MEDS: METOPROLOL TARTRATE 25 MG TABLET GT SCH ×2 (08:39→20:50)
[2023-10-28] MEDS: PROSOURCE / PROSTAT (PYXIS) 30 ML UDC GT SCH ×2 (08:44→17:08)
[2023-10-28] MEDS: ARGININE/GLUTAMINE/CALCIUM BMB 1 EACH POWD.PACK GT SCH ×2 (08:44→17:08)
[2023-10-28] MEDS: POTASSIUM CL. PREMIX PERIPHER. 50 ML IV SCH ×2 (09:27→10:31)
[2023-10-28] MEDS: THERAHONEY GEL 1.5 OZ TUBE TP SCH (09:47)
[2023-10-28] MEDS: DAKINS QUARTER STRENGTH (0.125%) 480 ML BOTTLE TOP SCH (09:47)
[2023-10-28] MEDS: VITAMINS A AND D 56.7 GM TUBE TP SCH ×2 (09:48→17:42)
[2023-10-28] MEDS: Potassium Chloride 20 MEQ in IV NS 0.9% 1,000 ML IV SCH ×2 (12:42→23:21)
[2023-10-28] MEDS: ASCORBIC ACID 500 MG TABLET GT SCH (17:08)
[2023-10-28] MEDS: MAGNESIUM OXIDE 400 MG TABLET GT SCH (17:08)
[2023-10-28] MEDS: ASPIRIN 81 MG TAB.CHEW GT SCH (17:18)
[2023-10-28] MEDS: GLUCERNA 1.2 1,000 ML BOTTLE NG PRN (17:53)
[2023-10-28] MEDS ORDERED: VANCOMYCIN 500 MG in IV D5W 100ml IV SCH (22:00)
[2023-10-29] VITALS (16 sets, daily range): BP systolic 103–110; BP diastolic 53–66; TEMP 97.9–99.1; O2SAT 98–100
[2023-10-29] MEDS: MEROPENEM 1 G in IV NS 0.9% 100 ML IV SCH ×3 (00:43→17:02)
[2023-10-29] MEDS: ALBUTEROL FS 2.5 MG/3 ML VIAL.NEB NEB SCH ×4 (02:16→19:46)
[2023-10-29] MEDS: IPRATROPIUM NEB FS 0.5 MG/2.5 ML AMPUL.NEB NEB SCH ×4 (02:16→19:46)
[2023-10-29] MEDS: BLOOD SUGAR DIAGNOSTIC 1 EACH STRIP IN SCH ×3 (07:02→20:18)
[2023-10-29 07:54] LABS: CALCIUM, SERUM 7.9 mg/dL (8.5-10.1); CREATININE 0.5 mg/dL (0.6-1.3); POTASSIUM 3.9 mmol/L (3.5-5.1)
[2023-10-29] MEDS: CALCIUM CARB 600MG /VIT D 1 EACH TABLET GT SCH (10:53)
[2023-10-29] MEDS: DOCUSATE SODIUM LIQ 100 MG/10 ML UDC GT SCH ×2 (10:53→17:00)
[2023-10-29] MEDS: ARGININE/GLUTAMINE/CALCIUM BMB 1 EACH POWD.PACK GT SCH ×2 (10:54→16:56)
[2023-10-29] MEDS: LEVETIRACETAM SOL (5 ML) 100 MG/ML UDC GT SCH ×2 (10:54→21:42)
[2023-10-29] MEDS: FAMOTIDINE (20 MG) 20 MG TABLET GT SCH (10:59)
[2023-10-29] MEDS: METOPROLOL TARTRATE 25 MG TABLET GT SCH ×2 (10:59→21:43)
[2023-10-29] MEDS: DAKINS QUARTER STRENGTH (0.125%) 480 ML BOTTLE TOP SCH (11:00)
[2023-10-29] MEDS: PROSOURCE / PROSTAT (PYXIS) 30 ML UDC GT SCH ×2 (11:00→16:56)
[2023-10-29] MEDS: CHLORHEXIDINE GLUCONATE 15 ML UDC MM SCH ×2 (11:00→21:42)
[2023-10-29] MEDS: THERAHONEY GEL 1.5 OZ TUBE TP SCH (11:01)
[2023-10-29] MEDS: VITAMINS A AND D 56.7 GM TUBE TP SCH ×2 (11:01→17:00)
[2023-10-29] MEDS: INSULIN REGULAR, HUMAN 100 UNIT/ML 3 ML VIAL SQ PRN ×2 (12:18→20:18)
[2023-10-29] MEDS: GLUCERNA 1.2 1,000 ML BOTTLE NG PRN (16:55)
[2023-10-29] MEDS: Potassium Chloride 20 MEQ in IV NS 0.9% 1,000 ML IV SCH (16:55)
[2023-10-29] MEDS: ASCORBIC ACID 500 MG TABLET GT SCH (17:00)
[2023-10-29] MEDS: MAGNESIUM OXIDE 400 MG TABLET GT SCH (17:00)
[2023-10-29] MEDS: ASPIRIN 81 MG TAB.CHEW GT SCH (17:00)
[2023-10-29] MEDS ORDERED: ONDANSETRON HCL/PF 4 MG/2 ML VIAL IV PRN (21:30)
[2023-10-30] VITALS (14 sets, daily range): BP systolic 92–130; BP diastolic 47–80; TEMP 98.5–102.4; O2SAT 90–100
[2023-10-30] MEDS: MEROPENEM 1 G in IV NS 0.9% 100 ML IV SCH ×3 (00:28→16:27)
[2023-10-30] MEDS: BLOOD SUGAR DIAGNOSTIC 1 EACH STRIP IN SCH ×4 (00:28→18:00)
[2023-10-30] MEDS: INSULIN REGULAR, HUMAN 100 UNIT/ML 3 ML VIAL SQ PRN ×2 (00:29→11:37)
[2023-10-30] MEDS: Potassium Chloride 20 MEQ in IV NS 0.9% 1,000 ML IV SCH ×2 (00:30→15:04)
[2023-10-30] MEDS: IPRATROPIUM NEB FS 0.5 MG/2.5 ML AMPUL.NEB NEB SCH ×4 (01:59→19:47)
[2023-10-30] MEDS: ALBUTEROL FS 2.5 MG/3 ML VIAL.NEB NEB SCH ×4 (02:00→19:48)
[2023-10-30 06:37] LABS: BASOPHILS % (AUTO) 0.4 % (0.0-2.0); EOSINOPHILS # (AUTO) 0.2 K/uL (0.0-0.7); HEMATOCRIT 26 % (39-51); HEMOGLOBIN 8.2 g/dL (13.5-17.5); LYMPHOCYTES # (AUTO) 0.6 K/uL (0.8-4.8); LYMPHOCYTES % (AUTO) 7.5 % (20.0-44.0); MEAN CORPUSCULAR HEMOGLOBIN 26 PG (26.0-33.0); MEAN CORPUSCULAR HGB CONC 31 g/dl (31.0-36.0); MEAN CORPUSCULAR VOLUME 82 fL (80-96); MONOCYTES # (AUTO) 0.4 K/uL (0.1-1.30); MONOCYTES % (AUTO) 5.3 % (2.0-12.0); NEUTROPHILS # (AUTO) 6.6 K/uL (1.8-8.9); NEUTROPHILS % (AUTO) 84.8 % (43.0-81.0); PLATELET COUNT (AUTO) 426 K/uL (150-450); RED BLOOD CELL COUNT(AUTO) 3.21 MIL/uL (4.5-6.0); RED CELL DISTRIBUTION WIDTH 19.3 % (11.5-15.0); WHITE BLOOD COUNT (AUTO) 7.8 K/uL (4.3-11.0)
[2023-10-30 07:06] LABS: CALCIUM, SERUM 8.4 mg/dL (8.5-10.1); CREATININE 0.7 mg/dL (0.6-1.3)
[2023-10-30] MEDS: FAMOTIDINE (20 MG) 20 MG TABLET GT SCH (08:29)
[2023-10-30] MEDS: DOCUSATE SODIUM LIQ 100 MG/10 ML UDC GT SCH ×2 (08:29→16:27)
[2023-10-30] MEDS: CHLORHEXIDINE GLUCONATE 15 ML UDC MM SCH ×2 (08:29→20:21)
[2023-10-30] MEDS: CALCIUM CARB 600MG /VIT D 1 EACH TABLET GT SCH (08:29)
[2023-10-30] MEDS: LEVETIRACETAM SOL (5 ML) 100 MG/ML UDC GT SCH ×2 (08:30→20:21)
[2023-10-30] MEDS: METOPROLOL TARTRATE 25 MG TABLET GT SCH ×2 (08:30→20:21)
[2023-10-30] MEDS: PROSOURCE / PROSTAT (PYXIS) 30 ML UDC GT SCH ×2 (08:32→16:27)
[2023-10-30] MEDS: ARGININE/GLUTAMINE/CALCIUM BMB 1 EACH POWD.PACK GT SCH ×2 (08:33→16:27)
[2023-10-30] MEDS: THERAHONEY GEL 1.5 OZ TUBE TP SCH (08:34)
[2023-10-30] MEDS: DAKINS QUARTER STRENGTH (0.125%) 480 ML BOTTLE TOP SCH (08:35)
[2023-10-30] MEDS: VITAMINS A AND D 56.7 GM TUBE TP SCH ×2 (08:35→16:31)
[2023-10-30] MEDS: ACETAMINOPHEN 650 MG/20.3 ML UDC GT PRN (15:56)
[2023-10-30] MEDS: ASCORBIC ACID 500 MG TABLET GT SCH (18:00)
[2023-10-30] MEDS: ASPIRIN 81 MG TAB.CHEW GT SCH (18:00)
[2023-10-30] MEDS: MAGNESIUM OXIDE 400 MG TABLET GT SCH (18:00)
[2023-10-30] MEDS ORDERED: PANTOPRAZOLE 40 MG/PACK PACK GT SCH (20:00)
[2023-10-30] MEDS ORDERED: PANTOPRAZOLE 40 MG TABLET.DR PO SCH (20:00)
[2023-10-31] VITALS (16 sets, daily range): BP systolic 111–125; BP diastolic 57–62; TEMP 98.1–99.7; O2SAT 95–100
[2023-10-31] MEDS: INSULIN REGULAR, HUMAN 100 UNIT/ML 3 ML VIAL SQ PRN ×5 (00:16→23:31)
[2023-10-31] MEDS: BLOOD SUGAR DIAGNOSTIC 1 EACH STRIP IN SCH ×5 (00:16→23:31)
[2023-10-31] MEDS: ALBUTEROL FS 2.5 MG/3 ML VIAL.NEB NEB SCH ×4 (01:28→19:37)
[2023-10-31] MEDS: IPRATROPIUM NEB FS 0.5 MG/2.5 ML AMPUL.NEB NEB SCH ×4 (01:29→19:37)
[2023-10-31] MEDS: MEROPENEM 1 G in IV NS 0.9% 100 ML IV SCH ×3 (01:31→16:19)
[2023-10-31] MEDS: Potassium Chloride 20 MEQ in IV NS 0.9% 1,000 ML IV SCH ×2 (05:02→17:56)
[2023-10-31] MEDS: GLUCERNA 1.2 1,000 ML BOTTLE NG PRN (05:18)
[2023-10-31 07:00] LABS: BASOPHILS % (AUTO) 0.8 % (0.0-2.0); EOSINOPHILS # (AUTO) 0.3 K/uL (0.0-0.7); EOSINOPHILS % (AUTO) 5.8 % (0.0-6.0); HEMATOCRIT 24 % (39-51); HEMOGLOBIN 7.3 g/dL (13.5-17.5); LYMPHOCYTES # (AUTO) 1.1 K/uL (0.8-4.8); LYMPHOCYTES % (AUTO) 21.9 % (20.0-44.0); MEAN CORPUSCULAR HEMOGLOBIN 26 PG (26.0-33.0); MEAN CORPUSCULAR HGB CONC 31 g/dl (31.0-36.0); MEAN CORPUSCULAR VOLUME 83 fL (80-96); MONOCYTES # (AUTO) 0.4 K/uL (0.1-1.30); MONOCYTES % (AUTO) 8.3 % (2.0-12.0); NEUTROPHILS # (AUTO) 3.2 K/uL (1.8-8.9); NEUTROPHILS % (AUTO) 63.2 % (43.0-81.0); PLATELET COUNT (AUTO) 416 K/uL (150-450); RED BLOOD CELL COUNT(AUTO) 2.88 MIL/uL (4.5-6.0); RED CELL DISTRIBUTION WIDTH 19.5 % (11.5-15.0)
[2023-10-31 07:22] LABS: CALCIUM, SERUM 7.9 mg/dL (8.5-10.1); CREATININE 0.5 mg/dL (0.6-1.3); POTASSIUM 3.5 mmol/L (3.5-5.1)
[2023-10-31] MEDS: CHLORHEXIDINE GLUCONATE 15 ML UDC MM SCH ×2 (08:19→21:05)
[2023-10-31] MEDS: LEVETIRACETAM SOL (5 ML) 100 MG/ML UDC GT SCH ×2 (08:19→21:05)
[2023-10-31] MEDS: ARGININE/GLUTAMINE/CALCIUM BMB 1 EACH POWD.PACK GT SCH ×2 (08:19→16:20)
[2023-10-31] MEDS: PROSOURCE / PROSTAT (PYXIS) 30 ML UDC GT SCH ×2 (08:19→16:20)
[2023-10-31] MEDS: DOCUSATE SODIUM LIQ 100 MG/10 ML UDC GT SCH ×2 (08:19→16:19)
[2023-10-31] MEDS: METOPROLOL TARTRATE 25 MG TABLET GT SCH ×2 (08:20→21:05)
[2023-10-31] MEDS: CALCIUM CARB 600MG /VIT D 1 EACH TABLET GT SCH (08:20)
[2023-10-31] MEDS: THERAHONEY GEL 1.5 OZ TUBE TP SCH (08:21)
[2023-10-31] MEDS: DAKINS QUARTER STRENGTH (0.125%) 480 ML BOTTLE TOP SCH (08:21)
[2023-10-31] MEDS: FAMOTIDINE (20 MG) 20 MG TABLET GT SCH (08:21)
[2023-10-31] MEDS: VITAMINS A AND D 56.7 GM TUBE TP SCH ×2 (08:22→16:25)
[2023-10-31] MEDS ORDERED: MERO1VIA23 IV (09:01)
[2023-10-31] MEDS ORDERED: PANT40SU2 GT (09:01)
[2023-10-31] MEDS ORDERED: SUCR1ORA4 PO (09:02)
[2023-10-31] MEDS: PANTOPRAZOLE 40 MG/PACK PACK GT SCH ×2 (09:41→16:19)
[2023-10-31] MEDS: SUCRALFATE 1 G/10 ML UDC GT SCH ×2 (11:56→17:12)
[2023-10-31] MEDS: MAGNESIUM OXIDE 400 MG TABLET GT SCH (17:12)
[2023-10-31] MEDS: ASCORBIC ACID 500 MG TABLET GT SCH (17:12)
[2023-10-31] MEDS: ASPIRIN 81 MG TAB.CHEW GT SCH (17:12)
[2023-11-01] VITALS (13 sets, daily range): BP systolic 121–130; BP diastolic 55–60; TEMP 98.8–99.1; O2SAT 96–100
[2023-11-01] MEDS: MEROPENEM 1 G in IV NS 0.9% 100 ML IV SCH ×3 (00:26→17:27)
[2023-11-01] MEDS: IPRATROPIUM NEB FS 0.5 MG/2.5 ML AMPUL.NEB NEB SCH ×4 (01:34→20:32)
[2023-11-01] MEDS: ALBUTEROL FS 2.5 MG/3 ML VIAL.NEB NEB SCH ×4 (01:34→20:32)
[2023-11-01] MEDS: GLUCERNA 1.2 1,000 ML BOTTLE NG PRN (03:07)
[2023-11-01] MEDS: INSULIN REGULAR, HUMAN 100 UNIT/ML 3 ML VIAL SQ PRN (05:16)
[2023-11-01] MEDS: BLOOD SUGAR DIAGNOSTIC 1 EACH STRIP IN SCH ×3 (05:16→17:24)
[2023-11-01] MEDS: Potassium Chloride 20 MEQ in IV NS 0.9% 1,000 ML IV SCH (06:23)
[2023-11-01 07:15] LABS: BASOPHILS % (AUTO) 0.4 % (0.0-2.0); EOSINOPHILS # (AUTO) 0.4 K/uL (0.0-0.7); EOSINOPHILS % (AUTO) 7.5 % (0.0-6.0); HEMATOCRIT 26 % (39-51); HEMOGLOBIN 7.6 g/dL (13.5-17.5); LYMPHOCYTES # (AUTO) 1.6 K/uL (0.8-4.8); LYMPHOCYTES % (AUTO) 27.4 % (20.0-44.0); MEAN CORPUSCULAR HEMOGLOBIN 25 PG (26.0-33.0); MEAN CORPUSCULAR HGB CONC 30 g/dl (31.0-36.0); MEAN CORPUSCULAR VOLUME 85 fL (80-96); MONOCYTES # (AUTO) 0.4 K/uL (0.1-1.30); MONOCYTES % (AUTO) 6.2 % (2.0-12.0); NEUTROPHILS # (AUTO) 3.3 K/uL (1.8-8.9); NEUTROPHILS % (AUTO) 58.5 % (43.0-81.0); PLATELET COUNT (AUTO) 428 K/uL (150-450); RED CELL DISTRIBUTION WIDTH 19.7 % (11.5-15.0); WHITE BLOOD COUNT (AUTO) 5.7 K/uL (4.3-11.0)
[2023-11-01] MEDS: SUCRALFATE 1 G/10 ML UDC GT SCH ×3 (07:52→17:24)
[2023-11-01] MEDS: DOCUSATE SODIUM LIQ 100 MG/10 ML UDC GT SCH ×2 (09:42→17:23)
[2023-11-01] MEDS: FAMOTIDINE (20 MG) 20 MG TABLET GT SCH (09:42)
[2023-11-01] MEDS: CALCIUM CARB 600MG /VIT D 1 EACH TABLET GT SCH (09:42)
[2023-11-01] MEDS: PANTOPRAZOLE 40 MG/PACK PACK GT SCH ×2 (09:42→17:24)
[2023-11-01] MEDS: LEVETIRACETAM SOL (5 ML) 100 MG/ML UDC GT SCH (09:42)
[2023-11-01] MEDS: CHLORHEXIDINE GLUCONATE 15 ML UDC MM SCH (09:42)
[2023-11-01] MEDS: METOPROLOL TARTRATE 25 MG TABLET GT SCH (09:45)
[2023-11-01] MEDS: ARGININE/GLUTAMINE/CALCIUM BMB 1 EACH POWD.PACK GT SCH ×2 (09:46→17:24)
[2023-11-01] MEDS: PROSOURCE / PROSTAT (PYXIS) 30 ML UDC GT SCH ×2 (09:46→17:24)
[2023-11-01] MEDS: THERAHONEY GEL 1.5 OZ TUBE TP SCH (10:31)
[2023-11-01] MEDS: DAKINS QUARTER STRENGTH (0.125%) 480 ML BOTTLE TOP SCH (10:31)
[2023-11-01] MEDS: VITAMINS A AND D 56.7 GM TUBE TP SCH ×2 (10:31→17:28)
[2023-11-01] MEDS: MAGNESIUM OXIDE 400 MG TABLET GT SCH (17:23)
[2023-11-01] MEDS: ASCORBIC ACID 500 MG TABLET GT SCH (17:23)
[2023-11-01] MEDS: ASPIRIN 81 MG TAB.CHEW GT SCH (17:24)
== END 2023-11-01 21:55 | DRG 981 ==
LOC: ER 00:48 → TELE 05:46 → MED 13:51
PROVIDERS: ADMIT Internal Medicine; ATTEND Internal Medicine
PROC: 30233N1 Transfusion of Nonautologous Red Blood Cells into Peripheral Vein, Percutaneous Approach (ICD-10-PCS; 2023-10-21)
PROC: 0QB10ZZ Excision of Sacrum, Open Approach (ICD-10-PCS; principal; 2023-10-24)
PROC: 0KBP0ZZ Excision of Left Hip Muscle, Open Approach (ICD-10-PCS; 2023-10-24)
PROC: 05HB33Z Insertion of Infusion Device into Right Basilic Vein, Percutaneous Approach (ICD-10-PCS; 2023-10-26)
PROC: 0Y6D0Z2 Detachment at Left Upper Leg, Mid, Open Approach (ICD-10-PCS; 2023-10-27)
PROC: 0DB68ZX Excision of Stomach, Via Natural or Artificial Opening Endoscopic, Diagnostic (ICD-10-PCS; 2023-10-30)
DX: D50.9 Iron deficiency anemia, unspecified (principal); E43 Unspecified severe protein-calorie malnutrition; N17.0 Acute kidney failure with tubular necrosis; L89.154 Pressure ulcer of sacral region, stage 4; L89.224 Pressure ulcer of left hip, stage 4; R53.2 Functional quadriplegia; K25.4 Chronic or unspecified gastric ulcer with hemorrhage; E11.52 Type 2 diabetes mellitus with diabetic peripheral angiopathy with gangrene; N39.0 Urinary tract infection, site not specified; I69.351 Hemiplegia and hemiparesis following cerebral infarction affecting right dominant side; Z16.24 Resistance to multiple antibiotics; M46.28 Osteomyelitis of vertebra, sacral and sacrococcygeal region; I70.268 Atherosclerosis of native arteries of extremities with gangrene, other extremity; I48.91 Unspecified atrial fibrillation; I11.0 Hypertensive heart disease with heart failure; I50.9 Heart failure, unspecified; Z93.0 Tracheostomy status; Z79.01 Long term (current) use of anticoagulants; Z79.82 Long term (current) use of aspirin; L97.529 Non-pressure chronic ulcer of other part of left foot with unspecified severity; K29.70 Gastritis, unspecified, without bleeding; Z20.822 Contact with and (suspected) exposure to COVID-19; Z74.09 Other reduced mobility; Z93.1 Gastrostomy status; Z79.899 Other long term (current) drug therapy; B96.20 Unspecified Escherichia coli [E. coli] as the cause of diseases classified elsewhere; E78.5 Hyperlipidemia, unspecified; R13.10 Dysphagia, unspecified; R56.9 Unspecified convulsions; E11.621 Type 2 diabetes mellitus with foot ulcer; I48.0 Paroxysmal atrial fibrillation; Z79.4 Long term (current) use of insulin; Z87.09 Personal history of other diseases of the respiratory system; K21.9 Gastro-esophageal reflux disease without esophagitis; M62.50 Muscle wasting and atrophy, not elsewhere classified, unspecified site; Z79.51 Long term (current) use of inhaled steroids; E11.69 Type 2 diabetes mellitus with other specified complication; Z89.611 Acquired absence of right leg above knee; M62.462 Contracture of muscle, left lower leg; M62.461 Contracture of muscle, right lower leg; M62.422 Contracture of muscle, left upper arm; M62.421 Contracture of muscle, right upper arm; M62.49 Contracture of muscle, multiple sites; R19.5 Other fecal abnormalities
CPT/HCPCS: 31720; 36410; 36415; 71045-TC; 80048-TC; 80076-TC; 80202-TC; 81001; 82272-TC; 82962-TC; 83540-TC; 83605-TC; 83735-TC; 84100-TC; 84443-TC; 84484-TC; 85025-TC; 85027-TC; 85610-TC; 85730-TC; 86850-TC; 87040-TC; 87081-TC; 87086-TC; 94640-TC; 94760-TC; 94799-TC; A4223; A4623; A6253; A6403; A7526; C9803; G0378; J0690; J0692; J1815; J1953; J2185; J2250; J2405; J2543; J2704; J3010; J3370; J3480; J3490; J7030; J7050; J7060; J7070; P9016

== ENCOUNTER 2024-01-22 16:42 | Inpatient (IN) | payer MEDICARE, OTHER ==
[~2024-01-22] VITALS: Ht 121.9 cm; Wt 47.2 kg
[~2024-01-22 16:42] MED LIST changes: +ACET-868 GT; -ACET650S26 GT; +AMIN30LI2 GT; -AMLO-212 GT; -ARGI1POW13 GT; -DOXA2TAB2 GT; -FAMO20TA8 GT; -FURO-144 GT; -HYDR-4076 GT; +HYDR-4303 GT; +LEVO500T90 GT; -LEVO500T90 PO; +MERO1VIA23 IV; -METR500T PO; +PANT40SU2 GT; -PETR113O TP; -POTA20PA3 GT; +SOD FERRIC GLUC 125 MG in IV NS 0.9% 100 ML IV SCH; -SODI480S2 TOP; +SUCR1ORA4 PO; -XEROFORM TD
[2024-01-22 17:00] VITALS: O2SAT 97
[2024-01-22] MEDS: PANTOPRAZOLE 40 MG VIAL IV ONE (17:00)
[2024-01-22] MEDS ORDERED: PANTOPRAZOLE 40 MG VIAL ONE (17:10)
[2024-01-22 17:38] LABS: BASOPHILS # (AUTO) 0.1 K/uL (0.0-0.2); BASOPHILS % (AUTO) 0.7 % (0.0-2.0); EOSINOPHILS # (AUTO) 0.5 K/uL (0.0-0.7); EOSINOPHILS % (AUTO) 5.8 % (0.0-6.0); HEMATOCRIT 21 % (39-51); LYMPHOCYTES # (AUTO) 1.7 K/uL (0.8-4.8); LYMPHOCYTES % (AUTO) 19.9 % (20.0-44.0); MEAN CORPUSCULAR HEMOGLOBIN 22 PG (26.0-33.0); MEAN CORPUSCULAR HGB CONC 31 g/dl (31.0-36.0); MEAN CORPUSCULAR VOLUME 72 fL (80-96); MONOCYTES # (AUTO) 0.7 K/uL (0.1-1.30); MONOCYTES % (AUTO) 8.2 % (2.0-12.0); NEUTROPHILS # (AUTO) 5.6 K/uL (1.8-8.9); NEUTROPHILS % (AUTO) 65.4 % (43.0-81.0); PLATELET COUNT (AUTO) 720 K/uL (150-450); RED BLOOD CELL COUNT(AUTO) 2.98 MIL/uL (4.5-6.0); RED CELL DISTRIBUTION WIDTH 21.2 % (11.5-15.0); WHITE BLOOD COUNT (AUTO) 8.5 K/uL (4.3-11.0)
[2024-01-22 17:40] LABS: HEMOGLOBIN 6.5 g/dL (13.5-17.5)
[2024-01-22 17:48] LABS: INR 1.18 (0.91-1.10); PARTIAL THROMBOPLASTIN TIME 30.5 SEC (24.3-34.3); PROTHROMBIN TIME 12.4 SECS (9.2-11.1)
[2024-01-22 17:49] LABS: CALCIUM, SERUM 9.8 mg/dL (8.5-10.1); CREATININE 0.7 mg/dL (0.6-1.3); POTASSIUM 3.5 mmol/L (3.5-5.1)
[2024-01-22 17:56] LABS: EOSINOPHILS % (MANUAL) 5 % (0-4); LYMPHOCYTES % (MANUAL) 20 % (16-48); MONOCYTES % (MANUAL) 10 % (0-11.0); NEUTROPHILS % (MANUAL) 65 (42-76)
[2024-01-22 17:57] LABS: ANISOCYTOSIS 1+; HYPOCHROMASIA 2+; OVALOCYTES 1+; PLATELET ESTIMATE INCREASED; TEAR DROP CELLS 1+
[2024-01-22 17:59] LABS: ALBUMIN 1.8 g/dL (3.4-5.0); BILIRUBIN,DIRECT 0.1 mg/dL (0.0-0.2); BILIRUBIN,TOTAL 0.2 mg/dL (0.2-1.0); TOTAL PROTEIN, SERUM 8.9 g/dL (6.4-8.2)
[2024-01-22 19:40] VITALS: O2SAT 99
[2024-01-22] MEDS ORDERED: EPOE40007 SQ (20:04)
[2024-01-22] MEDS ORDERED: ACET160L44 GT (20:04)
[2024-01-22] MEDS ORDERED: ALBU2.5V38 IH (20:04)
[2024-01-22] MEDS ORDERED: METO50TA16 GT (20:04)
[2024-01-22] MEDS ORDERED: VITAMIN C LIQUID GT (20:04)
[2024-01-22] MEDS ORDERED: MULTIVI GT (20:04)
[2024-01-22] MEDS ORDERED: SOD62.5V IV (20:04)
[2024-01-22] MEDS ORDERED: ZINC220C6 GT (20:04)
[2024-01-22] MEDS ORDERED: OMEP20TA5 GT (20:04)
[2024-01-22] MEDS ORDERED: MINERALS GT (20:04)
[2024-01-22] MEDS ORDERED: LEVE100S GT (20:04)
[2024-01-22] MEDS ORDERED: FERR220E2 GT (20:04)
[2024-01-22] MEDS ORDERED: ISOSORBIDE MONONITRATE (30MG) 30 MG TAB.SR.24H PO ONE (20:30)
[2024-01-22] MEDS ORDERED: ACETAMINOPHEN 325 MG TABLET PO PRN (20:30)
[2024-01-22] MEDS ORDERED: ONDANSETRON HCL/PF 4 MG/2 ML VIAL IVP PRN (20:30)
[2024-01-22 20:57] LABS: IRON, SERUM 22 ug/dl (50-175); TOTAL IRON BINDING CAPACITY 249 ug/dl (250-450)
[2024-01-22] MEDS ORDERED: VANCOMYCIN 1 GM /D5W 250 ML PB IV ONE (21:01)
[2024-01-22] MEDS ORDERED: PIPERACI/TAZO 3.375GM/D5W 50ML PB IV ONE (21:01)
[2024-01-22 21:40] VITALS: BP 116/68; TEMP 97.7
[2024-01-22 22:00] LABS: FERRITIN 246 ng/mL (8-388)
[2024-01-22] MEDS: SOD FERRIC GLUC 125 MG in IV NS 0.9% 100 ML IV SCH (22:13)
[2024-01-22] MEDS: MAGNESIUM OXIDE 400 MG TABLET GT SCH (23:27)
[2024-01-22] MEDS: METOPROLOL TARTRATE 50 MG TABLET GT SCH (23:31)
[2024-01-22] MEDS: LEVETIRACETAM SOL (5 ML) 100 MG/ML UDC GT SCH (23:32)
[2024-01-22] MEDS: PIPERACILLIN /TAZOBACTAM 3.375 G in IV D5W 50 ML IV ONE (23:48)
[2024-01-22 23:50] VITALS: O2SAT 98
[2024-01-23] VITALS (11 sets, daily range): BP systolic 92–117; BP diastolic 52–60; TEMP 97.7–99; O2SAT 95–100
[2024-01-23] MEDS: ZOSYN IVPB 2.25 G in IV D5W 50ml IV SCH
[2024-01-23] MEDS: VANCOMYCIN 1 GM in IV D5W 250 ML IV ONE (00:07)
[2024-01-23] MEDS: ISOSORBIDE MONONITRATE (30MG) 30 MG TAB.SR.24H PO ONE (00:46)
[2024-01-23] MEDS: PANTOPRAZOLE 40 MG VIAL IV SCH (05:42)
[2024-01-23 05:58] LABS: BASOPHILS % (AUTO) 0.4 % (0.0-2.0); EOSINOPHILS # (AUTO) 0.3 K/uL (0.0-0.7); EOSINOPHILS % (AUTO) 4.1 % (0.0-6.0); HEMATOCRIT 27 % (39-51); HEMOGLOBIN 8.4 g/dL (13.5-17.5); LYMPHOCYTES # (AUTO) 1.1 K/uL (0.8-4.8); LYMPHOCYTES % (AUTO) 15.4 % (20.0-44.0); MEAN CORPUSCULAR HEMOGLOBIN 23 PG (26.0-33.0); MEAN CORPUSCULAR HGB CONC 31 g/dl (31.0-36.0); MEAN CORPUSCULAR VOLUME 75 fL (80-96); MONOCYTES # (AUTO) 0.6 K/uL (0.1-1.30); MONOCYTES % (AUTO) 7.8 % (2.0-12.0); NEUTROPHILS # (AUTO) 5.3 K/uL (1.8-8.9); NEUTROPHILS % (AUTO) 72.3 % (43.0-81.0); PLATELET COUNT (AUTO) 665 K/uL (150-450); RED BLOOD CELL COUNT(AUTO) 3.61 MIL/uL (4.5-6.0); RED CELL DISTRIBUTION WIDTH 23.4 % (11.5-15.0); WHITE BLOOD COUNT (AUTO) 7.4 K/uL (4.3-11.0)
[2024-01-23 06:05] LABS: CALCIUM, SERUM 9.6 mg/dL (8.5-10.1); CREATININE 0.6 mg/dL (0.6-1.3); MAGNESIUM 2.3 mg/dL (1.8-2.4); PHOSPHORUS 2.8 mg/dL (2.5-4.9); POTASSIUM 3.1 mmol/L (3.5-5.1)
[2024-01-23] MEDS: MULTIVITAMINS,THERAGRAN 1 UDTAB TABLET GT SCH (09:23)
[2024-01-23] MEDS: CHLORHEXIDINE GLUCONATE 15 ML UDC MM SCH (09:23)
[2024-01-23] MEDS: PROSOURCE / PROSTAT (PYXIS) 30 ML UDC GT SCH (09:23)
[2024-01-23] MEDS: ASCORBIC ACID 500 MG TABLET PO SCH (09:23)
[2024-01-23] MEDS: CALCIUM CARB 600MG /VIT D 1 EACH TABLET GT SCH (09:23)
[2024-01-23] MEDS: VANCOMYCIN 500 MG in IV D5W 100ml IV SCH (09:23)
[2024-01-23] MEDS: POTASSIUM CL. PREMIX PERIPHER. 50 ML IV SCH (10:46)
[2024-01-23] MEDS: DAKINS QUARTER STRENGTH (0.125%) 480 ML BOTTLE TOP SCH (14:37)
[2024-01-23] MEDS: THERAHONEY GEL 1.5 OZ TUBE TP SCH (14:37)
[2024-01-23] MEDS: DOCUSATE SODIUM 100 MG CAPSULE PO SCH (17:32)
[2024-01-24] VITALS (11 sets, daily range): BP systolic 96–132; BP diastolic 46–67; TEMP 97.7–99.1; O2SAT 98–100
[2024-01-24 06:14] LABS: BASOPHILS % (AUTO) 0.5 % (0.0-2.0); EOSINOPHILS # (AUTO) 0.4 K/uL (0.0-0.7); EOSINOPHILS % (AUTO) 4.5 % (0.0-6.0); HEMATOCRIT 27 % (39-51); HEMOGLOBIN 8.3 g/dL (13.5-17.5); LYMPHOCYTES # (AUTO) 1.3 K/uL (0.8-4.8); LYMPHOCYTES % (AUTO) 16.1 % (20.0-44.0); MEAN CORPUSCULAR HEMOGLOBIN 24 PG (26.0-33.0); MEAN CORPUSCULAR HGB CONC 31 g/dl (31.0-36.0); MEAN CORPUSCULAR VOLUME 77 fL (80-96); MONOCYTES # (AUTO) 0.6 K/uL (0.1-1.30); MONOCYTES % (AUTO) 7.6 % (2.0-12.0); NEUTROPHILS % (AUTO) 71.3 % (43.0-81.0); PLATELET COUNT (AUTO) 635 K/uL (150-450); RED BLOOD CELL COUNT(AUTO) 3.49 MIL/uL (4.5-6.0); RED CELL DISTRIBUTION WIDTH 24.5 % (11.5-15.0); WHITE BLOOD COUNT (AUTO) 8.4 K/uL (4.3-11.0)
[2024-01-24 06:28] LABS: CREATININE 0.7 mg/dL (0.6-1.3); MAGNESIUM 2.4 mg/dL (1.8-2.4); POTASSIUM 3.1 mmol/L (3.5-5.1)
[2024-01-24] MEDS: POTASSIUM CHLORIDE 20 MEQ POWDER PACKET NG SCH (10:49)
[2024-01-24] MEDS: GLUCERNA 1.2 1,000 ML BOTTLE GT PRN (12:45)
[2024-01-24 15:39] LABS: OCCULT BLOOD STOOL NEGATIVE (NEGATIVE)
[2024-01-24] MEDS: MUPIROCIN OINT 2% 22 GM TUBE NS SCH (20:40)
[2024-01-25] VITALS (12 sets, daily range): BP systolic 102–127; BP diastolic 44–66; TEMP 97.7–99.5; O2SAT 97–100
[2024-01-25 07:12] LABS: BASOPHILS % (AUTO) 0.6 % (0.0-2.0); EOSINOPHILS # (AUTO) 0.3 K/uL (0.0-0.7); EOSINOPHILS % (AUTO) 3.9 % (0.0-6.0); HEMATOCRIT 27 % (39-51); HEMOGLOBIN 8.2 g/dL (13.5-17.5); LYMPHOCYTES # (AUTO) 1.3 K/uL (0.8-4.8); LYMPHOCYTES % (AUTO) 18.4 % (20.0-44.0); MEAN CORPUSCULAR HEMOGLOBIN 24 PG (26.0-33.0); MEAN CORPUSCULAR HGB CONC 31 g/dl (31.0-36.0); MEAN CORPUSCULAR VOLUME 78 fL (80-96); MONOCYTES # (AUTO) 0.6 K/uL (0.1-1.30); MONOCYTES % (AUTO) 8.3 % (2.0-12.0); NEUTROPHILS # (AUTO) 4.7 K/uL (1.8-8.9); NEUTROPHILS % (AUTO) 68.8 % (43.0-81.0); PLATELET COUNT (AUTO) 628 K/uL (150-450); RED BLOOD CELL COUNT(AUTO) 3.42 MIL/uL (4.5-6.0); RED CELL DISTRIBUTION WIDTH 24.6 % (11.5-15.0); WHITE BLOOD COUNT (AUTO) 6.8 K/uL (4.3-11.0)
[2024-01-25 07:17] LABS: CALCIUM, SERUM 9.6 mg/dL (8.5-10.1); CREATININE 0.7 mg/dL (0.6-1.3); MAGNESIUM 2.3 mg/dL (1.8-2.4); PHOSPHORUS 4.6 mg/dL (2.5-4.9); POTASSIUM 3.2 mmol/L (3.5-5.1)
[2024-01-25] MEDS: VANCOMYCIN 750 MG in IV D5W 250 ML IV SCH (09:23)
[2024-01-25] MEDS: POTASSIUM CHLORIDE 20 MEQ POWDER PACKET GT SCH (11:31)
[2024-01-25] MEDS: DOCUSATE SODIUM LIQ 100 MG/10 ML UDC GT SCH (17:25)
[2024-01-26] VITALS (9 sets, daily range): BP systolic 114–140; BP diastolic 54–76; TEMP 97.3–98.6; O2SAT 98–100
[2024-01-26] MEDS: GLUCERNA 1.2 1,000 ML BOTTLE GT SCH (05:01)
[2024-01-26 07:44] LABS: BASOPHILS # (AUTO) 0.1 K/uL (0.0-0.2); BASOPHILS % (AUTO) 0.8 % (0.0-2.0); EOSINOPHILS # (AUTO) 0.3 K/uL (0.0-0.7); EOSINOPHILS % (AUTO) 3.7 % (0.0-6.0); HEMATOCRIT 26 % (39-51); LYMPHOCYTES # (AUTO) 1.3 K/uL (0.8-4.8); LYMPHOCYTES % (AUTO) 16.7 % (20.0-44.0); MEAN CORPUSCULAR HEMOGLOBIN 24 PG (26.0-33.0); MEAN CORPUSCULAR HGB CONC 31 g/dl (31.0-36.0); MEAN CORPUSCULAR VOLUME 77 fL (80-96); MONOCYTES # (AUTO) 0.7 K/uL (0.1-1.30); MONOCYTES % (AUTO) 8.3 % (2.0-12.0); NEUTROPHILS # (AUTO) 5.7 K/uL (1.8-8.9); NEUTROPHILS % (AUTO) 70.5 % (43.0-81.0); PLATELET COUNT (AUTO) 596 K/uL (150-450); RED BLOOD CELL COUNT(AUTO) 3.39 MIL/uL (4.5-6.0); RED CELL DISTRIBUTION WIDTH 24.6 % (11.5-15.0); WHITE BLOOD COUNT (AUTO) 8.1 K/uL (4.3-11.0)
[2024-01-26 08:13] LABS: CALCIUM, SERUM 9.3 mg/dL (8.5-10.1); CHLORIDE 110 mmol/L (98-107); CREATININE 0.6 mg/dL (0.6-1.3); GLUCOSE 138 mg/dL (74-106); PHOSPHORUS 3.7 mg/dL (2.5-4.9); POTASSIUM 3.5 mmol/L (3.5-5.1); SODIUM SERUM 148 mmol/L (136-145); UREA NITROGEN, BLOOD 20 mg/dL (7-18)
[2024-01-26 08:20] LABS: CARBON DIOXIDE 27 mmol/L (21-32)
[2024-01-26] MEDS: ASCORBIC ACID 500 MG TABLET GT SCH (09:06)
[2024-01-26] MEDS: PIPERACILLIN /TAZOBACTAM 3.375 G in IV D5W 100 ML IV SCH (13:19)
[2024-01-27] VITALS (12 sets, daily range): BP systolic 98–133; BP diastolic 50–64; TEMP 97.7–100; O2SAT 97–100
[2024-01-27 07:43] LABS: CALCIUM, SERUM 9.3 mg/dL (8.5-10.1); CREATININE 0.7 mg/dL (0.6-1.3)
[2024-01-27] MEDS: POTASSIUM CHLORIDE 20 MEQ POWDER PACKET PO ONE (08:47)
[2024-01-27] MEDS: ACETAMINOPHEN 650 MG/20.3 ML UDC GT PRN (16:22)
[2024-01-28] VITALS (12 sets, daily range): BP systolic 121–141; BP diastolic 42–80; TEMP 95.4–99; O2SAT 96–100
[2024-01-28 07:04] LABS: BASOPHILS # (AUTO) 0.1 K/uL (0.0-0.2); BASOPHILS % (AUTO) 0.7 % (0.0-2.0); EOSINOPHILS # (AUTO) 0.4 K/uL (0.0-0.7); EOSINOPHILS % (AUTO) 5.4 % (0.0-6.0); HEMATOCRIT 26 % (39-51); LYMPHOCYTES # (AUTO) 2.5 K/uL (0.8-4.8); LYMPHOCYTES % (AUTO) 30.4 % (20.0-44.0); MEAN CORPUSCULAR HEMOGLOBIN 24 PG (26.0-33.0); MEAN CORPUSCULAR HGB CONC 30 g/dl (31.0-36.0); MEAN CORPUSCULAR VOLUME 78 fL (80-96); MONOCYTES # (AUTO) 0.6 K/uL (0.1-1.30); MONOCYTES % (AUTO) 7.1 % (2.0-12.0); NEUTROPHILS # (AUTO) 4.6 K/uL (1.8-8.9); NEUTROPHILS % (AUTO) 56.4 % (43.0-81.0); PLATELET COUNT (AUTO) 520 K/uL (150-450); RED BLOOD CELL COUNT(AUTO) 3.37 MIL/uL (4.5-6.0); RED CELL DISTRIBUTION WIDTH 24.7 % (11.5-15.0); WHITE BLOOD COUNT (AUTO) 8.2 K/uL (4.3-11.0)
[2024-01-28 07:17] LABS: CALCIUM, SERUM 9.4 mg/dL (8.5-10.1); CREATININE 0.7 mg/dL (0.6-1.3); POTASSIUM 3.6 mmol/L (3.5-5.1)
[2024-01-28] MEDS: PANTOPRAZOLE 40 MG/PACK PACK GT SCH (20:11)
[2024-01-29] VITALS (11 sets, daily range): BP systolic 97–132; BP diastolic 53–89; TEMP 97.5–99.1; O2SAT 96–100
[2024-01-29 07:19] LABS: BASOPHILS # (AUTO) 0.1 K/uL (0.0-0.2); BASOPHILS % (AUTO) 0.9 % (0.0-2.0); EOSINOPHILS # (AUTO) 0.4 K/uL (0.0-0.7); EOSINOPHILS % (AUTO) 5.1 % (0.0-6.0); HEMATOCRIT 25 % (39-51); HEMOGLOBIN 7.8 g/dL (13.5-17.5); LYMPHOCYTES # (AUTO) 1.3 K/uL (0.8-4.8); LYMPHOCYTES % (AUTO) 18.7 % (20.0-44.0); MEAN CORPUSCULAR HEMOGLOBIN 24 PG (26.0-33.0); MEAN CORPUSCULAR HGB CONC 31 g/dl (31.0-36.0); MEAN CORPUSCULAR VOLUME 78 fL (80-96); MONOCYTES # (AUTO) 0.6 K/uL (0.1-1.30); MONOCYTES % (AUTO) 8.2 % (2.0-12.0); NEUTROPHILS # (AUTO) 4.8 K/uL (1.8-8.9); NEUTROPHILS % (AUTO) 67.1 % (43.0-81.0); PLATELET COUNT (AUTO) 523 K/uL (150-450); RED BLOOD CELL COUNT(AUTO) 3.23 MIL/uL (4.5-6.0); RED CELL DISTRIBUTION WIDTH 24.3 % (11.5-15.0); WHITE BLOOD COUNT (AUTO) 7.2 K/uL (4.3-11.0)
[2024-01-29 07:37] LABS: CALCIUM, SERUM 9.2 mg/dL (8.5-10.1); CREATININE 0.7 mg/dL (0.6-1.3); POTASSIUM 3.3 mmol/L (3.5-5.1)
[2024-01-29] MEDS: POTASSIUM CHLORIDE 20 MEQ POWDER PACKET GT ONE (11:53)
[2024-01-30] VITALS (8 sets, daily range): BP systolic 116–134; BP diastolic 54–64; TEMP 98.4–98.6; O2SAT 99–100
[2024-01-30 06:42] LABS: BASOPHILS # (AUTO) 0.1 K/uL (0.0-0.2); EOSINOPHILS # (AUTO) 0.5 K/uL (0.0-0.7); HEMATOCRIT 25 % (39-51); HEMOGLOBIN 7.5 g/dL (13.5-17.5); LYMPHOCYTES # (AUTO) 1.4 K/uL (0.8-4.8); LYMPHOCYTES % (AUTO) 17.9 % (20.0-44.0); MEAN CORPUSCULAR HEMOGLOBIN 24 PG (26.0-33.0); MEAN CORPUSCULAR HGB CONC 31 g/dl (31.0-36.0); MEAN CORPUSCULAR VOLUME 77 fL (80-96); MONOCYTES # (AUTO) 0.6 K/uL (0.1-1.30); MONOCYTES % (AUTO) 8.2 % (2.0-12.0); NEUTROPHILS # (AUTO) 5.2 K/uL (1.8-8.9); NEUTROPHILS % (AUTO) 66.9 % (43.0-81.0); PLATELET COUNT (AUTO) 489 K/uL (150-450); RED BLOOD CELL COUNT(AUTO) 3.17 MIL/uL (4.5-6.0); RED CELL DISTRIBUTION WIDTH 24.3 % (11.5-15.0); WHITE BLOOD COUNT (AUTO) 7.8 K/uL (4.3-11.0)
[2024-01-30 07:07] LABS: CALCIUM, SERUM 9.1 mg/dL (8.5-10.1); CREATININE 0.8 mg/dL (0.6-1.3); POTASSIUM 3.5 mmol/L (3.5-5.1)
[2024-01-30] MEDS ORDERED: ASCO500T21 GT (10:15)
[2024-01-30] MEDS ORDERED: DOCU50LI GT (10:15)
[2024-01-30] MEDS ORDERED: COLL30OI TP (10:15)
[2024-01-30] MEDS ORDERED: PIPE3.379 IV (10:15)
[2024-01-30] MEDS ORDERED: SODI473S8 TOP (10:15)
[2024-01-30] MEDS ORDERED: NUT.237L45 GT (10:15)
[2024-01-30] MEDS ORDERED: MUPI22OI7 NS (10:15)
[2024-01-30] MEDS ORDERED: PANT40SU2 GT (10:15)
== END 2024-01-30 18:47 | DRG 981 ==
LOC: ER 16:45 → TELE 20:23 → MED 01-30 17:38
PROVIDERS: ADMIT Nurse Practitioner Acute Care; ATTEND Nurse Practitioner Acute Care
PROC: 30233N1 Transfusion of Nonautologous Red Blood Cells into Peripheral Vein, Percutaneous Approach (ICD-10-PCS; 2024-01-22)
PROC: 0QB10ZZ Excision of Sacrum, Open Approach (ICD-10-PCS; principal; 2024-01-26)
PROC: 0QB30ZZ Excision of Left Pelvic Bone, Open Approach (ICD-10-PCS; 2024-01-26)
PROC: 02HV33Z Insertion of Infusion Device into Superior Vena Cava, Percutaneous Approach (ICD-10-PCS; 2024-01-26)
PROC: B548ZZA Ultrasonography of Superior Vena Cava, Guidance (ICD-10-PCS; 2024-01-26)
DX: J15.9 Unspecified bacterial pneumonia (principal); E43 Unspecified severe protein-calorie malnutrition; L89.224 Pressure ulcer of left hip, stage 4; L89.154 Pressure ulcer of sacral region, stage 4; R53.2 Functional quadriplegia; D68.59 Other primary thrombophilia; J96.10 Chronic respiratory failure, unspecified whether with hypoxia or hypercapnia; M86.8X8 Other osteomyelitis, other site; J98.11 Atelectasis; I69.354 Hemiplegia and hemiparesis following cerebral infarction affecting left non-dominant side; I69.351 Hemiplegia and hemiparesis following cerebral infarction affecting right dominant side; E11.69 Type 2 diabetes mellitus with other specified complication; E88.09 Other disorders of plasma-protein metabolism, not elsewhere classified; E11.51 Type 2 diabetes mellitus with diabetic peripheral angiopathy without gangrene; I50.9 Heart failure, unspecified; I48.0 Paroxysmal atrial fibrillation; E78.5 Hyperlipidemia, unspecified; D50.9 Iron deficiency anemia, unspecified; I11.0 Hypertensive heart disease with heart failure; E86.0 Dehydration; R13.10 Dysphagia, unspecified; Z93.1 Gastrostomy status; K80.20 Calculus of gallbladder without cholecystitis without obstruction; I25.10 Atherosclerotic heart disease of native coronary artery without angina pectoris; K57.30 Diverticulosis of large intestine without perforation or abscess without bleeding; Z74.01 Bed confinement status; N20.0 Calculus of kidney; Z89.511 Acquired absence of right leg below knee; Z89.512 Acquired absence of left leg below knee; K25.9 Gastric ulcer, unspecified as acute or chronic, without hemorrhage or perforation; K29.70 Gastritis, unspecified, without bleeding; I48.91 Unspecified atrial fibrillation; Z93.0 Tracheostomy status; K21.9 Gastro-esophageal reflux disease without esophagitis; M62.50 Muscle wasting and atrophy, not elsewhere classified, unspecified site; Z79.51 Long term (current) use of inhaled steroids; Z79.4 Long term (current) use of insulin; Z79.82 Long term (current) use of aspirin; Z79.01 Long term (current) use of anticoagulants; Z87.11 Personal history of peptic ulcer disease; Y95 Nosocomial condition; R79.89 Other specified abnormal findings of blood chemistry; Z87.440 Personal history of urinary (tract) infections; M62.462 Contracture of muscle, left lower leg; M62.461 Contracture of muscle, right lower leg; M62.422 Contracture of muscle, left upper arm; M62.421 Contracture of muscle, right upper arm; Z87.19 Personal history of other diseases of the digestive system
CPT/HCPCS: 31720; 36415; 71045-TC; 80048-TC; 80076-TC; 80202-TC; 82272-TC; 82728-TC; 82962-TC; 83540-TC; 83690-TC; 83735-TC; 84100-TC; 85025-TC; 85652-TC; 85730-TC; 86140-TC; 86850-TC; 87040-TC; 87081-TC; 94640-TC; 94799-TC; A4223; A4623; A6253; A6403; A7526; C9113; G0378; J1953; J2543; J2916; J3370; J3371; J3480; J7030; J7040; J7050; J7060; P9016